=== PATIENT | female | born 1995 | race Caucasian/White ===

== ENCOUNTER 2018-03-07 18:58 | Emergency (ER) | payer MEDICAID, SELFPAY ==
[2018-03-07 19:11] VITALS: BP 149/106; PULSE 84; RESP 16; TEMP 36.9; O2SAT 98
--- NOTE | 2018-03-07 19:39 | DI.CT_ITS ---
SYMPTOM/DIAGNOSIS: LUQ PAIN ABDOMINAL AND PELVIC CT: 03/07 CT examination of the abdomen and pelvis was performed with a bolus infusion of 100 cc Omnipaque 350. Images obtained through the lung bases are unremarkable. Liver, spleen and pancreas appear normal. Gallbladder is contracted but normal. No biliary dilatation seen. There is question of mild wall thickening of gastric antrum. Stomach is distended. Question mild wall thickening of loops of small bowel in left upper quadrant and pelvis. Appendix is normal. Colon is unremarkable in appearance. WASTE SALVAGER structures appear intact. No abdominal wall hernia seen. No abdominal or pelvic adenopathy seen. Abdominal aorta is of normal diameter. No major vascular abnormalities seen. Adrenals and kidneys appear normal. CONCLUSION: Questionable findings of gastric antral and small bowel wall thickening, correlation requested regarding the possibility of gastritis and/or enteritis. No significant additional findings.
--- NOTE | 2018-03-07 19:43 | ED.GENADUL_ITS ---
Discharge Plan Disposition Patient Disposition: HOME Condition: Fair Discharge Details Chief Complaint: Abd Prob Clinical Impression: Enteritis Primary Care Provider: Court Wayne ED Provider: Wilma Soto Home Meds and New Rx's Prescriptions: New ondansetron [Zofran ODT] 4 mg tablet,disintegrating 4 mg PO QID PRN (Reason: nausea and vomiting) Qty: 10 RF: 0 Continue epinephrine [EpiPen 2-Fabián] 0.3 MG/0.3 ML auto-injector 0.3 mg IM ONCE Qty: 1 RF: 1 norethindrone (contraceptive) 0.35 MG tablet 1 tab-cap PO DAILY Qty: 3 RF: 3 Discharge Instructions Instructions: Enteritis (ED) Additional Instructions: Encourage hydration. Take Zofran as prescribed to help with nausea. Tylenol as needed for discomfort. May continue with Mylanta to help with stomach pain. Please follow up with primary care at the end of the week if symptoms persist. If you develop increased pain, inability to stay hydrated, fevers/chillls or other new/worsening symptoms please seek care urgently once again. Referrals: Court Wayne [Primary Care Provider] - Medical Decision Making Patient presents today with c/c of LUQ abdominal pain. Reports that she has had N/V/D x 2 days. V x 2 today. Had 3 soft BM today. States that two hours prior to arrival she had a sudden onset of LUQ pain. No prior surgeries. States she has been feeling hot/cold over the past few days. Patient afebrile, nontoxic appears. HR 84. Abdomen is soft on exam, no peritoneal findings. She is endorsing pain in LUQ, epigastric and periumbilical pain on exam. Patient reported that she was having blood in stool, CARLOS without abnormality. No pain on palpation. Heme negative stool. Will obtain laboratory evaluation. given the sudden onset of her discomfort and feeling of fever at home, will also obtain CT. CT reviewed by radiologist. Advised the liver is normal with no mass. Gallbladder is decompressed. Pancreas is normal no ductal dilation. Spleen is normal with no spinal megaly. Adrenals are normal, no mass. Kidneys are normal , no hydronephrosis. Mild scattered small bowel wall thickening is present especially in the pelvis. No obstruction. Appendix is normal with no signs of appendicitis. Bladder is unremarkable as visualized. Reproductive system is unremarkable as visualized. No free air, no significant fluid collection. No acute fracture dislocation. Soft tissues are unremarkable. No abdominal aortic aneurysm. No enlarged lymph nodes. Nipple jewelry was noted. Advised that the overall impression is small bowel findings to suggest mild enteritis with no other acute findings. Laboratory evaluation without significant abnormality. No leukocytosis. Lipase normal. Discussed findings with the patient. Advised radiologist interpreted CT as enteritis. Encourage hydration. Patient at this point is expressing increased discomfort is requesting pain medication as well as antiemetic. Patient given Toradol, IV Zofran and GI cocktail After above medication, she reports that her pain is greatly improved. Patient discharge diagnosis of enteritis. Encourage hydration. She was sent home with Zofran tonight to help with nausea. Advised she may use Tylenol to help with discomfort. But she may continue with Mylanta of the periodic relief. Primary primary care at the end of the week if symptoms persist. She was given strict return precautions. All of her questions and concerns were addressed and she is in agreement with this plan HPI General Mode of arrival: ambulatory . Date/Time Provider Initiated Documentation: 03/07/18 19:15 . Limitations to Documentation: no limitations . Information obtained by: patient . History of Present Illness 22 year old F presents to the emergency department with the chief complaint of LUQ abdominal pain, described as moderate, with intensity rated at 7. Quality is described as burning and stabbing, and is localized to the abdomen. Patient reports radiation to back. Patient started experiencing this hour(s) (2) and it has been constant. No relieving factors improve symptom(s), No exacerbating factors reported . Patient notes fever/chills ( no documented fever but endorses feeling hot/cold chills) and nausea/vomiting ( vomiting x 2 today); denies chest pain, cough (reports she had mild cough last week which has since resolved), headaches, loss of appetite (no change in appetite), rash, shortness of breath and weakness. Patient did receive the following treatments prior to arrival, none Related Data Home Medications Medication Instructions Recorded Confirmed epinephrine [EpiPen 2-Fabián] 0.3 mg IM ONCE #1 pack 01/07/16 03/07/18 norethindrone (contraceptive) 1 tab-cap PO DAILY #3 pack 09/07/16 03/07/18 ondansetron [Zofran ODT] 4 mg PO QID PRN #10 tab 03/07/18 Previous Rx's Medication Instructions Recorded ondansetron [Zofran ODT] 4 mg PO QID PRN #10 tab 03/07/18 Allergies Allergy/AdvReac Type Severity Reaction Status Date / Time lavender (Lavandula Allergy Severe Skin Rash Unverified 03/07/18 19:10 angustifolia) melon Allergy Severe tongue Unverified 03/07/18 19:10 swelling and throat closing pineapple Allergy Severe tongue Unverified 03/07/18 19:10 swells and throat closes No Known Drug Allergies Allergy Unverified 03/07/18 19:10 cantolope Allergy Severe throat Uncoded 03/07/18 19:10 closing and tongue swelling General Stated Complaint: Abd Prob ZINA: 3 Review of Systems Constitutional Reports as per HPI Cardiovascular Reports as per HPI, Denies chest pain, Denies rapid heart rate, Denies dyspnea and Denies dyspnea on exertion Respiratory Denies chest congestion, Denies cough, Denies dyspnea and Denies dyspnea on exertion Gastrointestinal Reports as per HPI Genitourinary Denies dyspareunia, Denies dysuria, Denies flank pain, Denies urinary urgency and Denies vaginal discharge Integumentary/Breasts Denies rash PFSH Family History Grandfather Diabetes Grandmother Diabetes Social History Smoking/Tobacco Use Status: Never Exam Const General: cooperative, healthy appearing, comfortable, no acute distress, well developed and well groomed Nutritional Appearance: average body habitus and well nourished Orientation: alert and awake Eyes General: appearance normal, both eyes and all related structures Resp Effort & Inspection: normal respiratory effort, able to speak in complete sentences and no respiratory distress Auscultation: clear to auscultation bilaterally Cardio Rate: regular rate Rhythm: regular rhythm Heart Sounds: S1 normal and S2 normal GI Inspection: normal to inspection, no abdominal wall ecchymosis, non-distended, no incisions and no visible herniation Palpation: soft, no hepatosplenomegaly, not firm, no guarding, no hepatomegaly, no hepatosplenomegaly, no masses, not rigid and tender in the epigastrum, in the LLQ and periumbilically; not at McBurney's point, Alvarez's sign negative and with no rebound tenderness Auscultation: hypoactive bowel sounds Rectal Exam - female: visual inspection normal, normal sphincter tone, No fecal impaction, No fissure, heme negative stool, No hemorrhoids, No laceration and No tenderness Back/Spine/Pelvis Back: no CVA tenderness Skin General skin exam: no rashes or lesions noted Neuro General: alert and awake Cognition: normal cognition Speech: speech normal Gait: normal gait Extrem General: no pedal edema and no calf tenderness Psych Appearance: grossly normal and well kempt Mental Status: mental status grossly normal Speech and Movement: speech and movement normal Course Vital Signs Temperature 36.9 C 03/07/18 19:11 Pulse 84 03/07/18 19:11 Respiratory Rate 16 03/07/18 19:11 Blood Pressure 149/106 H 03/07/18 19:11 Pulse Oximetry 98 03/07/18 19:11 Temperature 36.9 C 03/07/18 19:11 Temperature Source Temporal Artery Scan 03/07/18 19:11 Pulse 84 03/07/18 19:11 Respiratory Rate 16 03/07/18 19:11 Respiratory Effort 03/07/18 19:11 Blood Pressure 149/106 H 03/07/18 19:11 Blood Pressure Position Sitting 03/07/18 19:11 Pulse Oximetry 98 03/07/18 19:11 Oxygen Delivery Method Room Air 03/07/18 19:11 Oxygen Flow Rate 0 03/07/18 19:11 Pain Level 7 03/07/18 19:11
[2018-03-07 20:07] LABS: Abs Immature Grans 0.03 k/cumm (0.0-0.09); Absolute Basophil Count 0.01 k/cumm (0.0-0.2); Absolute Eosinophil Count 0.07 k/cumm (0.0-0.7); Absolute Lymphocyte Count 1.54 k/cumm (1.2-3.4); Absolute Monocyte Count 0.74 k/cumm (0.11-0.7); Absolute Neutrophil Count 6.46 k/cumm (1.2-6.7); Basophils % 0.1; Eosinophils % 0.8; HCT 40.4 % (36.0-46.0); HGB 13.8 g/dL (12.0-15.5); Immature Grans % 0.3; Lymphocytes % 17.4; Mean Corp. HGB Concentration 34.2 g/dL (32.0-36.0); Mean Corpuscular Hemoglobin 30.7 pg (27.0-33.0); Mean Platelet Volume 10.6 fL (8.0-11.0); Monocytes % 8.4; Platelet Count 286 x1000/uL (130-400); RBC 4.49 m/cumm (4.00-5.20); RBC Distribution Width 11.9 % (11.7-14.6); White Blood Cell Count 8.85 k/cumm (4.4-10.8)
[2018-03-07 20:18] LABS: Bilirubin Negative (Negative); Blood Negative (Negative); Clarity Clear; Glucose Negative (Negative); Ketones Negative (Negative); Leukocyte Esterase Negative (Negative); Nitrite Negative (Negative); Urobilinogen 0.2 EU/dL (Up TO 0.2); pH 8.5 (5-8)
[2018-03-07 20:24] LABS: ALT 30 U/L (12-78); AST 13 U/L (15-37); Albumin 3.8 g/dL (3.4-5.0); Alkaline Phosphatase 76 U/L (46-116); Anion Gap 5.2 mmol/L (3-11); BUN 7 mg/dL (7-18); Bilirubin, Total 0.2 mg/dL (0.2-1.0); CO2 29.8 mmol/L (21.0-32.0); CREATININE 0.74 mg/dL (0.55-1.02); Calcium 8.9 mg/dL (8.5-10.1); Chloride 104 mmol/L (98-107); Glucose 90 mg/dL (70-100); Lipase 184 U/L (73-393); Potassium 3.5 mmol/L (3.5-5.1); Sodium 139 mmol/L (136-145); Total Protein 7.9 g/dL (6.4-8.2)
[2018-03-07] MEDS: Normal Saline 1,000 ML 1000 ML IV (20:30)
[2018-03-07] MEDS: Omnipaque 350 MG/ML 100 ML BTL IJ (20:31)
--- NOTE | 2018-03-07 21:35 | DI.VRAD_ITS ---
EXAM: CT Abdomen and Pelvis With Intravenous Contrast EXAM DATE/TIME: 03/07/2018 7:41 PM CLINICAL HISTORY: 22 years old, female; Pain; Abdominal pain; Localized; Left upper quadrant (luq); Patient HX: Luq pain TECHNIQUE: Axial computed tomography images of the abdomen and pelvis with intravenous contrast. Coronal and sagittal reformatted images were created and reviewed. COMPARISON: No relevant prior studies available. FINDINGS: Lower thorax: No acute findings. ABDOMEN: Liver: Normal. No mass. Gallbladder and bile ducts: The gallbladder is decompressed. Pancreas: Normal. No ductal dilation. Spleen: Normal. No splenomegaly. Adrenals: Normal. No mass. Kidneys and ureters: Normal. No hydronephrosis. Stomach and bowel: Mild scattered small bowel wall thickening is present especially in the pelvis. No obstruction. Appendix: No evidence of appendicitis. PELVIS: Bladder: Unremarkable as visualized. Reproductive: Unremarkable as visualized. ABDOMEN and PELVIS: Intraperitoneal space: Normal. No free air. No significant fluid collection. Bones/joints: No acute fracture. No dislocation. Soft tissues: Unremarkable. Vasculature: Normal. No abdominal aortic aneurysm. Lymph nodes: Normal. No enlarged lymph nodes. Other findings: Nipple jewelry is present. IMPRESSION: Small bowel findings may be indicative of a mild enteritis. No other acute findings. Dictated and Authenticated by: Jose Antonio Morrison MD. Ordering:RACH SERRANO MD
[2018-03-07] MEDS: Ketorolac 30 MG/ML VIAL IVP (21:45)
[2018-03-07] MEDS: Ondansetron 4 MG/2 ML VIAL IVP (21:46)
[2018-03-07 22:09] VITALS: BP 129/78; PULSE 84; RESP 18; TEMP 36.8; O2SAT 98
== END 2018-03-07 22:10 | disposition home or self-care (01) ==
PROVIDERS: Emergency Provider Physician Assistant; PCP Nurse Practitioner Pediatrics
DX: K52.9 Noninfective gastroenteritis and colitis, unspecified (principal)
CPT/HCPCS: 36415; 80053; 81025; 83690; 96361; 96374; 96375; 99285; 74177; 81003; 85025; J1885; J2405; J3490

== ENCOUNTER 2019-05-04 10:22 | Emergency (ER) | payer MEDICAID, SELFPAY ==
[2019-05-04 10:28] VITALS: BP 127/88; PULSE 84; RESP 18; TEMP 35.9; O2SAT 100
[2019-05-04] MEDS: Tetracaine 0.5% 4 ML BTL OP (10:31)
--- NOTE | 2019-05-04 10:33 | W.ED.GENAD ---
Discharge Plan Disposition Patient Disposition: HOME Condition: Good Discharge Details Chief Complaint: EyeProblem Clinical Impression: Sensation of foreign body in eye Primary Care Provider: None,None ED Provider: Wilma Soto Home Meds and New Rx's Prescriptions: Continued epinephrine [EpiPen 2-Fabián] 0.3 MG/0.3 ML auto-injector 0.3 mg IM ONCE Qty: 1 RF: 1 norethindrone (contraceptive) 0.35 MG tablet 1 tab-cap PO DAILY Qty: 3 RF: 3 ondansetron [Zofran ODT] 4 mg tablet,disintegrating 4 mg PO QID PRN (Reason: nausea and vomiting) Qty: 10 RF: 0 Discharge Instructions Instructions: Eye Foreign Body (ED) Additional Instructions: Encourage hydration. Please do not place any more contacts until you are evaluated by [facility]. Please call them tomorrow to schedule appointment as soon as possible. If you develop redness, drainage, pain, visual changes or other new/worsening symptoms please seek care urgently once again. Your exam is reassuring today I do not see any evidence of retained foreign body. Referrals: [facility] [Outside] Court Wayne [NURSE PRACTITIONER] - Discharge Data Discharge Date/Time-TO BE ENTERED AT DEPARTURE: 05/04/19 11:15 Medical Decision Making Patient is female presents today with chief complaint of retained contact in her left eye. She reports that she put in a fresh contact this morning and felt that it migrated upwards and since that time is had persistent symptoms. She states that she has attempted flushing the eye ? her sensation persist. Patient reports she is up-to-date on tetanus. Denies any acute visual change. On exam, patient is wanting to hold left eye shut. No obvious abnormality of the eye. No injection, discharge, FB noted. Patient able to open eye well with administration of tetracaine. Feels improved after tetracaine. Fluorescein was used with no corneal abrasion, foreign body noted. Eyelid was everted and explored to maximal extent with no retained foreign body. Unable to identify contact. She did not see any evidence of any corneal abrasion. I was flushed with IV fluid by nursing staff. Believes all sensation and patient was likely to flush this out prior to arrival. I did advise follow-up with [facility], patient's ophthalmologic home within the next few days. I also advised that she abstain from contacts and use her glasses until cleared by them. She is given strict return precautions. All of her questions and concerns were addressed she is in agreement this plan. Patient is feeling much improved at the time of discharge. HPI General Mode of arrival: ambulatory. Date/Time Provider Initiated Documentation: 05/04/19 10:25. Limitations to Documentation: no limitations. Information obtained by: patient and RN notes reviewed. History of Present Illness 23 year old F presents to the emergency department with the chief complaint of retained contact lens, left eye, described as mild, with intensity rated at 3. Quality is described as aching (FB sensation), and is localized to the eyes. Patient reports no radiation. Patient started experiencing this minute(s) and it has been constant. No relieving factors improve symptom(s), No exacerbating factors reported . Patient notes no other symptoms.. Patient did receive the following treatments prior to arrival, none Related Data Home Medications Medication Instructions Recorded Confirmed epinephrine [EpiPen 2-Fabián] 0.3 mg IM ONCE #1 pack 01/07/16 05/04/19 norethindrone (contraceptive) 1 tab-cap PO DAILY #3 pack 09/07/16 05/04/19 ondansetron [Zofran ODT] 4 mg PO QID PRN #10 tab 03/07/18 05/04/19 Previous Rx's Medication Instructions Recorded ondansetron [Zofran ODT] 4 mg PO QID PRN #10 tab 03/07/18 Allergies Allergy/AdvReac Type Severity Reaction Status Date / Time lavender (Lavandula Allergy Severe Skin Rash Unverified 05/04/19 10:30 angustifolia) melon Allergy Severe tongue Unverified 05/04/19 10:30 swelling and throat closing pineapple Allergy Severe tongue Unverified 05/04/19 10:30 swells and throat closes No Known Drug Allergies Allergy Unverified 05/04/19 10:30 cantolope Allergy Severe throat Uncoded 05/04/19 10:30 closing and tongue swelling General Stated Complaint: EyeProblem ZINA: 4 Review of Systems Constitutional Constitutional: Reports as per HPI, Denies chills, Denies fatigue, Denies fever(s) and Denies headache(s) Eyes Eyes: Reports as per HPI ENT Ears, Nose, Mouth, and Throat: Denies headache(s) Cardiovascular Cardiovascular: Reports as per HPI, Denies chest pain and Denies lightheadedness Respiratory Respiratory: Denies cough Integumentary/Breasts Skin/Breast: Reports as per HPI, Denies rash, Denies skin pain and Denies skin swelling Neurologic Neurologic: Denies headache(s) and Denies radicular pain Endocrine Endocrine: Denies fatigue PFSH Family History Grandfather Diabetes Grandmother Diabetes Social History Smoking/Tobacco Use Status: Never Alcohol Intake: never Drug use: Never Substance use type: does not use Do you feel safe at home: Yes Do you feel safe in your relationship?: Yes Exam Const General: cooperative, healthy appearing, comfortable, no acute distress, well developed and well groomed Nutritional Appearance: average body habitus and well nourished Orientation: alert, awake and oriented x3 HENMT Head: normal to inspection, normocephalic and atraumatic Ears: hearing grossly normal bilaterally and external ears normal General nose exam: external nose normal and nares normal Face and sinus: normal facial exam and face symmetric Mouth: oral mucosae normal, lip normal and moist mucous membranes Eyes General: appearance normal, both eyes and all related structures Visual Yoder: normal visual yoder by confrontation Alignment and Position: alignment normal and position normal Periorbital: periorbital findings normal Eyelids: eyelids normal (eyelids everted, no FB noted) Conjunctivae: conjunctivae normal Sclera: sclerae normal Cornea: corneas normal and fluorescein used Pupils: PERRL, normal by confrontation and accommodation normal EOM: EOM intact bilaterally Resp Effort & Inspection: normal respiratory effort, able to speak in complete sentences and no respiratory distress Skin General skin exam: no rashes or lesions noted Neuro General: alert, awake and oriented x3 Cranial Nerves: CN's II-XI intact bilaterally Cognition: normal cognition Speech: speech normal Gait: normal gait Psych Appearance: grossly normal and well kempt Mental Status: mental status grossly normal Speech and Movement: speech and movement normal Course Vital Signs Vital signs: Vital Signs Temperature 35.9 C L 05/04/19 10:28 Pulse 84 05/04/19 10:28 Respiratory Rate 18 05/04/19 10:28 Blood Pressure 127/88 05/04/19 10:28 Pulse Oximetry 100 05/04/19 10:28 Temperature 35.9 C L 05/04/19 10:28 Temperature Source Tympanic 05/04/19 10:28 Pulse 84 05/04/19 10:28 Respiratory Rate 18 05/04/19 10:28 Respiratory Effort Non-Labored 05/04/19 10:28 Blood Pressure 127/88 05/04/19 10:28 Blood Pressure Position Sitting 05/04/19 10:28 Pulse Oximetry 100 05/04/19 10:28 Oxygen Delivery Method Room Air 05/04/19 10:28 Oxygen Flow Rate 0 05/04/19 10:28 Pain Level 3 05/04/19 10:28
[2019-05-04] MEDS: Fluorescein STRIPS 100/BOX 1 MG OP (10:35)
== END 2019-05-04 11:15 | disposition home or self-care (01) ==
LOC: ER 11:15
PROVIDERS: Emergency Provider Physician Assistant
DX: H18.822 Corneal disorder due to contact lens, left eye (principal); Z71.1 Person with feared health complaint in whom no diagnosis is made
CPT/HCPCS: 99283

== ENCOUNTER 2019-09-14 08:38 | Outpatient (CLI) | payer MEDICAID, SELFPAY ==
[2019-09-17 11:19] LABS: SARS-CoV-2 RNA Undetected (Undetected); SARS-CoV-2 Specimen Source Nasopharynx
== END 2019-09-14 08:58 ==
PROVIDERS: Visit Provider Pediatrics
DX: R50.9 Fever, unspecified (principal); R05 Cough
CPT/HCPCS: U0003

== ENCOUNTER 2019-12-18 11:16 | Outpatient (REF) | payer MEDICAID, SELFPAY ==
--- NOTE | 2019-12-18 10:30 | PAPFT_PTH ---
PATIENT: Macie Adan LOC: [facility] U#:[id number] AGE/SX: 24/F ROOM: RE12/18/[address]: Makenna Fletcher NP : 1995 BED: DIS: 12/18/2019 SPEC #: [id number] RECD: 12/18/19 12:59 STATUS: KATHLEEN REVanita #: [id number] TERI: 12/18/19 10:[address]: Makenna Fletcher NP DEPT: [facility] Cytology RECD BY: Morelia Hay ENTERED: 12/18/19 12:59 SP TYPE: PAPFT KASIE DR: None Tissues: 1 - CX/ENDOCX FOR PAP SMEARS Procedures: PAP THIN PREP/UVM Screening Comments: [id number] (CHLAMYDIA/GC)
[2019-12-19 15:00] LABS: GC Result Negative (Negative)
[2019-12-19 15:27] LABS: Chlamydia Result Positive (Negative)
== END 2019-12-18 11:36 ==
LOC: LBN 11:16
PROVIDERS: Visit Provider Nurse Practitioner Women's Health
DX: Z12.4 Encounter for screening for malignant neoplasm of cervix (principal)
CPT/HCPCS: 87491; 87591; 88142

== ENCOUNTER 2019-12-19 14:54 | Emergency (ER) | payer MEDICAID, SELFPAY ==
[2019-12-19 14:59] VITALS: BP 143/81; PULSE 106; TEMP 36.7; O2SAT 100
--- NOTE | 2019-12-19 15:10 | W.ED.GENAD ---
Discharge Plan Discharge Details Chief Complaint: RashLesion Primary Care Provider: None,None ED Provider: Constantine Orourke Home Meds and New Rx's Prescriptions: No Action Nexplanon 68 mg implant 1 implant SBD ONCE RF: 0 epinephrine [EpiPen 2-Fabián] 0.3 MG/0.3 ML auto-injector 0.3 mg IM ONCE Qty: 1 RF: 1 diphenhydramine HCl [Benadryl Allergy] 25 mg Tablet 25 mg PO Q6H PRNRF: 0 Medical Decision Making 23-year-old female with approximately 30 raised, erythematous, pruritic lesions that blanches to the touch and appear to be either insect bites or urticaria with small areas of excoriation that now have a slight honey colored crust. She has no systemic signs or symptoms of allergic reaction.. Will treat with oral burst of prednisone, oral antihistamine, topical mupirocin. She understands homecare as well as indications to seek reevaluation. HPI General Mode of arrival: ambulatory. Date/Time Provider Initiated Documentation: 12/19/19 14:54. Limitations to Documentation: no limitations. Information obtained by: patient. History of Present Illness 24 year old F presents to the emergency department with the chief complaint of Rash primarily on legs, described as moderate, Quality is described as dull and constant, and is localized to the left, right and lower extremity. Patient reports no radiation. Patient started experiencing this day(s) and it has been constant. No relieving factors improve symptom(s), No exacerbating factors reported . Patient notes denies fever/chills, shortness of breath and syncope. Patient did receive the following treatments prior to arrival, none Related Data Home Medications Medication Instructions Recorded Confirmed epinephrine [EpiPen 2-Fabián] 0.3 mg IM ONCE #1 pack 01/07/16 12/19/19 etonogestrel 68 mg subdermal 1 implant SBD ONCE 12/18/19 12/19/19 implant diphenhydramine HCl [Benadryl 25 mg PO Q6H PRN 12/19/19 12/19/19 Allergy] Allergies Allergy/AdvReac Type Severity Reaction Status Date / Time lavender (Lavandula Allergy Severe Skin Rash Unverified 12/19/19 15:04 angustifolia) melon Allergy Severe tongue Unverified 12/19/19 15:04 swelling and throat closing pineapple Allergy Severe tongue Unverified 12/19/19 15:04 swells and throat closes No Known Drug Allergies Allergy Unverified 12/19/19 15:04 cantolope Allergy Severe throat Uncoded 12/19/19 15:04 closing and tongue swelling General Stated Complaint: RashLesion ZINA: 4 Review of Systems Narrative: No wheezing, difficulty breathing, change to voice or change in swallowing. She is otherwise been well. Does not note any environmental exposures. [facility] Medical History Presence of subdermal contraceptive implant (Acute) Social History Smoking/Tobacco Use Status: Never Alcohol Intake: never Drug use: Never Substance use type: does not use Do you feel safe at home: Yes Do you feel safe in your relationship?: Yes Female Reproductive History Menstrual control method: implanted History History 0 Para Hx # Term Pregnancies Multiple births Hx # Pregnancies Ectopic pregnancies AB induced Hx Number of Living Children AB spontaneous Exam Narrative Exam Narrative: GEN: awake, alert, oriented 3. Pleasant, well groomed, interactive. HEAD: Normocephalic, atraumatic ENT: Mucous membranes moist, oropharynx unremarkable, External ear exam unremarkable EYES: PERRL, EOMI NECK: Full ROM, no IGOR, no menigismus CHEST/RESP: Nontender, clear to auscultation bilateral, no wheeze/rhonchi/rales CARDIOVASCULAR: RRR, no murmur, rub jay. 2+ Rad pulse bilateral. Not tachycardic at the time of my exam ABDOMEN: Soft, nontender, no mass. +Bowel sounds EXT: Full ROM, no edema, raised, erythematous, blanching lesions present primarily on the lower extremity bilaterally as well as the right upper extremity, anterior abdomen wall. There is slight honey scale to them. Neuro: Grossly normal neurologic exam, conversant, interactive. Psych: Speech fluent, thoughts congruent, affect normal Course Vital Signs Vital signs: Vital Signs Temperature 36.7 C 12/19/19 14:59 Pulse 106 H 12/19/19 14:59 Blood Pressure 143/81 H 12/19/19 14:59 Pulse Oximetry 100 12/19/19 14:59 Temperature 36.7 C 12/19/19 14:59 Temperature Source Temporal Artery Scan 12/19/19 14:59 Pulse 106 H 12/19/19 14:59 Respiratory Effort Non-Labored 12/19/19 15:02 Blood Pressure 143/81 H 12/19/19 14:59 Blood Pressure Position Sitting 12/19/19 14:59 Pulse Oximetry 100 12/19/19 14:59 Oxygen Delivery Method Room Air 12/19/19 14:59 Oxygen Flow Rate 0 12/19/19 14:59 Pain Level 5 12/19/19 14:59
[2019-12-19] MEDS: predniSONE 20 MG TAB 60 MG PO (15:18)
[2019-12-19] MEDS: Famotidine 20 MG TAB 40 MG PO (15:19)
== END 2019-12-19 15:49 | disposition home or self-care (01) ==
PROVIDERS: Emergency Provider Emergency Medicine
DX: L50.0 Allergic urticaria (principal)
CPT/HCPCS: 99283; J7512

== ENCOUNTER 2019-12-20 19:35 | Emergency (ER) | payer MEDICAID, SELFPAY ==
[2019-12-20 19:40] VITALS: BP 127/78; PULSE 110; RESP 18; TEMP 36.6; O2SAT 98
--- NOTE | 2019-12-20 20:11 | W.ED.GENAD ---
Discharge Plan Disposition Patient Disposition: HOME Condition: Good Discharge Details Chief Complaint: RashLesion Clinical Impression: Rash Primary Care Provider: None,None ED Provider: Chico Cruz Home Meds and New Rx's Prescriptions: Continued Nexplanon 68 mg implant 1 implant SBD ONCE RF: 0 epinephrine [EpiPen 2-Fabián] 0.3 MG/0.3 ML auto-injector 0.3 mg IM ONCE Qty: 1 RF: 1 diphenhydramine HCl [Benadryl Allergy] 25 mg Tablet 25 mg PO Q6H PRNRF: 0 prednisone 20 mg tablet 40 mg PO DAILY 5 Days Qty: 10 RF: 0 famotidine 20 mg tablet 20 mg PO BID Qty: 20 RF: 0 Discharge Instructions Instructions: Acute Rash (ED) Additional Instructions: At this time it is not clear exactly what the etiology is of your symptoms, however there is concerned that it can be a mild rash secondary to mild vasculitis. It is important to continue the steroid. Please continue to take the prednisone as directed. Also continue to take the Benadryl 25 mg every 6 hours as directed and apply the mupirocin ointment. Please return in 48 hours for recheck. Please take a picture of your rash every day and the same lighting, from the same perspective. Please [place] all the current lesions that you have so that it is clear when new lesions develop. You can [place] the new lesions in a different color ink. If you notice any worsening of your symptoms, or any new symptoms such as lesions on your genitals, lesions in your mouth, significantly worsening rash, fever, chills, swelling, vomiting, diarrhea, fever, chills, shortness of breath, chest pain, numbness, weakness, or fainting , please return immediately to the emergency department for reevaluation. Please follow up with your primary care provider as soon as possible for reassessment and reevaluation. As always, it was a pleasure participating in your medical care today. Stand Alone Forms: Work Release Medical Decision Making Pleasant 24-year-old female with no significant past medical history presents today for evaluation of rash. She was just here yesterday for evaluation of the rash but has noticed a change. History reveals that for the last 3 days she has had this mild rash just developed on her right ankle right arm and then a few small scattered lesions on her left arm and stomach. They are notably itchy. She has a dog that does have its flea and tick medicine. None of her other roommates have any rash. She has not been outdoors, has had no foreign travel, has had no new detergents or any other atypical factors. She has not been working outside. No new clothes. Of note a day after the rash started she was contacted by [facility] that she had a positive diagnosis for chlamydia. She was given a single dose of oral antibiotics, no prolonged dose. The rash continued, yesterday she was seen, evaluated by Dr. Sharma, and at that time the rash looked urticarial. She was started on steroids, Benadryl, and mupirocin ointment. She has been taking this as directed. Today she has noticed that there is been a slight and mild spread of the rash and the color of the lesions have not changed. They still remain itchy. She has no other complaints at this time. No other modifying factors. Patient denies any family history of atypical rashes, Behcet's disease, Henoch-Estuardo?nlein purpura, smoking, or personal history of syphilis. Ethnicity is [place]. Physical exam demonstrates Warm, Dry. Negative Nikolsky sign. No large vesicles or bulla. No palpable purpura. No oral lesions. No mucosal lesions. No evidence of severe cellulitis. No evidence of vaccine preventable rash. Patient has 10-15 lesions on her right ankle, roughly 10 lesions on her right proximal arm, and a few scattered lesions. They appear slightly violaceous in nature, easily blanching, minimally raised, minimally tender, each lesion is roughly 1.5 to 2 cm in diameter. At this time lesions are inconsistent with palpable purpura or Henoch-Estuardo?nlein purpura, and more consistent with a mild vasculitic type lesion. No oral lesions. Symptoms at this time appear more consistent with a urticarial rash that has now transitioned to what appears to be a little bit more vasculitic in appearance. No flank or CVA tenderness. The patient has had recent work-up for HIV and hepatitis but these results have not yet returned from [facility]. At this time there is no clear indication of severe systemic illness or etiology. I do not feel that labs are currently indicated. I do feel the current treatment modality is appropriate and that she is only unfortunately gotten a short treatment. So far of 24 hours. Recommend continued treatment with steroids and Benadryl. I have requested that she return to the ER in 48 hours for reassessment, and if there is any new symptoms or any worsening of the rash we will get a laboratory work-up for further differentiation. At this time I see no current clinical indication for that though. I suspect she will have improvement with continued treatment. She does not have a PCP, and we will put in for referral to a new primary care provider, as well as a dermatology referral on an outpatient basis with Dr. Irwin Dalal. At this time symptoms appear inconsistent with Behcet's disease, Henoch-Estuardo?nlein purpura, severe systemic vasculitis, dress syndrome. No current clinical evidence of staph scalded skin syndrome, erythema multiforme, erythema migrans, toxic epidermal necrolysis, Price-Esteban syndrome, Kawasaki-like rash, meningococcemia, pemphigus vulgaris, or necrotizing fasciitis. Discussed red flags for which to return. I have extensively reviewed the treatment plan and discharge instructions with the patient. I have addressed all patient concerns at this time. The patient was made aware of what symptoms to monitor for that would warrant a return to the emergency department. Discussed the plan with the patient, they demonstrate verbal understanding and agreement with our assessment and plan at this time. HPI General Date/Time Provider Initiated Documentation: 12/20/19 19:50. HPI Narrative: Pleasant 24-year-old female with no significant past medical history presents today for evaluation of rash. She was just here yesterday for evaluation of the rash but has noticed a change. History reveals that for the last 3 days she has had this mild rash just developed on her right ankle right arm and then a few small scattered lesions on her left arm and stomach. They are notably itchy. She has a dog that does have its flea and tick medicine. None of her other roommates have any rash. She has not been outdoors, has had no foreign travel, has had no new detergents or any other atypical factors. She has not been working outside. No new clothes. Of note a day after the rash started she was contacted by [facility] that she had a positive diagnosis for chlamydia. She was given a single dose of oral antibiotics, no prolonged dose. The rash continued, yesterday she was seen, evaluated by Dr. Sharma, and at that time the rash looked urticarial. She was started on steroids, Benadryl, and mupirocin ointment. She has been taking this as directed. Today she has noticed that there is been a slight and mild spread of the rash and the color of the lesions have not changed. They still remain itchy. She has no other complaints at this time. No other modifying factors. Patient denies any family history of atypical rashes, Behcet's disease, Henoch-Estuardo?nlein purpura, smoking, or personal history of syphilis. Ethnicity is [place]sk[place]. Related Data Home Medications Medication Instructions Recorded Confirmed epinephrine [EpiPen 2-Fabián] 0.3 mg IM ONCE #1 pack 01/07/16 12/20/19 etonogestrel 68 mg subdermal 1 implant SBD ONCE 12/18/19 12/20/19 implant diphenhydramine HCl [Benadryl 25 mg PO Q6H PRN 12/19/19 12/20/19 Allergy] famotidine 20 mg PO BID #20 tab 12/19/19 12/20/19 prednisone 40 mg PO DAILY 5 Days #10 tab 12/19/19 12/20/19 Previous Rx's Medication Instructions Recorded famotidine 20 mg PO BID #20 tab 12/19/19 prednisone 40 mg PO DAILY 5 Days #10 tab 12/19/19 Allergies Allergy/AdvReac Type Severity Reaction Status Date / Time lavender (Lavandula Allergy Severe Skin Rash Unverified 12/19/19 15:04 angustifolia) melon Allergy Severe tongue Unverified 12/19/19 15:04 swelling and throat closing pineapple Allergy Severe tongue Unverified 12/19/19 15:04 swells and throat closes No Known Drug Allergies Allergy Unverified 12/19/19 15:04 cantolope Allergy Severe throat Uncoded 12/19/19 15:04 closing and tongue swelling General Stated Complaint: RashLesion ZINA: 4 Review of Systems All systems reviewed & are unremarkable except as noted in HPI and below PFSH Medical History Presence of subdermal contraceptive implant (Acute) Family History Grandfather Diabetes Grandmother Diabetes Social History Smoking/Tobacco Use Status: Never Alcohol Intake: never Drug use: Never Substance use type: does not use Do you feel safe at home: Yes Do you feel safe in your relationship?: Yes Female Reproductive History Menstrual control method: implanted History History 0 Para Hx # Term Pregnancies Multiple births Hx # Pregnancies Ectopic pregnancies AB induced Hx Number of Living Children AB spontaneous Exam Narrative Exam Narrative: 1.Const: Well-nourished, Well-developed, appearing stated age 2.Eyes: PERRL, no conjunctival injection, and symmetrical lids. 3.ENT: Atraumatic external nose and ears. Moist MM. Neck: Symmetric, trachea midline, No thyromegaly. No oral lesions, cutaneous ulcers, or other abnormalities in the oropharynx. 4.CVS: +S1/S2, No murmurs or gallops. Peripheral pulses 2+ and equal in all extremities. Brisk capillary refill in all extremities. 5.RESP: Unlabored respiratory effort. Clear to auscultation bilaterally. No wheezes rales or rhonchi 6.GI: Soft, Nontender/Nondistended, No hepatosplenomegaly. No guarding or rebound. 7.MSK: Normocephalic/Atraumatic, Extremities w/o deformity or ttp No cyanosis or clubbing, Normal movement of all extremities 8.Skin: Warm, Dry. Negative Nikolsky sign. No large vesicles or bulla. No palpable purpura. No oral lesions. No mucosal lesions. No evidence of severe cellulitis. No evidence of vaccine preventable rash. Patient has 10-15 lesions on her right ankle, roughly 10 lesions on her right proximal arm, and a few scattered lesions. They appear slightly violaceous in nature, easily blanching, minimally raised, minimally tender, each lesion is roughly 1.5 to 2 cm in diameter. At this time lesions are inconsistent with palpable purpura or Henoch-Estuardo?nlein purpura, and more consistent with a mild vasculitic type lesion. 9.Neuro: nurse midwife II-XII grossly intact. Sensation grossly intact, no focal neurologic deficits. 10.Psych: (AAO) x3. Appropriate mood and affect Course Vital Signs Vital signs: Vital Signs Temperature 36.6 C 12/20/19 19:40 Pulse 110 H 12/20/19 19:40 Respiratory Rate 18 12/20/19 19:40 Blood Pressure 127/78 12/20/19 19:40 Pulse Oximetry 98 12/20/19 19:40 Temperature 36.6 C 12/20/19 19:40 Temperature Source Skin 12/20/19 19:40 Pulse 110 H 12/20/19 19:40 Respiratory Rate 18 12/20/19 19:40 Respiratory Effort Non-Labored 12/20/19 19:42 Blood Pressure 127/78 12/20/19 19:40 Blood Pressure Position Sitting 12/20/19 19:40 Pulse Oximetry 98 12/20/19 19:40 Oxygen Delivery Method Room Air 12/20/19 19:40 Oxygen Flow Rate 0 12/20/19 19:40 Pain Level 6 12/20/19 19:40
--- NOTE | 2019-12-20 20:15 | NUR.NOTE ---
referred to CM of PCP 12/20/2019. Referred to Dr. Stanley, Demotologist for rash/vasculitious Nursing Note:
--- NOTE | 2019-12-21 09:33 | PDOC.ERCMPRO ---
- If Service Date Differs Date of service: 12/21/19 Time of Service: 09:33 Care Management Progress Note CM coordinates a referral to Alexander Camacho DO, [facility], of [facility] to assist Macie in establishing care with a PCP. Macie was seen twice in the ED for a rash.
== END 2019-12-20 20:29 | disposition home or self-care (01) ==
PROVIDERS: Emergency Provider Student in an Organized Health Care Education/Training Program
DX: R21 Rash and other nonspecific skin eruption (principal)
CPT/HCPCS: 99282

== ENCOUNTER 2019-12-22 16:53 | Emergency (ER) | payer MEDICAID, SELFPAY ==
[2019-12-22 16:56] VITALS: BP 121/83; PULSE 78; RESP 14; TEMP 36.7; O2SAT 100
--- NOTE | 2019-12-22 17:42 | W.ED.GENAD ---
Discharge Plan Disposition Patient Disposition: HOME Condition: Stable Discharge Details Chief Complaint: Recheck Clinical Impression: Rash Primary Care Provider: None,None ED Provider: Yojana Olivera Home Meds and New Rx's Prescriptions: New ondansetron 4 mg tablet,disintegrating 4 mg PO TID PRN (Reason: nausea and vomiting) Qty: 6 RF: 0 Continued Nexplanon 68 mg implant 1 implant SBD ONCE RF: 0 epinephrine [EpiPen 2-Fabián] 0.3 MG/0.3 ML auto-injector 0.3 mg IM ONCE Qty: 1 RF: 1 diphenhydramine HCl [Benadryl Allergy] 25 mg Tablet 25 mg PO Q6H PRNRF: 0 famotidine 20 mg tablet 20 mg PO BID Qty: 20 RF: 0 Discharge Instructions Instructions: Acute Rash (ED) Additional Instructions: Take the steroids and Pepcid until finished. Take the Zofran as needed and directed for nausea and vomiting. Take the Benadryl as needed and directed for itching. You will receive a call from care management regarding a follow-up appointment with dermatology at [facility]. Return immediately to the emergency department if you develop any worsening or concerning symptoms such as fever, vomiting worsening headache or any other concerns. Discharge Data Discharge Date/Time-TO BE ENTERED AT DEPARTURE: 12/22/19 20:10 Discharge Physician: Yojana Olivera Medical Decision Making 1714 -- 24-year-old female presents for recheck of a diffuse itchy and painful rash for the past week. She was seen here several days ago and treated for urticaria with steroids. She was seen a few days later and thought presentation consistent with vasculitis and referred to follow-up with dermatology, continue steroids and return here for recheck. She states overall the rash appears improved. However since starting steroids, she has developed lightheadedness, nausea, body aches and headache. Differential diagnosis includes steroid reaction, acute viral process, coagulopathy, other infectious process. History and presentation not consistent with systemic vasculitis, meningococcemia, HSP, toxic epidermal necrolysis. Her vitals are within normal limits and she appears nontoxic. She had a couple episodes of dry heaving during examination. Will place an IV, check screening labs, give fluids, Toradol, Zofran and reassess. 1929 --labs reviewed and unremarkable. White blood cell count 11.9. Potassium 3.3. Normal coagulation studies, ESR, CRP. test negative. Patient reassessed and she feels better and feels good to go home. Discussed with patient that work-up is reassuring for an acute infectious, hematologic, or rheumatologic process. She is advised to continue her steroids and Pepcid. She has already been placed on care management list to help for a follow-up appointment with dermatology at [facility]. She had inquired about obtaining STD labs for blood work she has ordered for Wednesday here through [facility]. We were able to obtain the blood necessary for these labs so patient did not have to return to the hospital on Wednesday. Medical Records Medical records reviewed: Yes I reviewed the patient's medical records. Lab Data Lab results reviewed: Yes I reviewed the patient's lab results. Labs: Laboratory Tests Range/Units 12/22/19 12/22/19 12/22/19 18:30 18:30 18:30 WBC (4.4-10.8) k/cumm 11.91 H RBC (4.00-5.20) m/cumm 4.55 Hgb (12.0-15.5) g/dL 14.3 Hct (36.0-46.0) % 42.7 MCV (80-95) fL 93.8 MCH (27.0-33.0) pg 31.4 MCHC (32.0-36.0) g/dL 33.5 RDW (11.7-14.6) % 11.4 L Plt Count (130-400) x1000/uL 274 MPV (8.0-11.0) fL 10.9 Immature Gran % % 0.3 Neutrophils % 59.9 Lymphocytes % 26.6 Monocytes % 12.8 Eosinophils % 0.3 Basophils % 0.1 Absolute Neutrophils (1.2-6.7) k/cumm 7.13 H Absolute Lymphocytes (1.2-3.4) k/cumm 3.17 Absolute Monocytes (0.11-0.7) k/cumm 1.52 H Absolute Eosinophils (0.0-0.7) k/cumm 0.04 Absolute Basophils (0.0-0.2) k/cumm 0.01 Differential Comment Agrees w/ instrument RBC Morphology Normal ESR (0-20) mm/hr PT (9.3-11.0) sec INR (0.9-1.1) APTT (21.0-31.4) sec Sodium (136-145) mmol/L 141 Potassium (3.5-5.1) mmol/L 3.3 L Chloride (98-107) mmol/L 105 Carbon Dioxide (21.0-32.0) mmol/L 27.7 Anion Gap (3-11) mmol/L 8.3 BUN (7-18) mg/dL 12 Creatinine (0.55-1.02) mg/dL 0.77 Estimated GFR/1.73 m2 (mL/min/1.73m2) >= 60.00 Glucose (74-106) mg/dL 84 Calcium (8.5-10.1) mg/dL 8.5 Total Bilirubin (0.2-1.0) mg/dL 0.3 AST (15-37) U/L 14 L ALT (14-59) U/L 35 Alkaline Phosphatase (46-116) U/L 60 C-Reactive Protein (0.0-0.3) mg/dL 0.05 Total Protein (6.4-8.2) g/dL 7.2 Albumin (3.4-5.0) g/dL 3.6 Lipase (73-393) U/L 139 Range/Units 12/22/19 12/22/19 18:30 18:30 WBC (4.4-10.8) k/cumm RBC (4.00-5.20) m/cumm Hgb (12.0-15.5) g/dL Hct (36.0-46.0) % MCV (80-95) fL MCH (27.0-33.0) pg MCHC (32.0-36.0) g/dL RDW (11.7-14.6) % Plt Count (130-400) x1000/uL MPV (8.0-11.0) fL Immature Gran % % Neutrophils % Lymphocytes % Monocytes % Eosinophils % Basophils % Absolute Neutrophils (1.2-6.7) k/cumm Absolute Lymphocytes (1.2-3.4) k/cumm Absolute Monocytes (0.11-0.7) k/cumm Absolute Eosinophils (0.0-0.7) k/cumm Absolute Basophils (0.0-0.2) k/cumm Differential Comment RBC Morphology ESR (0-20) mm/hr 9 PT (9.3-11.0) sec 9.8 INR (0.9-1.1) 1.0 APTT (21.0-31.4) sec 23.9 Sodium (136-145) mmol/L Potassium (3.5-5.1) mmol/L Chloride (98-107) mmol/L Carbon Dioxide (21.0-32.0) mmol/L Anion Gap (3-11) mmol/L BUN (7-18) mg/dL Creatinine (0.55-1.02) mg/dL Estimated GFR/1.73 m2 (mL/min/1.73m2) Glucose (74-106) mg/dL Calcium (8.5-10.1) mg/dL Total Bilirubin (0.2-1.0) mg/dL AST (15-37) U/L ALT (14-59) U/L Alkaline Phosphatase (46-116) U/L C-Reactive Protein (0.0-0.3) mg/dL Total Protein (6.4-8.2) g/dL Albumin (3.4-5.0) g/dL Lipase (73-393) U/L HPI General Mode of arrival: ambulatory. Date/Time Provider Initiated Documentation: 12/22/19 16:55. Limitations to Documentation: no limitations. Information obtained by: patient. HPI Narrative: Patient is a 24-year-old female who presents for recheck of her itchy and tender diffuse rash for the past week. She was seen here several days ago and diagnosed with urticaria and started on steroids. She presented the following day for worsening of her rash with purplish discoloration and tenderness of rash. It was thought at that time that her rash was possibly due to vasculitis and she was advised to follow-up with dermatology and to return here in 2 days for recheck. She states overall the rash seems improved but since starting steroid she has developed lightheadedness, headache, nausea and body aches. She denies any fever, sore throat, cough, chest pain, shortness of breath, abdominal pain, vomiting or diarrhea. Of note, she was treated for chlamydia recently but negative for gonorrhea. Related Data Home Medications Medication Instructions Recorded Confirmed epinephrine [EpiPen 2-Fabián] 0.3 mg IM ONCE #1 pack 01/07/16 12/22/19 etonogestrel 68 mg subdermal 1 implant SBD ONCE 12/18/19 12/22/19 implant diphenhydramine HCl [Benadryl 25 mg PO Q6H PRN 12/19/19 12/22/19 Allergy] famotidine 20 mg PO BID #20 tab 12/19/19 12/22/19 ondansetron 4 mg PO TID PRN #6 tab 12/22/19 Previous Rx's Medication Instructions Recorded famotidine 20 mg PO BID #20 tab 12/19/19 ondansetron 4 mg PO TID PRN #6 tab 12/22/19 Allergies Allergy/AdvReac Type Severity Reaction Status Date / Time lavender (Lavandula Allergy Severe Skin Rash Unverified 12/22/19 17:00 angustifolia) melon Allergy Severe tongue Unverified 12/22/19 17:00 swelling and throat closing pineapple Allergy Severe tongue Unverified 12/22/19 17:00 swells and throat closes No Known Drug Allergies Allergy Unverified 12/22/19 17:00 cantolope Allergy Severe throat Uncoded 12/22/19 17:00 closing and tongue swelling General Stated Complaint: Recheck ZINA: 4 Review of Systems All systems reviewed & are unremarkable except as noted in HPI and below Constitutional Constitutional: Reports as per HPI, Denies chills and Denies fever(s) Eyes Eyes: Denies blurry vision ENT Ears, Nose, Mouth, and Throat: Denies dizziness, Denies sore throat and Denies throat swelling Cardiovascular Cardiovascular: Denies chest pain and Denies dyspnea Respiratory Respiratory: Denies cough and Denies dyspnea Gastrointestinal Gastrointestinal: Denies abdominal pain, Denies diarrhea and Denies vomiting Genitourinary Genitourinary: Denies hematuria and Denies dysuria Musculoskeletal Musculoskeletal: Denies back pain and Denies numbness Integumentary/Breasts Skin/Breast: Denies lesions and Reports rash Neurologic Neurologic: Denies dizziness, Denies localized weakness and Denies numbness Allergic/Immunologic Allergic/Immunologic: Denies throat swelling PFSH Social History Smoking/Tobacco Use Status: Current-Occasional Tobacco Type: cigarettes Alcohol Intake: never Drug use: Never Substance use type: does not use Do you feel safe at home: Yes Do you feel safe in your relationship?: Yes Female Reproductive History Menstrual control method: implanted History History 0 Para Hx # Term Pregnancies Multiple births Hx # Pregnancies Ectopic pregnancies AB induced Hx Number of Living Children AB spontaneous Exam Const General: cooperative, healthy appearing and no acute distress HENMT Head: normal to inspection Face and sinus: normal facial exam Eyes General: appearance normal, both eyes and all related structures EOM: EOM intact bilaterally Neck Neck: normal visual inspection and No submandibular swelling Lymphatic: no lymphadenopathy noted Chest Chest: normal inspection of the chest and no tenderness Resp Effort & Inspection: normal respiratory effort and able to speak in complete sentences Auscultation: clear to auscultation bilaterally Cardio Rate: regular rate Rhythm: regular rhythm GI Inspection: normal to inspection Palpation: soft, not firm, not rigid and nontender Auscultation: normal bowel sounds Skin Other: Scattered erythematous papules noted to bilateral upper extremities, torso and bilateral feet which overall appear improved. Multiple purpuric lesions noted to right foot which appear to be improved from 2 days ago. Neuro General: patient alert, patient awake and patient oriented x3 Cognition: normal cognition Speech: speech normal Motor: muscle tone normal throughout Sensory Exam: no sensory deficits noted Extrem General: normal to inspection, full ROM, capillary refill normal, no calf tenderness bilaterally and no edema Psych Appearance: grossly normal Mental Status: mental status grossly normal Speech and Movement: speech and movement normal Affect: normal affect Course Vital Signs Vital signs: Vital Signs Temperature 98.1 F 12/22/19 16:56 Pulse 78 12/22/19 16:56 Respiratory Rate 14 12/22/19 16:56 Blood Pressure 121/83 12/22/19 16:56 Pulse Oximetry 100 12/22/19 16:56 Temperature 98.1 F 12/22/19 16:56 Temperature Source Skin 12/22/19 16:56 Pulse 78 12/22/19 16:56 Respiratory Rate 14 12/22/19 16:56 Respiratory Effort 12/22/19 17:01 Blood Pressure 121/83 12/22/19 16:56 Blood Pressure Position Sitting 12/22/19 16:56 Pulse Oximetry 100 12/22/19 16:56 Oxygen Delivery Method Room Air 07/17/20 16:56 Oxygen Flow Rate 0 12/22/19 16:56 Pain Level 6 12/22/19 16:56 Comment headache = 11/1412/22/19 16:56
[2019-12-22] MEDS: Normal Saline 1,000 ML 1000 ML IV (18:31)
[2019-12-22] MEDS: Ondansetron 4 MG/2 ML VIAL IVP (18:37)
[2019-12-22 18:44] LABS: Abs Immature Grans 0.04 k/cumm (0.0-0.09); Absolute Basophil Count 0.01 k/cumm (0.0-0.2); Absolute Lymphocyte Count 3.17 k/cumm (1.2-3.4); Absolute Neutrophil Count 7.13 k/cumm (1.2-6.7); Basophils % 0.1; Eosinophils % 0.3; HCT 42.7 % (36.0-46.0); HGB 14.3 g/dL (12.0-15.5); Immature Grans % 0.3 %; Lymphocytes % 26.6; Mean Corp. HGB Concentration 33.5 g/dL (32.0-36.0); Mean Corpuscular Hemoglobin 31.4 pg (27.0-33.0); Mean Corpuscular Volume 93.8 fL (80-95); Mean Platelet Volume 10.9 fL (8.0-11.0); Monocytes % 12.8; Neutrophils % 59.9; Platelet Count 274 x1000/uL (130-400); RBC 4.55 m/cumm (4.00-5.20); RBC Distribution Width 11.4 % (11.7-14.6); White Blood Cell Count 11.91 k/cumm (4.4-10.8)
[2019-12-22 18:47] LABS: Absolute Eosinophil Count 0.04 k/cumm (0.0-0.7); Absolute Monocyte Count 1.52 k/cumm (0.11-0.7)
[2019-12-22 18:53] LABS: PTT Activated 23.9 sec (21.0-31.4); Prothrombin Time 9.8 sec (9.3-11.0)
[2019-12-22 18:54] LABS: C-Reactive Protein 0.05 mg/dL (0.0-0.3)
[2019-12-22 18:55] LABS: ALT 35 U/L (14-59); AST 14 U/L (15-37); Albumin 3.6 g/dL (3.4-5.0); Alkaline Phosphatase 60 U/L (46-116); Anion Gap 8.3 mmol/L (3-11); BUN 12 mg/dL (7-18); Bilirubin, Total 0.3 mg/dL (0.2-1.0); CO2 27.7 mmol/L (21.0-32.0); CREATININE 0.77 mg/dL (0.55-1.02); Calcium 8.5 mg/dL (8.5-10.1); Chloride 105 mmol/L (98-107); Glucose 84 mg/dL (74-106); Lipase 139 U/L (73-393); Potassium 3.3 mmol/L (3.5-5.1); Sodium 141 mmol/L (136-145); Total Protein 7.2 g/dL (6.4-8.2)
[2019-12-22 19:02] LABS: Diff Comment Agrees w/ Instrument
[2019-12-22 19:03] LABS: RBC Morphology Normal
[2019-12-22 19:30] LABS: ESR 9 mm/hr (0-20)
[2019-12-22 20:12] VITALS: BP 120/70; PULSE 76; RESP 16; TEMP 36.7; O2SAT 100
[2019-12-25 09:24] LABS: Hepatitis B Surface Ag Negative (Negative)
[2019-12-25 09:48] LABS: Hepatitis C Ab w Rflx HCV PCR Negative (Negative)
[2019-12-25 11:07] LABS: HIV-1/2 Ag & Ab Screen Negative (Negative)
[2019-12-26 20:41] LABS: Syphilis Total Ab w/Reflex Nonreactive (Nonreactive)
== END 2019-12-22 20:10 | disposition home or self-care (01) ==
PROVIDERS: Nurse Practitioner Women's Health; Emergency Provider Physician Assistant
DX: R21 Rash and other nonspecific skin eruption (principal); Z11.3 Encounter for screening for infections with a predominantly sexual mode of transmission
CPT/HCPCS: 36415; 80053; 81025; 83690; 85652; 86803; 87340; 87389; 96361; 96374; 99284; 85025; 85610; 85730; 86140; 86780; 99283; J2405

== ENCOUNTER 2020-01-05 18:55 | Emergency (ER) | payer MEDICAID, SELFPAY ==
[2020-01-05 19:04] VITALS: BP 146/94; PULSE 99; RESP 16; TEMP 36.2
--- NOTE | 2020-01-05 20:05 | ED.GENADUL_ITS ---
Discharge Plan Disposition Patient Disposition: HOME Condition: Good Discharge Details Chief Complaint: Recheck Clinical Impression: Rash Primary Care Provider: None,None ED Provider: Chico Cruz Home Meds and New Rx's Prescriptions: New prednisone 20 mg tablet 20 mg PO DAILY Qty: 42 RF: 0 betamethasone dipropionate 0.05 % cream 1 applic TP BID PRNQty: 15 RF: 0 ondansetron HCl [Zofran] 4 mg tablet 4 mg PO Q8H Qty: 12 RF: 0 Continued Nexplanon 68 mg implant 1 implant SBD ONCE RF: 0 epinephrine [EpiPen 2-Fabián] 0.3 MG/0.3 ML auto-injector 0.3 mg IM ONCE Qty: 1 RF: 1 diphenhydramine HCl [Benadryl Allergy] 25 mg Tablet 25 mg PO Q6H PRNRF: 0 Discharge Instructions Instructions: Acute Rash (ED) Additional Instructions: At this time your labs were reassuring, I suspect there to be a mild inflammatory component and dermatitis to your rash. Please start by taking the betamethasone steroid cream, and apply it to each lesion twice daily. Do not spread it in large swaths over your body as it is a high potency cream. After 2 to 3 days of this if you notice no improvement you can transition to the oral steroid medication. As this caused significant discomfort in your stomach last time I would recommend caution, always taking the steroid pill with food on a full stomach, and taking Pepto-Bismol or Maalox 2-3 times per day as needed. Avoid any Tylenol or Motrin. Take the Zofran as needed for nausea. I have contacted our shoe caser and they will place a referral for you again with dermatology and a primary care provider. They should be in contact with you. If you notice any worsening of your symptoms, or any new symptoms such as vomiting, diarrhea, fever, chills, shortness of breath, chest pain, numbness, weakness, or fainting , please return immediately to the emergency department for reevaluation. Please follow up with your primary care provider as soon as possible for reassessment and reevaluation. As always, it was a pleasure participating in your medical care today. Stand Alone Forms: Work Release Discharge Data Discharge Date/Time-TO BE ENTERED AT DEPARTURE: 01/05/20 20:20 Medical Decision Making 24-year-old female with no significant past medical history presents for recheck/evaluation of rash. Patient was initially seen and assessed on 12/[address] Boni Sharma for urticarial-like rash. Patient was started on a 5-day course of prednisone, mupirocin ointment, and Benadryl. She was reassessed by myself the next day stating that she had not seen much change. At that time the rash continued to look urticarial, and did not truly resemble vasculitis or other life-threatening rash. It was recommended that she continue on her treatments. We scheduled to recheck here in the ED 48 hours later, at which point she was having a notable improvement of her rash. Out of an abundance of precaution basic labs were performed, including ESR and CRP, all of which were negative. Including HIV, syphilis, hepatitis, all of which were also negative. The patient continued her 5-day course of prednisone, and had been doing well until just yesterday when she noticed a return of the rash. It is itchy, present on her left shoulder, right hip, left lower extremity. It is much more mild compared to the last time. She denies any oral lesions, or any other systemic symptoms. No changes otherwise in comparison. Unfortunately she has not been able to schedule a follow-up appointment with dermatology or new PCP. She has no other complaints at this time. Of note she did have a notably upset stomach while she was on the prednisone previously, and was prescribed Zofran. Physical exam demonstrates. Small erythematous slightly raised welt-like lesions that are circular but not well-circumscribed. There is a small central aspect that appears to be slightly raised in comparison, no vesicles, crusts, or pustules. Easily blanchable. Negative Nikolsky sign. No large vesicles or bulla. No palpable purpura. No oral lesions. No mucosal lesions. No evidence of severe cellulitis. No evidence of vaccine preventable rash. No current clinical evidence of staph scalded skin syndrome, erythema multiforme, erythema migrans, toxic epidermal necrolysis, Price-Esteban syndrome, Kawasaki-like rash, meningococcemia, pemphigus vulgaris, or necrotizing fasciitis. Symptoms continue to be consistent with a urticarial versus dermatitis-like reaction. Inconsistent with significant vasculitis. At this time we will prescribe a topical steroid betamethasone, as she had notable discomfort with the oral steroid. If this fails will recommend systemic steroid again. I have contacted our supervisor case loading Madeleine Ferguson personally and requested that the patient have close follow-up with dermatology on an outpatient basis even if it requires going to [facility] or [facility]. She also continues new PCP set up. We have placed referral request for these. Patient will be discharged. Discussed red flags which to return. I have extensively reviewed the treatment plan and discharge instructions with the patient. I have addressed all patient concerns at this time. The patient was made aware of what symptoms to monitor for that would warrant a return to the emergency department. Discussed the plan with the patient, they demonstrate verbal understanding and agreement with our assessment and plan at this time. HPI General Date/Time Provider Initiated Documentation: 01/05/20 19:30 . HPI Narrative: 24-year-old female with no significant past medical history presents for recheck/evaluation of rash. Patient was initially seen and assessed on 12/[address] Boni Sharma for urticarial-like rash. Patient was started on a 5-day course of prednisone, mupirocin ointment, and Benadryl. She was reassessed by myself the next day stating that she had not seen much change. At that time the rash continued to look urticarial, and did not truly resemble vasculitis or other life-threatening rash. It was recommended that she continue on her treatments. We scheduled to recheck here in the ED 48 hours later, at which point she was having a notable improvement of her rash. Out of an abundance of precaution basic labs were performed, including ESR and CRP, all of which were negative. Including HIV, syphilis, hepatitis, all of which were also negative. The patient continued her 5-day course of prednisone, and had been doing well until just yesterday when she noticed a return of the rash. It is itchy, present on her left shoulder, right hip, left lower extremity. It is much more mild compared to the last time. She denies any oral lesions, or any other systemic symptoms. No changes otherwise in comparison. Unfortunately she has not been able to schedule a follow-up appointment with dermatology or new PCP. She has no other complaints at this time. Of note she did have a notably upset stomach while she was on the prednisone previously, and was prescribed Zofran. Related Data Home Medications Medication Instructions Recorded Confirmed epinephrine [EpiPen 2-Fabián] 0.3 mg IM ONCE #1 pack 01/07/16 01/05/20 etonogestrel 68 mg subdermal 1 implant SBD ONCE 12/18/19 01/05/20 implant diphenhydramine HCl [Benadryl 25 mg PO Q6H PRN 12/19/19 01/05/20 Allergy] betamethasone dipropionate 1 applic TP BID PRN #15 gm 01/05/20 ondansetron HCl [Zofran] 4 mg PO Q8H #12 tab 01/05/20 prednisone 20 mg PO DAILY #42 tab 01/05/20 Previous Rx's Medication Instructions Recorded betamethasone dipropionate 1 applic TP BID PRN #15 gm 01/05/20 ondansetron HCl [Zofran] 4 mg PO Q8H #12 tab 01/05/20 prednisone 20 mg PO DAILY #42 tab 01/05/20 Allergies Allergy/AdvReac Type Severity Reaction Status Date / Time lavender (Lavandula Allergy Severe Skin Rash Unverified 01/05/20 19:08 angustifolia) melon Allergy Severe tongue Unverified 01/05/20 19:08 swelling and throat closing pineapple Allergy Severe tongue Unverified 01/05/20 19:08 swells and throat closes No Known Drug Allergies Allergy Unverified 01/05/20 19:08 cantolope Allergy Severe throat Uncoded 01/05/20 19:08 closing and tongue swelling General Stated Complaint: Recheck ZINA: 4 Review of Systems All systems reviewed & are unremarkable except as noted in HPI and below PFSH Medical History Presence of subdermal contraceptive implant (Acute) Family History Grandfather Diabetes Grandmother Diabetes Social History Smoking/Tobacco Use Status: Current-Occasional Tobacco Type: cigarettes Alcohol Intake: never Drug use: Never Substance use type: does not use Do you feel safe at home: Yes Do you feel safe in your relationship?: Yes Female Reproductive History Menstrual control method: implanted History History 0 Para Hx # Term Pregnancies Multiple births Hx # Pregnancies Ectopic pregnancies AB induced Hx Number of Living Children AB spontaneous Exam Narrative Exam Narrative: 1.Const: Well-nourished, Well-developed, appearing stated age 2.Eyes: PERRL, no conjunctival injection, and symmetrical lids. 3.ENT: Atraumatic external nose and ears. Moist MM. Neck: Symmetric, trachea midline, No thyromegaly. 4.CVS: +S1/S2, No murmurs or gallops. Peripheral pulses 2+ and equal in all extremities. Brisk capillary refill in all extremities. 5.RESP: Unlabored respiratory effort. Clear to auscultation bilaterally. No wheezes rales or rhonchi 6.GI: Soft, Nontender/Nondistended, No hepatosplenomegaly. No guarding or rebound. 7.MSK: Normocephalic/Atraumatic, Extremities w/o deformity or ttp No cyanosis or clubbing, Normal movement of all extremities 8.Skin: Warm, Dry. Small erythematous slightly raised welt-like lesions that are circular but not well-circumscribed. There is a small central aspect that appears to be slightly raised in comparison, no vesicles, crusts, or pustules. Easily blanchable. Negative Nikolsky sign. No large vesicles or bulla. No palpable purpura. No oral lesions. No mucosal lesions. No evidence of severe cellulitis. No evidence of vaccine preventable rash. 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 Sensation grossly intact, no focal neurologic deficits. 10.Psych: (AAO) x3. Appropriate mood and affect Course Vital Signs Vital signs: Vital Signs Temperature 36.2 C L 01/05/20 19:04 Pulse 99 H 01/05/20 19:04 Respiratory Rate 16 01/05/20 19:04 Blood Pressure 146/94 H 01/05/20 19:04 Temperature 36.2 C L 01/05/20 19:04 Temperature Source Temporal Artery Scan 01/05/20 19:04 Pulse 99 H 01/05/20 19:04 Respiratory Rate 16 01/05/20 19:04 Respiratory Effort Non-Labored 01/05/20 19:09 Blood Pressure 146/94 H 01/05/20 19:04 Blood Pressure Position Sitting 01/05/20 19:04 Oxygen Delivery Method Room Air 01/05/20 19:04 Oxygen Flow Rate 0 01/05/20 19:04 Pain Level 7 01/05/20 19:04
--- NOTE | 2020-01-05 20:17 | NUR.NOTE ---
Nursing Note: REFERAL COPIED TO CM FOR PCP AND DERMATOLOGY 01/05/20
== END 2020-01-05 20:20 | disposition home or self-care (01) ==
PROVIDERS: Emergency Provider Student in an Organized Health Care Education/Training Program
DX: R21 Rash and other nonspecific skin eruption (principal)
CPT/HCPCS: 99283

== ENCOUNTER 2020-02-26 16:49 | Outpatient (REF) | payer MEDICAID, SELFPAY ==
[2020-02-28 15:05] LABS: Chlamydia Result Negative (Negative); GC Result Negative (Negative)
== END 2020-02-26 17:09 ==
LOC: LBN 16:49
PROVIDERS: PCP Nurse Practitioner Adult Health; Visit Provider Nurse Practitioner Adult Health
DX: N89.8 Other specified noninflammatory disorders of vagina (principal); Z11.3 Encounter for screening for infections with a predominantly sexual mode of transmission
CPT/HCPCS: 87491; 87591; 87480; 87510; 87660

== ENCOUNTER 2020-04-05 01:59 | Outpatient (CLI) | payer MEDICAID, SELFPAY ==
[2020-04-08 10:17] LABS: SARS-CoV-2 RNA Not Detected (NotDetected); SARS-CoV-2 RNA Source Nasal/Nares
== END 2020-04-05 02:19 ==
PROVIDERS: PCP Nurse Practitioner Adult Health; Visit Provider Surgery
DX: Z11.59 Encounter for screening for other viral diseases (principal); Z01.818 Encounter for other preprocedural examination
CPT/HCPCS: U0003

== ENCOUNTER 2020-04-10 08:08 | Day surgery (SDC) | payer MEDICAID, SELFPAY ==
[2020-04-10] VITALS (10 sets, daily range): BP systolic 88–122; BP diastolic 43–74; PULSE 53–84; RESP 14–21; TEMP 36.5–36.6; O2SAT 97–100
--- NOTE | 2020-04-10 06:41 | W.PREOPHP ---
Date of service: 04/10/20 Time of Service: 09:21 Assessment and Plan Assessment and plan (1) Pilonidal cyst: Status: Acute Assessment and plan: A\\ 24 year old with a painful pilonidal cyst. No signs of infection at this time. Discussed the procedure with her as well as complications including wound dehisence and recurrence. We also reviewed testing for COVID if we were going to do a heavy sedation or general. Patient has been tested 3 times for COVID due to work. She would prefer not to get tested again. Discussed spinal, with just mild sedation and local. P\\ Pilonidal cyst excision with spinal, local and just a little sedation Risks, benefits, complications were reviewed with the patient. Complications include but are not limited to bleeding, infection, wound dehiscence, recurrence and adverse reaction to the medications. Questions were entertained and answered to her satisfaction and she wished to proceed. No guarantees were given or implied. History of Present Illness Narrative: Ms Adan is a pleasant 24 year old female who is refered for a pilonidal cyst. She tells me that in 2017 she had pain and swelling in the same area and had to be taken to the ER at [place]. There she was noted to be septic. It sounds like they did an Incision and drainage procedure of the pilonidal cyst. She never had it excised after that. Over the last 1 year she has noted some discomfort with sitting. She has had no drainage from the area. She has had no fevers or chills. No one lese in the family has had pilonidal cysts that she is aware of. Patient seen this morning and there have been no changes to he health Review of Systems Constitutional Constitutional: Denies fever(s) and Denies headache(s) ENT Ears, Nose, Mouth, and Throat: Denies headache(s) Cardiovascular Cardiovascular: Denies chest pain, Denies chest pain at rest, Denies irregular heart rhythm, Denies dyspnea and Denies dyspnea on exertion Respiratory Respiratory: Reports cough, Denies dyspnea and Denies dyspnea on exertion Gastrointestinal Gastrointestinal: Reports as per HPI Genitourinary Genitourinary: Denies dysuria, Reports urinary incontinence and Denies urinary urgency Neurologic Neurologic: Denies headache(s) Endocrine Endocrine: Reports system reviewed and no additional complaints, except as documented Hematologic/Lymphatic Hematologic/Lymphatic: Denies easy bruising and Denies lymphadenopathy [facility] Medical History (Updated 04/10/20 @ 08:41 by Criselda Haider) Allergic rhinitis (03/30/13) ACTUALLY - POSTNASAL DRIP NOT RHINITIS. Pt. states she doesnt remember this Asthma (02/01/12) Attention deficit hyperactivity disorder (02/01/12) Great student; self-managed without pharmacotherapy Eating disorder 2014 started; typically vomits after eating (either self-induced or automatic) History of pilonidal cyst x2, one excited in 03/2017; other one recommended removal Nicotine dependence Started 2018 Presence of subdermal contraceptive implant Varicella Surgical History History of incision and drainage pilonidal cyst-2016 [place] Family History Grandfather Diabetes Grandmother Diabetes Hypertension Father Diabetes Paternal Grandfather Diabetes Paternal Grandmother Diabetes Other Anxiety Depression Substance abuse Social History Smoking/Tobacco Use Status: Current-Occasional Tobacco Type: cigarettes Tobacco: How many years used: 1 Quit status: not considering quitting Second Hand Exposure: Yes Smoking risk assessment performed?: Yes Alcohol Intake: current Alcohol Intake frequency: holidays/special occasions only Drug use: Never Substance use type: does not use Details: 04/05/20- alcohol Adopted: No Caregiver/Support person: No Foster care: No Household members: family Housing: apartment Communication Needs: None Do you need help understanding health information?: Never Pets and animals: Yes Pets and animals: cat(s) and dog(s) Sexually active: Yes Do you think of yourself as: bisexual Current gender identity: female What is your relationship status?: never How often do you talk on the phone with friends or family?: three or more times per week How often do you get together with friends or relatives?: decline to answer How often do you attend adventist or latter day services?: decline to answer Panel score (0-1 are the most socially isolated patients): 1 What type of physical activity do you participate in: aerobic and yoga Duration: 30-45 minutes/day Frequency: 5-6 times per week Coty/Bahai: Presybeterian Special coty needs: No Seatbelt use: sometimes Helmet use: No Drive intox or ride w/intox lease purchase truck 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: No Do you feel safe at home: Yes Do you feel safe in your relationship?: Yes Female Reproductive History Menstrual control method: implanted History History 0 Para Hx # Term Pregnancies Multiple births Hx # Pregnancies Ectopic pregnancies AB induced Hx Number of Living Children AB spontaneous Meds Home Medications and Allergies Home Medications Medication Instructions Recorded Confirmed Type etonogestrel 68 mg subdermal 1 implant SBD ONCE 12/18/19 04/10/20 History implant epinephrine 0.3 mg/0.3 mL 0.3 mg IM ONCE #1 pack 01/15/20 04/10/20 Rx injection, auto-injector fluconazole 150 mg tablet 150 mg PO Q3D #2 tab 03/20/20 04/10/20 Rx acetaminophen [Tylenol] 650 mg PO Q6H PRN #30 tab 04/10/20 Rx ibuprofen 600 mg PO Q6H PRN #30 tab 04/10/20 Rx oxycodone 5 mg PO Q6H PRN #14 tab 04/10/20 Rx Allergies Allergy/AdvReac Type Severity Reaction Status Date / Time lavender (Lavandula Allergy Severe Skin Rash Verified 04/10/20 08:38 angustifolia) melon Allergy Severe tongue Verified 04/10/20 08:38 swelling and throat closing pineapple Allergy Severe tongue Verified 04/10/20 08:38 swells and throat closes latex Allergy Verified 04/10/20 09:04 No Known Drug Allergies Allergy Verified 04/10/20 08:38 cantolope Allergy Severe throat Uncoded 04/10/20 08:38 closing and tongue swelling Exam Const General: healthy appearing and comfortable Resp Effort & Inspection: normal respiratory effort Auscultation: clear to auscultation bilaterally Cardio Rate: regular rate Rhythm: regular rhythm Heart Sounds: no click, no gallops and no murmurs
--- NOTE | 2020-04-10 06:43 | PDOC.DSDIS_ITS ---
Discharge Plan Disposition Patient Disposition: HOME Condition: Good Discharge Details Reason For Visit: pilonidal cyst excision Attending Provider: Sweetie Myles Primary Care Provider: Lucero Braun Home Meds and New Rx's Prescriptions: New acetaminophen [Tylenol] 325 mg tablet 650 mg PO Q6H PRNQty: 30 RF: 0 ibuprofen 600 mg tablet 600 mg PO Q6H PRNQty: 30 RF: 0 oxycodone 5 mg tablet 5 mg PO Q6H PRNQty: 14 RF: 0 Continued epinephrine [EpiPen 2-Fabián] 0.3 mg/0.3 mL auto-injector 0.3 mg IM ONCE Qty: 1 RF: 1 Nexplanon 68 mg implant 1 implant SBD ONCE RF: 0 fluconazole [Diflucan] 150 mg tablet 150 mg PO Q3D Qty: 2 RF: 0 Discharge Instructions Additional Instructions: Activity at Home after surgery: 1. Sit as little as possible. Stand or lay on your side or stomach. 2. No driving while in pain or taking pain medications 3. No strenuous activity or heavy lifting for 4 weeks Diet, Nutrition, & wound healin. Avoid alcohol until after you are recovered from your surgery 2. Make sure to eat plenty of lean protein (meat, fish, eggs, cottage cheese, beans) 3. Eat a variety of fruits and vegetables. Eat plenty of high fiber foods to avoid constipation. 4. Drink plenty of liquids to stay hydrated and avoid constipation Pain Medications: 1. Tylenol 650 mg every 6 hours as needed and Ibuprofen 600 mg every 6 hours as needed. May alternate between the 2 medications every 3 hours 2. If a narcotic has been prescribed take as directed only for breakthrough pain For Constipation: 1. Take Milk of Magnesia or MiraLax as needed for constipation Other: 1. You may shower daily. Do not scrub the incisions 2. Do not soak the incisions for 1 week 3. You may alternate ice and heat as needed for pain and swelling Wound Care: 1. Keep the incisions clean and dry Please call our office if you develop: 1. Fevers >101.5 2. Nausea or Vomiting 3. Worsening pain 4. Redness and thick discharge from the wounds If after hours please call the Hospital at and ask to speak to the on-call surgeon Referrals: Sweetie Myles MD [ [facility] STAFF PHYSICIAN] - Activity:: minimal activity Diet:: As Tolerated Discharge Orders Discharge Orders: Discharge Order (Routine); Ordered 04/10/20 Ordered By: Sweetie Myles DS: Diagnosis Discharge Diagnosis (1) Pilonidal cyst: Status: Acute
[2020-04-10] MEDS: Lactated Ringers 1,000 ML 80 ML IV ×2 (09:00→11:25)
--- NOTE | 2020-04-10 09:21 | W.PM.OP ---
Date of service: 04/10/20 Time of Service: 10:37 Operative Note Operative Note DATE OF PROCEDURE: 04/10/20 PRE-OP DIAGNOSIS: Pilonidal cyst POST-OP DIAGNOSIS: same PROCEDURE: Excision of Pilonidal cyst SURGEON: Sweetie Myles NURSE AIDE EVALUATOR: Minal Green ANESTHESIA: GETA (ASA 2/ Josué Dockery CRNA) and spinal ESTIMATED BLOOD LOSS: 25 PATHOLOGY: other (pilonidal cyst) COMPLICATIONS: None Patient was transported to: PACU Patient's condition: stable Indications: 24 year old with a painful pilonidal cyst. No signs of infection at this time. Discussed the procedure with her as well as complications including wound dehisence and recurrence. We also reviewed testing for COVID if we were going to do a heavy sedation or general. Patient has been tested 3 times for COVID due to work. She would prefer not to get tested again. Discussed spinal, with just mild sedation and local. Findings: deep pilonidal cyst with hair in it Procedure Description: After informed consent was obtained, the patient was taken to the operating room. A spinal anesthetic was done by anesthesia. The patient was then asked to lay down in a prone position. Monitors were applied and she was placed under General Anesthesia. A time out was done and her name, , allergies to medications, DVT prohilaxis, antibiotic prophilaxis were all reviewed. Fire risk was assessed. The hair was clipped around the pilonidal opening. The skin was retracted with tape. The skin was then prepped and draped in a standard fashion. Next an elliptical incision was made around the 2 visible openings in the skin just above the buttocks in the midline. The incision measured 5 x 2 cm. Dissection was done with cautery down to the sacrum. A mass of hair was identified within the tissues. Once the area was completely resected it was send to pathology in formalin. The wound was irrigated with sterile saline. Bleeding was stopped with cautery. Flaps were then created with cautery circumferentially to decrease tension on the dermis. VALERIANO was applied into the wound to cut down on seroma and hematoma formation. The wound was then closed in 3 layers. The deep subcutaenous tissue was re-approximated with interrupted 2-0 vicryl. The superficial subcutaneous tissue was re-approximated with interrupted 3-0 vicryl. The dermis was re-approximated with 2-0 vertical mattress sutures. The skin was cleaned and dried and a BERNADINE dressing was applied. Instrument, needle and sponge counts were correct at the end of the case. The patient was allowed to slowely wake yup and was then transfered to the [facility]. She was taken to PACU in stable condition. There were no immediate complications.
--- NOTE | 2020-04-10 09:55 | PILONIDAL_PTH ---
PATIENT: Macie Adan LOC: [facility] U#:[id number] AGE/SX: 24/F ROOM: RE04/10/[address]: Sweetie Myles MD : [id number] BED: DIS: 04/10/2020 SPEC #: [id number] RECD: 04/10/20 12:40 STATUS: KATHLEEN REVanita #: [id number] TERI: 04/10/20 09:[address]: Sweetie Myles DEPT: Surgical Specimen RECD BY: Morelia Hay ENTERED: 04/10/20 12:40 SP TYPE: PILONIDAL OTHR DR: Lucero Braun APRN Tissues: 1 - PILONIDAL CYST/SINUS Procedures: GROSS AND MICRO LEVEL 4 Comments: [id number] ([id number] [facility] [place]
[2020-04-10] MEDS: Lidocaine 2% Multi-Dose 50 ML VIAL (10:02)
[2020-04-10] MEDS: ePHEDrine 50 MG/ML VIAL IVP (11:49)
[2020-04-10] MEDS: oxyCODONE 5 MG TAB PO (13:15)
== END 2020-04-10 14:10 | disposition home or self-care (01) ==
LOC: SUR 08:09
PROVIDERS: PCP Nurse Practitioner Adult Health; Visit Provider Surgery
PROC: (CPT 11770; principal; 2020-04-10 09:15)
DX: L05.91 Pilonidal cyst without abscess (principal); J45.909 Unspecified asthma, uncomplicated; F17.210 Nicotine dependence, cigarettes, uncomplicated
CPT/HCPCS: 11770; 81025; 88305; NC; 88304; J0690; J2405

== ENCOUNTER 2020-05-06 16:12 | Outpatient (REF) | payer MEDICAID, SELFPAY | END 2020-05-06 16:32 | LOC: LBN 16:12 | PROVIDERS: PCP Nurse Practitioner Adult Health; Visit Provider Nurse Practitioner Adult Health | DX: N89.8 Other specified noninflammatory disorders of vagina (principal) | CPT/HCPCS: 87480; 87510; 87660 ==

== ENCOUNTER 2020-10-03 01:58 | Outpatient (CLI) | payer MEDICAID, SELFPAY ==
[2020-10-04 14:03] LABS: COVID-19 RT-PCR UVMMC Result Negative (Negative)
== END 2020-10-03 01:59 | disposition home or self-care (01) ==
LOC: LBO 01:58
PROVIDERS: PCP Nurse Practitioner Adult Health; Visit Provider Nurse Practitioner Adult Health
DX: Z20.822 Contact with and (suspected) exposure to COVID-19 (principal)
CPT/HCPCS: U0003

== ENCOUNTER 2020-12-04 06:28 | Emergency (ER) | payer MEDICAID, SELFPAY ==
--- NOTE | 2020-12-04 06:30 | DI.RAD_ITS ---
Exam(s) XR FOOT LT COMPLETE EXAM: XR FOOT LT COMPLETE CLINICAL HISTORY: pain after trauma. TECHNIQUE: 2D digital imaging was performed. COMPARISON: No exams were available for comparison FINDINGS: There is no evidence of acute fracture or diastasis of the Lisfranc joint. Bone density is normal. No radiopaque foreign body. Moderate size inferior calcaneal spur noted. No osseous lesions nor ero sions evident. IMPRESSION: No fracture evident DATA REPOSITORY: RADIATION DOSE DELIVERED:
[2020-12-04 06:35] VITALS: BP 122/72; PULSE 77; RESP 16; TEMP 36; O2SAT 100
--- NOTE | 2020-12-04 06:44 | W.ED.GENAD ---
Discharge Plan Disposition Patient Disposition: HOME Condition: Improving Discharge Details Clinical Impression: Contusion of foot, left Primary Care Provider: Lucero Braun ED Provider: Boni Sharma Home Meds and New Rx's Prescriptions: Continued epinephrine [EpiPen 2-Fabián] 0.3 mg/0.3 mL auto-injector 0.3 mg IM ONCE Qty: 1 RF: 1 Nexplanon 68 mg implant 1 implant SBD ONCE RF: 0 norgestimate-ethinyl estradiol [Sprintec (28)] 0.25-35 mg-mcg tablet 1 tab PO DAILY Qty: 56 RF: 0 acetaminophen [Tylenol] 325 mg tablet 650 mg PO Q6H PRNQty: 30 RF: 0 ibuprofen 600 mg tablet 600 mg PO Q6H PRNQty: 30 RF: 0 Discharge Instructions Instructions: Foot Contusion (ED) Additional Instructions: Ankle walker as needed up to 10 days time. May use crutches also if needed, as we discussed. May remove boot while at home, at rest. May apply ice to area to reduce pain and swelling. Tylenol and/or ibuprofen as needed for pain. Return to the ER for any acute concerns. Discharge Data Discharge Date/Time-TO BE ENTERED AT DEPARTURE: 12/04/20 07:25 Medical Decision Making This is a 25-year-old female who presents from home stating she accidentally struck her bed frame with her left foot last night. Since that time she had left medial foot pain that is worse with attempts at ambulation. No other injury. She does demonstrate tenderness along the medial portion of her foot. Patient referred for x-ray, no evidence of acute fracture, formal read is pending. Will place patient in ankle walker with crutches if needed. She understands to wean from crutches and ankle/foot immobilization over proxy 1 week's time. She is stable and appropriate for discharge home. HPI General Mode of arrival: ambulatory. Date/Time Provider Initiated Documentation: 12/04/20 06:41. Limitations to Documentation: no limitations. Information obtained by: patient. History of Present Illness 25 year old F presents to the emergency department with the chief complaint of Left medial foot pain, described as moderate, Quality is described as dull and constant, and is localized to the left and lower extremity. Patient reports no radiation. Patient started experiencing this hour(s) and it has been constant. Rest improves symptom(s), Other factors that worsen symptoms (Standing) . Patient notes denies fever/chills and rash. Patient did receive the following treatments prior to arrival, none Related Data Home Medications Medication Instructions Recorded Confirmed etonogestrel 68 mg subdermal 1 implant SBD ONCE 12/18/19 12/04/20 implant epinephrine 0.3 mg/0.3 mL 0.3 mg IM ONCE #1 pack 01/15/20 12/04/20 injection, auto-injector acetaminophen [Tylenol] 650 mg PO Q6H PRN #30 tab 04/10/20 12/04/20 ibuprofen 600 mg PO Q6H PRN #30 tab 04/10/20 12/04/20 norgestimate 0.25 mg-ethinyl 1 tab PO DAILY #56 tab 07/08/20 07/08/20 estradiol 35 mcg tablet Previous Rx's Medication Instructions Recorded epinephrine 0.3 mg/0.3 mL 0.3 mg IM ONCE #1 pack 01/15/20 injection, auto-injector acetaminophen [Tylenol] 650 mg PO Q6H PRN #30 tab 04/10/20 ibuprofen 600 mg PO Q6H PRN #30 tab 04/10/20 norgestimate 0.25 mg-ethinyl 1 tab PO DAILY #56 tab 07/08/20 estradiol 35 mcg tablet Allergies Allergy/AdvReac Type Severity Reaction Status Date / Time lavender (Lavandula Allergy Severe Skin Rash Verified 12/04/20 06:37 angustifolia) melon Allergy Severe tongue Verified 12/04/20 06:37 swelling and throat closing pineapple Allergy Severe tongue Verified 12/04/20 06:37 swells and throat closes latex Allergy Verified 12/04/20 06:37 oxycodone AdvReac Intermediate nausea and Verified 12/04/20 06:37 vomitting tramadol AdvReac Intermediate nausea and Verified 12/04/20 06:37 vomitting cantolope Allergy Severe throat Uncoded 12/04/20 06:37 closing and tongue swelling General Stated Complaint: Orthopedic ZINA: 4 Review of Systems Narrative: 4 systems reviewed and otherwise negative [facility] Medical History Allergic rhinitis (03/30/13) ACTUALLY - POSTNASAL DRIP NOT RHINITIS. Pt. states she doesnt remember this Asthma (02/01/12) Attention deficit hyperactivity disorder (02/01/12) Great student; self-managed without pharmacotherapy Eating disorder 2014 started; typically vomits after eating (either self-induced or automatic) History of pilonidal cyst x2, one excited in 03/2017; other one recommended removal Nicotine dependence Started 2019 Presence of subdermal contraceptive implant (08/12/20) Varicella Surgical History History of excision of pilonidal cyst (~04/10/20) History of incision and drainage pilonidal cyst0-2016 [place] Family History Grandfather Diabetes Grandmother Diabetes Hypertension Father Diabetes Paternal Grandfather Diabetes Paternal Grandmother Diabetes Other Anxiety Depression Substance abuse Social History Smoking/Tobacco Use Status: Current-Occasional Tobacco Type: cigarettes Tobacco: How many years used: 1 Quit status: not considering quitting Second Hand Exposure: Yes Smoking risk assessment performed?: Yes Alcohol Intake: current Alcohol Intake frequency: holidays/special occasions only Drug use: Never Substance use type: does not use Details: 04/05/20- alcohol Adopted: No Caregiver/Support person: No Foster care: No Household members: family Housing: apartment Communication Needs: None Do you need help understanding health information?: Never Pets and animals: Yes Pets and animals: cat(s) and dog(s) Sexually active: Yes Do you think of yourself as: bisexual Current gender identity: female What is your relationship status?: never How often do you talk on the phone with friends or family?: three or more times per week How often do you get together with friends or relatives?: decline to answer How often do you attend orthodox or anabaptist services?: decline to answer Panel score (0-1 are the most socially isolated patients): 1 What type of physical activity do you participate in: aerobic and yoga Duration: 30-45 minutes/day Frequency: 5-6 times per week Iliana/Orthodoxy: Latter-Day Special iliana needs: No Seatbelt use: sometimes Helmet use: No Drive intox or ride w/intox 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 Pleasant, well groomed, interactive. HEAD: Normocephalic, atraumatic EXT: Full ROM, no rash, left medial foot tenderness along the arch. Palpable DP bilaterally. Sensation intact throughout. Neuro: Grossly normal neurologic exam, conversant, interactive. Psych: Speech fluent, thoughts congruent, affect normal Course Vital Signs Vital signs: Vital Signs Temperature 36.0 C L 12/04/20 06:35 Pulse 77 12/04/20 06:35 Respiratory Rate 16 12/04/20 06:35 Blood Pressure 122/72 12/04/20 06:35 Pulse Oximetry 100 12/04/20 06:35 Temperature 36.0 C L 12/04/20 06:35 Temperature Source Skin 12/04/20 06:35 Pulse 77 12/04/20 06:35 Respiratory Rate 16 12/04/20 06:35 Respiratory Effort 12/04/20 06:40 Blood Pressure 122/72 12/04/20 06:35 Blood Pressure Position Sitting 12/04/20 06:35 Pulse Oximetry 100 12/04/20 06:35 Oxygen Delivery Method Room Air 12/04/20 06:35 Oxygen Flow Rate 0 12/04/20 06:35 Pain Level 6 12/04/20 06:40
--- NOTE | 2020-12-04 08:10 | DI.VRAD_ITS ---
PROCEDURE INFORMATION: Exam: XR Left Foot Exam date and time: 12/04/2020 6:42 AM Age: 25 years old Clinical indication: Foot; Left; Patient HX: Pain after trauma TECHNIQUE: Imaging protocol: XR Left foot. Views: 3 or more views. COMPARISON: No relevant prior studies available. FINDINGS: Bones/joints: Normal. Soft tissues: Normal. IMPRESSION: No acute findings. Dictated and Authenticated by: Erick North MD. Ordering:JAILYN Plata MD
== END 2020-12-04 07:25 | disposition home or self-care (01) ==
PROVIDERS: Emergency Provider Emergency Medicine; PCP Nurse Practitioner Adult Health
DX: S90.32XA Contusion of left foot, initial encounter (principal); W22.03XA Walked into furniture, initial encounter
CPT/HCPCS: 29515; 99283; 73630

== ENCOUNTER 2021-05-08 14:16 | Emergency (ER) | payer MEDICAID, SELFPAY ==
[2021-05-08 14:22] VITALS: BP 102/55; PULSE 68; RESP 16; TEMP 36.6; O2SAT 97
--- NOTE | 2021-05-08 14:24 | W.ED.GENAD ---
Discharge Plan Disposition Patient Disposition: HOME Condition: Stable Discharge Details Clinical Impression: Pyelonephritis, Ovarian cyst Primary Care Provider: Lucero Braun ED Provider: Yojana Olivera Home Meds and New Rx's Prescriptions: New sulfamethoxazole-trimethoprim [Bactrim DS] 800-160 mg tablet 1 tab PO BID 4 Days Qty: 8 RF: 0 phenazopyridine [Pyridium] 200 mg tablet 200 mg PO TID PRN (Reason: pain) Qty: 6 RF: 0 ondansetron 4 mg tablet,disintegrating 4 mg PO TID PRN (Reason: nausea and vomiting) Qty: 6 RF: 0 No Action epinephrine [EpiPen 2-Fabián] 0.3 mg/0.3 mL auto-injector 0.3 mg IM ONCE Qty: 1 RF: 1 Nexplanon 68 mg implant 1 implant SBD ONCE RF: 0 sulfamethoxazole-trimethoprim [Bactrim DS] 800-160 mg tablet 1 tab PO BID Qty: 20 RF: 0 fluconazole 150 mg tablet 150 mg PO Q3D Qty: 2 RF: 1 acetaminophen [Tylenol] 325 mg tablet 650 mg PO Q6H PRNQty: 30 RF: 0 ibuprofen 600 mg tablet 600 mg PO Q6H PRNQty: 30 RF: 0 Discharge Instructions Instructions: Ovarian Cyst (ED), Kidney Infection (ED) Additional Instructions: Your symptoms today appear most likely due to a kidney infection which is a bacterial infection which travels from your bladder to your kidneys which is best treated with an antibiotic. Start and finish the bactrim prescription given to you by Dr. Almanza which is for 10 days and then start the Bactrim prescription you were given here for 4 days for a total antibiotic regimen of 14 days. Prescriptions for Bactrim, Zofran and Pyridium have been sent electronically to your pharmacy. Drink plenty of fluids and get plenty of rest. Alternate tylenol and motrin as needed and directed for pain. Follow-up with your primary care doctor in 1 week. Return to the emergency department with any worsening or new concerning symptoms. An order for an outpatient pelvic ultrasound has also been ordered as there was a likely incidental ovarian cyst noted on your CT scan today. Call the number listed on your form to schedule this pelvic ultrasound. Discharge Data Discharge Physician: Yojana Olivera Medical Decision Making 25yo F with a previous history of UTI presents after referred from PCP office for IV fluids for suspected diagnosis of complicated UTI. Patient appears uncomfortable but nontoxic. Vitals are within normal limits. Minimal suprapubic tenderness. No CVA tenderness. External vaginal exam no obvious abnormalities. Speculum exam with white discharge but no other abnormalities including no cervical motion tenderness or adnexal mass or tenderness. Suspect pyelonephritis. Also consider bacterial vaginosis. Vaginal Pap screen and GC chlamydia sent. Presentation does not appear consistent with gonorrhea chlamydia so we will not prophylactically treat. Will obtain screening labs, CT abdomen and pelvis to rule out potential for other acute abdominal abnormality. Will give a dose of Toradol, Pyridium, fluids and reassess. Labs reviewed. Normal white blood cell count. Normal electrolytes. Urinalysis notes findings consistent with UTI with greater than 50 WBCs, few bacteria, small leukocyte esterase. CT abdomen and pelvis notes: IMPRESSION: 1. Right ovarian cyst this could be re-evaluated with an ultrasound examination if clinically warranted. 2. Question cystitis as above. 3. Subcutaneous finding as above -- Within the subcutaneous soft tissues, in the right gluteal region, there are droplets of gas and inflammation. This could be due to a recent injection. A developing small abscess at this level is not totally excluded. Clinical correlation is recommended. This area measured approximately 2.5 x 1.6 cm. Patient reassessed and she feels much better. She feels comfortable and nontoxic. Will treat for pyelonephritis. She was given a dose of Rocephin IM at the PCP office today and a prescription for Bactrim for 10 days. We will add a prescription for 4 days for a total 14-day regimen. The IM injection also would explain the subcutaneous findings on CT. An outpatient pelvic ultrasound was also ordered for the right ovarian cyst which is likely incidentally noted. Patient feels comfortable going home. Prescriptions for an additional 4 days of Bactrim, Zofran and Pyridium sent electronically to her pharmacy. She was advised to call the radiology department to schedule her outpatient pelvic ultrasound. Advised to follow up with the primary care doctor for re-evaluation. Usual and customary return precautions given prior to discharge. Medical Records Medical records reviewed: Yes I reviewed the patient's medical records. Imaging Data Radiologic Study: Radiologist's impression: CT Abdomen And Pelvis With Contrast Exam date and time: 05/08/2021 3:09 PM Age: 25 years old Clinical indication: UTI TECHNIQUE: Imaging protocol: Computed tomography of the abdomen and pelvis with contrast. Contrast material: OMNIPAQUE 350; Contrast volume: 100 ml; Contrast route: INTRAVENOUS (IV); COMPARISON: CT Private^ROUTINE ABDOMEN PELVIS WITH CONTRAST (Adult) 03/07/2018 8:12 PM FINDINGS: Lungs: The visualized lung bases are within normal limits. Heart: The visualized portions of the heart and pericardium are within normal limits. Liver: The liver is within normal limits. Gallbladder and bile ducts: The gallbladder is unremarkable. Pancreas: The pancreas is unremarkable. Spleen: The spleen is within normal limits. Adrenal glands: The adrenal glands are unremarkable. Kidneys and ureters: The kidneys are within normal limits. Stomach and bowel: Unremarkable. No obstruction. No mucosal thickening. Appendix: The appendix is visualized and is within normal limits. Intraperitoneal space: Unremarkable. No free air. No significant fluid collection. Vasculature: Unremarkable. No abdominal aortic aneurysm. Lymph nodes: No enlarged lymph nodes. Urinary bladder: The urinary bladder is not very distended with urine. The wall of the urinary bladder is appears thickened however this could be due to under distention. There is slight inflammation surrounding the urinary bladder. This could be secondary to cystitis. Reproductive: There is a right ovarian cyst measuring up to 4.1 cm. The left ovary is within normal limits. The uterus is within normal limits. There is jewelry at the level of the clitoris. Bones/joints: The visualized bony structures appear within normal limits. Soft tissues: Within the subcutaneous soft tissues, in the right gluteal region, there are droplets of gas and inflammation. This could be due to a recent injection. A developing small abscess at this level is not totally excluded. Clinical correlation is recommended. This area measured approximately 2.5 x 1.6 cm. IMPRESSION: 1. Right ovarian cyst this could be re-evaluated with an ultrasound examination if clinically warranted. 2. Question cystitis as above. 3. Subcutaneous finding as above. Please see discussion above. Lab Data Lab results reviewed: Yes I reviewed the patient's lab results. Labs: 05/08/21 15:30 Vaginal Vaginitis Screen - Pending 05/08/21 14:55 Urine - Reflex from Ua Urine Culture - Pending Laboratory Tests Range/Units 05/08/21 05/08/21 05/08/21 14:54 14:54 14:55 WBC (4.4-10.8) 10^3/uL 9.89 RBC (3.93-5.22) 10^6/uL 4.22 Hgb (11.2-15.7) g/dL 13.3 Hct (36.0-46.0) % 40.2 MCV (80-95) fL 95.3 H MCH (27.0-33.0) pg 31.5 MCHC (32.0-36.0) % 33.1 RDW (11.7-14.6) % 11.3 L Plt Count (130-400) 10^3/uL 251 MPV (8.0-11.0) fL 10.5 Immature Gran % 0.3 Neutrophils % 63.8 Lymphocytes % 21.2 Monocytes % 11.6 Eosinophils % 2.7 Basophils % 0.4 Nucleated RBC % % 0 Absolute Neutrophils (1.2-6.7) 10^3/uL 6.30 Absolute Lymphocytes (1.2-3.4) 10^3/uL 2.10 Absolute Monocytes (0.1-0.8) 10^3/uL 1.15 H Absolute Eosinophils (0.0-0.7) 10^3/uL 0.27 Absolute Basophils (0.0-0.2) 10^3/uL 0.04 Sodium (136-145) mmol/L 139 Potassium (3.5-5.1) mmol/L 4.1 Chloride (98-107) mmol/L 106 Carbon Dioxide (21.0-32.0) mmol/L 26.0 Anion Gap (3-11) mmol/L 7.0 BUN (7-18) mg/dL 7 Creatinine (0.55-1.02) mg/dL 0.7 Estimated GFR/1.73 m2 (mL/min/1.73m2) >= 60.00 Glucose (74-106) mg/dL 87 Calcium (8.5-10.1) mg/dL 8.3 L Total Bilirubin (0.2-1.0) mg/dL 0.4 AST (15-37) U/L 9 L ALT (14-59) U/L 18 Alkaline Phosphatase (46-116) U/L 57 Total Protein (6.4-8.2) g/dL 7.0 Albumin (3.4-5.0) g/dL 3.6 Urine Color (Yellow) Yellow Urine Clarity (Clear) Cloudy Urine pH (5-8) 6.0 Ur Specific [place] (1.005-1.025) >= 1.030 H Urine Protein (Negative) mg/dL 100 H Urine Ketones (Negative) mg/dL Negative Urine Blood (Negative) Moderate H Urine Nitrite (Negative) Negative Urine Bilirubin (Negative) Negative Urine Urobilinogen (Up TO 0.2) EU/dL 0.2 Ur Leukocyte Esterase (Negative) Small H Urine RBC (0-2) HPF 20-50 H Urine WBC (0-5) HPF >50 H Ur Epithelial Cells (Negative) HPF Moderate Urine Crystals (Negative) HPF Negative Urine Bacteria (Negative) HPF Few Urine Mucus (Negative) Negative Ur Culture Indicated? Yes Urine Glucose (Negative) mg/dL Negative HPI General Mode of arrival: ambulatory. Date/Time Provider Initiated Documentation: 05/08/21 14:19. Limitations to Documentation: no limitations. Information obtained by: patient. HPI Narrative: Patient is a 25-year-old female sent by the primary care doctor's office for IV fluids for suspected diagnosis of complicated UTI. Patient states that for the past 5 days she has had urinary frequency, urgency, hesitancy with suprapubic pressure. She also admits to. Pain in my vagina that is worse after urination. She states she has had white and yellow discharge but is sexually active only with 1 partner, her fianc?, and denies any known exposure to STDs. She does admit to vomiting 3 times last night which is mainly been clear bile. She does admit to intermittent low back pain. She denies any fever, genital lesions. She states she has had previous history of UTIs and states this does feel similar. She was given 1 dose of Rocephin at the PCP office today and referred here for further evaluation, consideration for IV fluids and/or potentially imaging. Related Data Home Medications Medication Instructions Recorded Confirmed etonogestrel 68 mg subdermal 1 implant SBD ONCE 12/18/19 05/08/21 implant epinephrine 0.3 mg/0.3 mL 0.3 mg IM ONCE #1 pack 01/15/20 05/08/21 injection, auto-injector acetaminophen [Tylenol] 650 mg PO Q6H PRN #30 tab 04/10/20 05/08/21 ibuprofen 600 mg PO Q6H PRN #30 tab 04/10/20 05/08/21 fluconazole 150 mg tablet 150 mg PO Q3D #2 tab 05/08/21 05/08/21 ondansetron 4 mg PO TID PRN #6 tab 05/08/21 phenazopyridine [Pyridium] 200 mg PO TID PRN #6 tab 05/08/21 sulfamethoxazole 800 1 tab PO BID #20 tab 05/08/21 05/08/21 mg-trimethoprim 160 mg tablet sulfamethoxazole-trimethoprim 1 tab PO BID 4 Days #8 tab 05/08/21 [Bactrim DS] Previous Rx's Medication Instructions Recorded epinephrine 0.3 mg/0.3 mL 0.3 mg IM ONCE #1 pack 01/15/20 injection, auto-injector acetaminophen [Tylenol] 650 mg PO Q6H PRN #30 tab 04/10/20 ibuprofen 600 mg PO Q6H PRN #30 tab 04/10/20 fluconazole 150 mg tablet 150 mg PO Q3D #2 tab 05/08/21 ondansetron 4 mg PO TID PRN #6 tab 05/08/21 phenazopyridine [Pyridium] 200 mg PO TID PRN #6 tab 05/08/21 sulfamethoxazole 800 1 tab PO BID #20 tab 05/08/21 mg-trimethoprim 160 mg tablet sulfamethoxazole-trimethoprim 1 tab PO BID 4 Days #8 tab 05/08/21 [Bactrim DS] Allergies Allergy/AdvReac Type Severity Reaction Status Date / Time lavender (Lavandula Allergy Severe Skin Rash Verified 05/08/21 14:27 angustifolia) melon Allergy Severe tongue Verified 05/08/21 14:27 swelling and throat closing pineapple Allergy Severe tongue Verified 05/08/21 14:27 swells and throat closes latex Allergy Verified 05/08/21 14:27 oxycodone AdvReac Intermediate nausea and Verified 05/08/21 14:27 vomitting tramadol AdvReac Intermediate nausea and Verified 05/08/21 14:27 vomitting cantolope Allergy Severe throat Uncoded 05/08/21 14:27 closing and tongue swelling General ZINA: 4 Review of Systems All systems reviewed & are unremarkable except as noted in HPI and below Constitutional Constitutional: Reports as per HPI, Denies chills and Denies fever(s) Eyes Eyes: Denies blurry vision ENT Ears, Nose, Mouth, and Throat: Denies dizziness, Denies sore throat and Denies throat swelling Cardiovascular Cardiovascular: Denies chest pain and Denies dyspnea Respiratory Respiratory: Denies cough and Denies dyspnea Gastrointestinal Gastrointestinal: Reports abdominal pain, Denies diarrhea and Denies vomiting Genitourinary Genitourinary: Denies hematuria, Reports difficulty voiding, Denies genital lesions, Reports dysuria, Reports urinary hesitancy, Reports urinary urgency and Reports vaginal discharge (yellow brown) Musculoskeletal Musculoskeletal: Reports back pain and Denies numbness Integumentary/Breasts Skin/Breast: Denies lesions and Denies rash Neurologic Neurologic: Denies dizziness, Denies localized weakness and Denies numbness Allergic/Immunologic Allergic/Immunologic: Denies throat swelling PFSH Active Problem List Complicated UTI (urinary tract infection) (Acute) Contusion of foot, left (Acute) Pilonidal cyst (Acute) Eating disorder (Acute) Presence of subdermal contraceptive implant (Acute 08/12/20) Medical History Allergic rhinitis (03/30/13) ACTUALLY - POSTNASAL DRIP NOT RHINITIS. Pt. states she doesnt remember this Asthma (02/01/12) Attention deficit hyperactivity disorder (02/01/12) Great student; self-managed without pharmacotherapy History of pilonidal cyst x2, one excited in 03/2017; other one recommended removal Nicotine dependence Started 2019 Varicella Surgical History History of excision of pilonidal cyst (~04/10/20) History of incision and drainage pilonidal cyst0-2016 [place] Family History Grandfather Diabetes Grandmother Diabetes Hypertension Father Diabetes Paternal Grandfather Diabetes Paternal Grandmother Diabetes Other Anxiety Depression Substance abuse Social History Smoking/Tobacco Use Status: Former Tobacco Use Tobacco: How many years used: 1 Quit status: not considering quitting Second Hand Exposure: Yes Smoking risk assessment performed?: Yes Alcohol Intake: former Drug use: Daily Substance use type: marijuana Details: 04/05/20- alcohol Adopted: No Caregiver/Support person: No Foster care: No Household members: family Housing: apartment Communication Needs: None Do you need help understanding health information?: Never Pets and animals: Yes Pets and animals: cat(s) and dog(s) Sexually active: Yes Do you think of yourself as: bisexual Current gender identity: female What is your relationship status?: never How often do you talk on the phone with friends or family?: three or more times per week How often do you get together with friends or relatives?: decline to answer How often do you attend buddhism or presybeterian services?: decline to answer Panel score (0-1 are the most socially isolated patients): 1 What type of physical activity do you participate in: aerobic and yoga Duration: 30-45 minutes/day Frequency: 5-6 times per week Iliana/Scientology: Druze Special iliana needs: No Seatbelt use: sometimes Helmet use: No Drive intox or ride w/intox deliver driver: No Do you feel safe at home: Yes Do you feel safe in your relationship?: Yes Female Reproductive History Menstrual control method: implanted History History 0 Para Hx # Term Pregnancies Multiple births Hx # Pregnancies Ectopic pregnancies AB induced Hx Number of Living Children AB spontaneous Exam Const General: cooperative, healthy appearing and no acute distress HENMT Head: normal to inspection Face and sinus: normal facial exam Eyes General: appearance normal, both eyes and all related structures EOM: EOM intact bilaterally Neck Neck: normal visual inspection and No submandibular swelling Lymphatic: no lymphadenopathy noted Chest Chest: normal inspection of the chest and no tenderness Resp Effort & Inspection: normal respiratory effort and able to speak in complete sentences Auscultation: clear to auscultation bilaterally Cardio Rate: regular rate Rhythm: regular rhythm GI Inspection: normal to inspection Palpation: soft, not firm, not rigid and tender suprapubicly Auscultation: normal bowel sounds External Female Exam: normal external appearance Speculum Exam - Vagina: abnormal vaginal discharge white and not erythematous Bimanual Exam- Vagina & Uterus: normal bimanual exam and no cervical motion tenderness Bimanual Exam- Adnexa, other: normal adnexae and no masses Back/Spine/Pelvis Back: no CVA tenderness Thoracic/Lumbar Spine: thoracic and lumbar spine normal to inspection Skin General skin exam: no rashes or lesions noted Neuro General: patient alert, patient awake and patient oriented x3 Cognition: normal cognition Speech: speech normal Motor: muscle tone normal throughout Sensory Exam: no sensory deficits noted Extrem General: normal to inspection, full ROM, capillary refill normal, no calf tenderness bilaterally and no edema Psych Appearance: grossly normal Mental Status: mental status grossly normal Speech and Movement: speech and movement normal Affect: normal affect
--- NOTE | 2021-05-08 15:00 | DI.CT_ITS ---
Exam(s) CT ABDOMEN PELVIS W EXAM: CT ABDOMEN PELVIS W CLINICAL HISTORY: lower abd pain, back pain TECHNIQUE: Imaging Protocol: Axial computed tomography images with coronal and sagittal reformatted images were created and reviewed CONTRAST MATERIAL: Intravenous: Omnipaque 350 Contrast volume:100 mL Oral: No FINDINGS: ABDOMEN: Lung Bases: There is a stable subpleural nodule in the right lower lobe. Liver: Normal density. No measurable mass. Portal, Superior Mesenteric, and Splenic Veins: Unremarkable. Gallbladder and Biliary Tract: No radiodense calculus or dilation. Pancreas: Normal density, no abnormal calcifications or inflammatory process. Spleen: Normal. Adrenals: No masses seen. Kidneys: Normal size, contour and axis. There is a 3 mm nonobstructing stone in the midpole of the ri ght kidney. No masses seen. Abdominal Aorta: Abdominal portion non-dilated. Bowel: No obstruction or bowel wall thickening. Appendix is unremarkable. Peritoneal Cavity: No ascites, collection or mesenteric inflammatory response. No free air. Lymph Nodes: Within normal limits. Bones: Within normal limits for the patient's age. Soft Tissues: In the subcutaneous tissues in the right gluteal region there is a 2.5 x 1.6 cm area wi th gas and soft tissue stranding. This may represent a recent injection. A small abscess cannot be entirely excluded. Please correlate clinically. PELVIS: Bladder: There is thickening and hyperenhancement of the urinary bladder. Inflammatory stranding is seen around the bladder. Reproductive Organs: There is a 3.3 x 3.7 cm right adnexal cyst likely ovarian in origin. The reprod uctive organs are otherwise unremarkable. Lymph Nodes: Within normal limits. Bones: Within normal limits for the patient's age. IMPRESSION: 1. Findings suspicious for cystitis. 2. 3.7 cm right ovarian cyst. If clinically warranted, pelvic ultrasound may be obtained. 3. Focal area of gas and inflammation in the right gluteal subcutaneous tissues. This may represent a recent injection. Small abscess cannot be excluded. Please correlate clinically. RADIATION DOSE DELIVERED: 928.77mGy.cm Total DLP DATA REPOSITORY: All CT scans at this facility are submitted to the National Radiology Data Registry (NRDR) Dose Index Registry (DIR) with the [employer] (ACR). RADIATION OPTIMIZATION: All CT scans at this facility use at least one of these dose optimization te chniques: automated exposure control; mA and/or kV adjustment per patient size (includes targeted exa ms where dose is matched to clinical indication); or iterative reconstruction.
[2021-05-08 15:04] LABS: Abs Immature Grans 0.03 10^3/uL (0.0-0.06); Absolute Basophil Count 0.04 10^3/uL (0.0-0.2); Absolute Eosinophil Count 0.27 10^3/uL (0.0-0.7); Absolute Monocyte Count 1.15 10^3/uL (0.1-0.8); Basophils % 0.4; Eosinophils % 2.7; HCT 40.2 % (36.0-46.0); HGB 13.3 g/dL (11.2-15.7); Immature Grans % 0.3; Lymphocytes % 21.2; MCH 31.5 pg (27.0-33.0); MCHC 33.1 % (32.0-36.0); MCV 95.3 fL (80-95); MPV 10.5 fL (8.0-11.0); Monocytes % 11.6; Neutrophils % 63.8; Nucleated RBC 0 %; Platelet Count 251 10^3/uL (130-400); RBC 4.22 10^6/uL (3.93-5.22); RDW 11.3 % (11.7-14.6); RDW-SD 39.6 fL; WBC 9.89 10^3/uL (4.4-10.8)
[2021-05-08 15:12] LABS: Bilirubin Negative (Negative); Blood Moderate (Negative); Clarity Cloudy (Clear); Glucose Negative (Negative); Ketones Negative (Negative); Leukocyte Esterase Small (Negative); Nitrite Negative (Negative); Specific Gravity >= 1.030 (1.005-1.025); Urobilinogen 0.2 EU/dL (Up TO 0.2)
[2021-05-08 15:23] LABS: Bacteria Few HPF (Negative); Epithelial Cells Moderate HPF (Negative); RBC 20-50 HPF (0-2); WBC >50 HPF (0-5)
[2021-05-08 15:24] LABS: C & S Indicated? Yes; Crystals Negative HPF (Negative); Mucus Negative (Negative)
[2021-05-08 15:26] LABS: ALT 18 U/L (14-59); AST 9 U/L (15-37); Albumin 3.6 g/dL (3.4-5.0); Alkaline Phosphatase 57 U/L (46-116); BUN 7 mg/dL (7-18); Bilirubin, Total 0.4 mg/dL (0.2-1.0); CREATININE 0.7 mg/dL (0.55-1.02); Calcium 8.3 mg/dL (8.5-10.1); Chloride 106 mmol/L (98-107); Glucose 87 mg/dL (74-106); Potassium 4.1 mmol/L (3.5-5.1); Sodium 139 mmol/L (136-145)
[2021-05-08] MEDS: Normal Saline 1,000 ML 1000 ML IV (15:42)
[2021-05-08] MEDS: Ketorolac 30 MG/ML VIAL IVP (15:51)
[2021-05-08] MEDS: Phenazopyridine 100 MG TAB PO (15:53)
[2021-05-08] MEDS: Omnipaque 350 MG/ML 100 ML BTL IJ (16:23)
[2021-05-08] MEDS: Normal Saline Flush 10 ML SYR IVP (16:24)
[2021-05-08 16:46] VITALS: BP 123/60; PULSE 59; RESP 14; O2SAT 99
--- NOTE | 2021-05-08 17:10 | DI.VRAD_ITS ---
PROCEDURE INFORMATION: Exam: CT Abdomen And Pelvis With Contrast Exam date and time: 05/08/2021 3:09 PM Age: 25 years old Clinical indication: UTI TECHNIQUE: Imaging protocol: Computed tomography of the abdomen and pelvis with contrast. Contrast material: OMNIPAQUE 350; Contrast volume: 100 ml; Contrast route: INTRAVENOUS (IV); COMPARISON: CT Private^ROUTINE ABDOMEN PELVIS WITH CONTRAST (Adult) 03/07/2018 8:12 PM FINDINGS: Lungs: The visualized lung bases are within normal limits. Heart: The visualized portions of the heart and pericardium are within normal limits. Liver: The liver is within normal limits. Gallbladder and bile ducts: The gallbladder is unremarkable. Pancreas: The pancreas is unremarkable. Spleen: The spleen is within normal limits. Adrenal glands: The adrenal glands are unremarkable. Kidneys and ureters: The kidneys are within normal limits. Stomach and bowel: Unremarkable. No obstruction. No mucosal thickening. Appendix: The appendix is visualized and is within normal limits. Intraperitoneal space: Unremarkable. No free air. No significant fluid collection. Vasculature: Unremarkable. No abdominal aortic aneurysm. Lymph nodes: No enlarged lymph nodes. Urinary bladder: The urinary bladder is not very distended with urine. The wall of the urinary bladder is appears thickened however this could be due to under distention. There is slight inflammation surrounding the urinary bladder. This could be secondary to cystitis. Reproductive: There is a right ovarian cyst measuring up to 4.1 cm. The left ovary is within normal limits. The uterus is within normal limits. There is jewelry at the level of the clitoris. Bones/joints: The visualized bony structures appear within normal limits. Soft tissues: Within the subcutaneous soft tissues, in the right gluteal region, there are droplets of gas and inflammation. This could be due to a recent injection. A developing small abscess at this level is not totally excluded. Clinical correlation is recommended. This area measured approximately 2.5 x 1.6 cm. IMPRESSION: 1. Right ovarian cyst this could be re-evaluated with an ultrasound examination if clinically warranted. 2. Question cystitis as above. 3. Subcutaneous finding as above. Please see discussion above. Dictated and Authenticated by: Zack Donovan MD. Ordering:SARAH Dial MD
--- NOTE | 2021-05-08 17:33 | NUR.NOTE ---
Nursing Note: Request for outpatient Pelvic US for abdominal/back pain/right ovarian cyst to be done in 1 to 2 weeks with follow up in ED faxed to DI. Fabienne Pineda
[2021-05-08 17:44] VITALS: BP 109/73; PULSE 71; RESP 16; TEMP 36.6
[2021-05-12 14:33] LABS: Chlamydia Result Negative (Negative); GC Result Negative (Negative)
--- NOTE | 2021-05-16 10:29 | NUR.NOTE ---
Nursing [id number] FROM DI NOTE STATING PT WAS A NO SHOW FOR US:
== END 2021-05-08 17:47 | disposition home or self-care (01) ==
PROVIDERS: Emergency Provider Physician Assistant; PCP Nurse Practitioner Adult Health
DX: N10 Acute pyelonephritis (principal); N83.201 Unspecified ovarian cyst, right side
CPT/HCPCS: 36415; 80053; 87077; 87491; 87591; 96361; 96374; 99285; 74177; 81003; 81015; 85025; 87086; 87186; 87480; 87510; 87660; 99284; J1885; J3490

== ENCOUNTER 2021-05-27 00:57 | Outpatient (CLI) | payer MEDICAID, SELFPAY ==
--- NOTE | 2021-05-27 | DI.US_ITS ---
Exam(s) US PELVIS TRANSVAGINAL EXAM: US PELVIS TRANSVAGINAL CLINICAL HISTORY: ABD/BACK PAIN, RT OVARIAN CYST. TECHNIQUE: Transabdominal and transvaginal pelvic ultrasound was performed using standard protocol. COMPARISON: CT CT ABDOMEN PELVIS W from 05/08/[address] ABDOMEN PELVIS W from 05/08/2021 FINDINGS: KIDNEYS: Kidneys are symmetric in size. No evidence of renal calculi. No evidence of hydronephrosis. No renal mass or cyst identified. UTERUS: Position: Anteverted. Size: 6.5 long by 2.4 AP by 3.0 transverse cm Endometrium: 0.2 cm. Normal for patient's menstrual status. Myometrium: Unremarkable. Cervix: Unremarkable. OVARIES: Right: 3.5 x 2.6 x 3.4 cm Cyst or mass: Small functional cysts are present. Left: 2 x 2.4 x 2.0 cm Cyst or mass: Small functional cysts are present. DOPPLER: Color: Symmetric and uniform flow to both ovaries. No hyperemia. Duplex: Normal ovarian arterial waveforms visualized. CUL-DE-SAC: Free fluid: None. Other: None. IMPRESSION: 1. Normal sonographic appearance of the kidneys. 2. Normal-appearing uterus with endometrial stripe within normal limits. 3. Unremarkable bilateral ovaries. DATA REPOSITORY:
== END 2021-05-27 01:17 ==
PROVIDERS: PCP Nurse Practitioner Adult Health; Visit Provider Physician Assistant
DX: R10.2 Pelvic and perineal pain (principal); R10.9 Unspecified abdominal pain; N83.291 Other ovarian cyst, right side; N83.292 Other ovarian cyst, left side
CPT/HCPCS: 76830; 76856

== ENCOUNTER 2021-12-16 17:44 | Emergency (ER) | payer MEDICAID, SELFPAY ==
[2021-12-16 17:49] VITALS: BP 125/78; PULSE 71; RESP 18; TEMP 36.8; O2SAT 99
[2021-12-16] MEDS: Normal Saline 1,000 ML 1000 ML IV (18:53)
[2021-12-16 18:58] LABS: Abs Immature Grans 0.03 10^3/uL (0.0-0.06); Absolute Basophil Count 0.01 10^3/uL (0.0-0.2); Absolute Monocyte Count 0.89 10^3/uL (0.1-0.8); Absolute Neutrophil Count 4.98 10^3/uL (1.2-6.7); Basophils % 0.1; HGB 12.9 g/dL (11.2-15.7); Immature Grans % 0.4; Lymphocytes % 13.2; MCHC 34.9 % (32.0-36.0); MCV 89 fL (80-95); MPV 10.5 fL (8.0-11.0); Monocytes % 13.1; Neutrophils % 73.2; Platelet Count 230 10^3/uL (130-400); RBC 4.16 10^6/uL (3.93-5.22); RDW 11.2 % (11.7-14.6); RDW-SD 36.2 fL; WBC 6.81 10^3/uL (4.4-10.8)
[2021-12-16 19:15] LABS: ALT 24 U/L (14-59); AST 14 U/L (15-37); Albumin 3.4 g/dL (3.4-5.0); Alkaline Phosphatase 41 U/L (46-116); Anion Gap 10.6 mmol/L (3-11); BUN 7 mg/dL (7-18); Bilirubin, Total 0.3 mg/dL (0.2-1.0); CO2 24.4 mmol/L (21.0-32.0); CREATININE 0.6 mg/dL (0.55-1.02); Calcium 8.8 mg/dL (8.5-10.1); Chloride 104 mmol/L (98-107); Glucose 88 mg/dL (74-106); Lipase 33 U/L (73-393); Magnesium 1.8 mg/dL (1.8-2.4); Potassium 3.3 mmol/L (3.5-5.1); Sodium 139 mmol/L (136-145); Total Protein 6.8 g/dL (6.4-8.2)
[2021-12-16 19:57] LABS: COVID-19 PCR Negative (Negative); Influenza A PCR Negative (Negative); Influenza B PCR Negative (Negative); RSV PCR Negative (Negative)
[2021-12-16 19:58] LABS: Source Nasopharynx
[2021-12-16] MEDS: ACETAMINOPHEN 1,000 MG/100 ML BTL 400 MG IVPB (20:51)
[2021-12-16] MEDS: Metoclopramide 10 MG/2 ML VIAL IVP (20:51)
[2021-12-16] MEDS: Normal Saline 500 ML IV (21:00)
--- NOTE | 2021-12-16 21:11 | ED.GENADUL_ITS ---
Discharge Plan Disposition Patient Disposition: AGAINST MEDICAL ADVICE Condition: Stable Discharge Details Clinical Impression: Fever and chills, Nausea/vomiting in Primary Care Provider: Lucero Braun ED Provider: Steven hCaney Home Meds and New Rx's Prescriptions: No Action epinephrine [EpiPen 2-Fabián] 0.3 mg/0.3 mL auto-injector 0.3 mg IM ONCE Qty: 1 1RF Rx Instructions: inject into mid upper thigh for swelling of lips/tongue/throat or work of breathing associated with food allergy reaction prenat.vits,amy,[id number] Tablet 1 tab PO DAILY ondansetron 8 mg tablet,disintegrating 8 mg PO Q8H PRN (Reason: nausea and vomiting) Qty: 30 6RF metoclopramide HCl [Reglan] 10 mg tablet 10 mg PO TID PRN (Reason: nausea and vomiting) Qty: 60 5RF pantoprazole [Protonix] 40 mg tablet,delayed release (DR/EC) 40 mg PO DAILY Qty: 90 4RF Discharge Instructions Instructions: Fever in Adults (ED), Acute Nausea and Vomiting (ED) Additional Instructions: At this time you have chosen to leave AGAINST MEDICAL ADVICE. We are still pending a urine sample and urinalysis given that you have fever chills, nausea vomiting. Given that you are this could complicate if you have a urinary tract infection. Your labs are otherwise reassuring except for a slightly low potassium which since you have chosen to leave you should increase your potassium intake. Please follow-up with women's wellness for reassessment or return to the emergency department for a recheck if you have significant worsening of your symptoms Referrals: [facility] [Provider Group] (Please call the office for arrangement of follow-up appointment) Discharge Data Discharge Date/Time-TO BE ENTERED AT DEPARTURE: 12/16/21 21:35 Medical Decision Making Patient presenting emergency department for chief complaint of fever chills and nausea vomiting. Physical exam is unremarkable except for some mild left lower quadrant discomfort. Suspect some viral etiology. Patient is approximately 8 weeks . She states she has been on multiple antinausea meds and not helping with the nausea and vomiting. We will plan on checking labs and urinalysis. Pending results we will give IV fluids but patient denies any benefit to antiemetics so we will continue to reassess. Review of CBC is overall unremarkable with slightly rare lymphocytes and high monocytes, CMP shows slightly low potassium at 3.3, AST at 14 and alk phos of 41 again otherwise unremarkable, patient is negative for COVID and influenza Patient admitted complete IV fluids but never gave urine specimen. Patient concerned due to her report of fever chills and nausea with some vomiting. Asked patient to give urine sample and she stated no improvement of symptoms and seemed frustrated that no one had checked on her and I informed her that we are still pending urinalysis so decision medical had not been made. Ordered patient IV Tylenol and Reglan to see if this helps. Patient completed these IV medications but did not give us urinalysis. She stated that she did not want to complete the medical work-up and would prefer to leave. Given that patient is otherwise stable with no worrisome findings on labs I do feel this is reasonable but informed patient that untreated urinary tract infection absolutely could affect and that she should follow-up with women's wellness or primary care soon as possible for further reassessment. Informed patient to return to the emergency department for new or worsening symptoms. This documentation was generated using [employer] dictation system, please disregard any oddities of phrase or misspellings. HPI General Mode of arrival: ambulatory . Date/Time Provider Initiated Documentation: 12/16/21 18:05 . Limitations to Documentation: no limitations . Information obtained by: patient and RN notes reviewed . History of Present Illness 26 year old F presents to the emergency department with the chief complaint of Nausea vomiting fever chills, described as mild and moderate, with intensity rated at 3. Quality is described as aching, and is localized to the abdomen. Patient reports no radiation. Patient started experiencing this day(s) (2) and it has been constant. No relieving factors improve symptom(s), Patient notes no other symptoms.. Patient did receive the following treatments prior to arrival, other (Multiple prescribed antiemetics) Related Data Home Medications Medication Instructions Recorded Confirmed epinephrine 0.3 mg/0.3 mL 0.3 mg (0.3 mL) IM ONCE ##1 01/15/20 12/16/21 injection, auto-injector (EpiPen 2-Fabián) prenat.vits,amy,[id number] 1 tab PO DAILY 09/29/21 12/16/21 metoclopramide HCl 10 mg tablet 10 mg PO TID PRN nausea and 12/03/21 12/16/21 (Reglan) vomiting #60 tabs ondansetron 8 mg disintegrating 8 mg PO Q8H PRN nausea and 12/03/21 12/16/21 tablet vomiting #30 tabs pantoprazole 40 mg tablet,delayed 40 mg PO DAILY #90 tabs 12/03/21 12/16/21 release (Protonix) Previous Rx's Medication Instructions Recorded epinephrine 0.3 mg/0.3 mL 0.3 mg (0.3 mL) IM ONCE ##1 01/15/20 injection, auto-injector (EpiPen 2-Fabián) metoclopramide HCl 10 mg tablet 10 mg PO TID PRN nausea and 12/03/21 (Reglan) vomiting #60 tabs ondansetron 8 mg disintegrating 8 mg PO Q8H PRN nausea and 12/03/21 tablet vomiting #30 tabs pantoprazole 40 mg tablet,delayed 40 mg PO DAILY #90 tabs 12/03/21 release (Protonix) Allergies Allergy/AdvReac Type Severity Reaction Status Date / Time lavender (Lavandula Allergy Severe Skin Rash Verified 12/16/21 17:54 angustifolia) melon Allergy Severe tongue Verified 12/16/21 17:54 swelling and throat closing pineapple Allergy Severe tongue Verified 12/16/21 17:54 swells and throat closes latex Allergy Verified 12/16/21 17:54 oxycodone AdvReac Intermediate nausea and Verified 12/16/21 17:54 vomitting tramadol AdvReac Intermediate nausea and Verified 12/16/21 17:54 vomitting cantolope Allergy Severe throat Uncoded 12/16/21 17:54 closing and tongue swelling General Stated Complaint: GenMedical ZINA: 3 Review of Systems Constitutional Constitutional: Reports chills, Reports fever(s) (Subjective) and Reports poor appetite Cardiovascular Cardiovascular: Denies chest pain, Denies syncope and Denies dyspnea Respiratory Respiratory: Denies cough and Denies dyspnea Gastrointestinal Gastrointestinal: Reports as per HPI, Reports abdominal pain (While vomiting), Denies melena, Denies change in bowel habits, Denies constipation, Denies diarrhea, Reports nausea and Reports vomiting Genitourinary Genitourinary: Denies abnormal vaginal bleeding, Denies hematuria, Denies difficulty voiding, Denies dysuria, Denies pelvic pain, Denies urinary incontinence, Denies urinary hesitancy, Denies urinary urgency and Denies vaginal discharge Musculoskeletal Musculoskeletal: Denies back pain Integumentary/Breasts Skin/Breast: Denies rash Neurologic Neurologic: Denies syncope Psychiatric Psychiatric: Reports anxiety PFSH All Active Problems (Updated 12/16/21 @ 21:14 by Steven Chaney NP) Fever and chills (Acute) Nausea/vomiting in (Acute) (Acute) Smoker (Acute) Contusion of foot, left (Acute) Pilonidal cyst (Acute) Eating disorder (Acute) 2014 started; typically vomits after eating (either self-induced or automatic) Medical History Allergic rhinitis (03/30/13) ACTUALLY - POSTNASAL DRIP NOT RHINITIS. Pt. states she doesnt remember this Asthma (02/01/12) Attention deficit hyperactivity disorder (02/01/12) Great student; self-managed without pharmacotherapy Complicated UTI (urinary tract infection) History of pilonidal cyst x2, one excited in 03/2017; other one recommended removal Nicotine dependence Started 2019 Ovarian cyst Pyelonephritis Varicella Surgical History History of excision of pilonidal cyst (~04/10/20) History of incision and drainage pilonidal cyst0-2016 [facility] Family History Grandfather Diabetes Grandmother Diabetes Hypertension Father Diabetes Paternal Grandfather Diabetes Paternal Grandmother Diabetes Other Anxiety Depression Substance abuse Social History Smoking/Tobacco Use Status: Former Tobacco Use Tobacco: How many years used: 1 Quit status: not considering quitting Second Hand Exposure: Yes Smoking risk assessment performed?: Yes Alcohol Intake: former Drug use: Daily Substance use type: marijuana Details: 04/05/20- alcohol Adopted: No Caregiver/Support person: No Foster care: No Household members: family Housing: apartment Communication Needs: None Do you need help understanding health information?: Never Pets and animals: Yes Pets and animals: cat(s) and dog(s) Sexually active: Yes Do you think of yourself as: bisexual Current gender identity: female What is your relationship status?: never How often do you talk on the phone with friends or family?: three or more times per week How often do you get together with friends or relatives?: decline to answer How often do you attend yazdanism or mosque services?: decline to answer Panel score (0-1 are the most socially isolated patients): 1 What type of physical activity do you participate in: aerobic and yoga Duration: 30-45 minutes/day Frequency: 5-6 times per week Iliana/Mormon: Lutheran Special iliana needs: No Seatbelt use: sometimes Helmet use: No Drive intox or ride w/intox 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 Do you feel safe at home: Yes Do you feel safe in your relationship?: Yes Female Reproductive History Menstrual control method: none History History 0 Para Hx # Term Pregnancies Multiple births Hx # Pregnancies Ectopic pregnancies AB induced Hx Number of Living Children AB spontaneous Exam Const General: cooperative Orientation: alert, awake and oriented x3 Resp Effort & Inspection: normal respiratory effort and able to speak in complete sentences Auscultation: clear to auscultation bilaterally Cardio Rate: regular rate Rhythm: regular rhythm Heart Sounds: S1 normal and S2 normal GI Inspection: normal to inspection Palpation: soft, no hepatosplenomegaly, not firm, no guarding, no masses, no pulsatile masses, not rigid, no splenomegaly and tender in the LLQ Auscultation: normal bowel sounds Back/Spine/Pelvis Back: no CVA tenderness Neuro General: patient alert, patient awake, patient oriented x3, gait normal and moves all extremities Course Vital Signs Vital signs: Vital Signs Temperature 36.8 C 12/16/21 17:49 Pulse 71 12/16/21 17:49 Respiratory Rate 18 12/16/21 17:49 Blood Pressure 125/78 12/16/21 17:49 Pulse Oximetry 99 12/16/21 17:49 Temperature 36.8 C 12/16/21 17:49 Temperature Source Tympanic 12/16/21 17:49 Pulse 71 12/16/21 17:49 Respiratory Rate 18 12/16/21 17:49 Respiratory Effort Non-Labored 12/16/21 18:53 Respiratory Depth Normal 12/16/21 18:53 Respiratory Pattern Normal 12/16/21 18:53 Blood Pressure 125/78 12/16/21 17:49 Blood Pressure Position Sitting 12/16/21 17:49 Pulse Oximetry 99 12/16/21 17:49 Oxygen Delivery Method Room Air 12/16/21 17:49 Oxygen Flow Rate 0 12/16/21 17:49 Pain Level 0 12/16/21 17:49 Lab/Test Results Lab/Test Results: Laboratory Tests Range/Units 12/16/21 12/16/21 12/16/21 18:49 18:49 19:11 WBC (4.4-10.8) 10^3/uL 6.81 RBC (3.93-5.22) 10^6/uL 4.16 Hgb (11.2-15.7) g/dL 12.9 Hct (36.0-46.0) % 37.0 MCV (80-95) fL 89 MCH (27.0-33.0) pg 31.0 MCHC (32.0-36.0) % 34.9 RDW (11.7-14.6) % 11.2 L Plt Count (130-400) 10^3/uL 230 MPV (8.0-11.0) fL 10.5 Immature Gran % 0.4 Neutrophils % 73.2 Lymphocytes % 13.2 Monocytes % 13.1 Eosinophils % 0.0 Basophils % 0.1 Nucleated RBC % (0.0-0.3) % 0.0 Absolute Neutrophils (1.2-6.7) 10^3/uL 4.98 Absolute Lymphocytes (1.2-3.4) 10^3/uL 0.90 L Absolute Monocytes (0.1-0.8) 10^3/uL 0.89 H Absolute Eosinophils (0.0-0.7) 10^3/uL 0.00 Absolute Basophils (0.0-0.2) 10^3/uL 0.01 Sodium (136-145) mmol/L 139 Potassium (3.5-5.1) mmol/L 3.3 L Chloride (98-107) mmol/L 104 Carbon Dioxide (21.0-32.0) mmol/L 24.4 Anion Gap (3-11) mmol/L 10.6 BUN (7-18) mg/dL 7 Creatinine (0.55-1.02) mg/dL 0.6 Estimated GFR/1.73 m2 (mL/min/1.73m2) >= 60.00 Glucose (74-106) mg/dL 88 Calcium (8.5-10.1) mg/dL 8.8 Magnesium (1.8-2.4) mg/dL 1.8 Total Bilirubin (0.2-1.0) mg/dL 0.3 AST (15-37) U/L 14 L ALT (14-59) U/L 24 Alkaline Phosphatase (46-116) U/L 41 L Total Protein (6.4-8.2) g/dL 6.8 Albumin (3.4-5.0) g/dL 3.4 Lipase (73-393) U/L 33 COVID-19 Source Nasopharynx SARS-CoV-2 (PCR) (Negative) Negative Influenza Type A (PCR) (Negative) Negative Influenza Type B (PCR) (Negative) Negative RSV (PCR) (Negative) Negative
[2021-12-16] MEDS: Potassium Chloride 20 MEQ TABCR PO (21:17)
--- NOTE | 2021-12-16 21:18 | NUR.NOTE ---
Nursing Note: Patient requested to leave. WOOD INSPECTOR Clif spoke with patient about benefits v. risks since all her testing is not complete. Patient insists on leaving and is of sound mind to make decisions. Patient signed AMA form, IV removed, pt walked self out of ED.
[2021-12-16 21:32] VITALS: BP 120/76; PULSE 74; RESP 17; TEMP 36.6; O2SAT 99
== END 2021-12-16 21:35 | disposition left against medical advice (07) ==
PROVIDERS: Emergency Provider Nurse Practitioner Family; PCP Nurse Practitioner Adult Health
DX: O21.9 Vomiting of pregnancy, unspecified (principal); O26.891 Other specified pregnancy related conditions, first trimester; R50.9 Fever, unspecified; R10.32 Left lower quadrant pain; O99.511 Diseases of the respiratory system complicating pregnancy, first trimester; J45.909 Unspecified asthma, uncomplicated; Z20.822 Contact with and (suspected) exposure to COVID-19; Z53.29 Procedure and treatment not carried out because of patient's decision for other reasons; Z87.891 Personal history of nicotine dependence; Z3A.08 8 weeks gestation of pregnancy
CPT/HCPCS: 36415; 80053; 83690; 87637; 96361; 96374; 96375; 99284; 83735; 85025; J0131; J2765

== ENCOUNTER 2021-12-31 04:00 | Outpatient (CLI) | payer MEDICAID, SELFPAY ==
[2021-12-31 15:27] LABS: Kit/Specimen SENT
[2021-12-31 15:56] LABS: Abs Immature Grans 0.05 10^3/uL (0.0-0.06); Absolute Basophil Count 0.03 10^3/uL (0.0-0.2); Absolute Eosinophil Count 0.02 10^3/uL (0.0-0.7); Absolute Lymphocyte Count 1.58 10^3/uL (1.2-3.4); Absolute Monocyte Count 0.79 10^3/uL (0.1-0.8); Absolute Neutrophil Count 7.58 10^3/uL (1.2-6.7); Basophils % 0.3; Eosinophils % 0.2; HCT 37.9 % (36.0-46.0); HGB 12.8 g/dL (11.2-15.7); Immature Grans % 0.5; Lymphocytes % 15.7; MCH 30.7 pg (27.0-33.0); MCHC 33.8 % (32.0-36.0); MCV 91 fL (80-95); MPV 10.4 fL (8.0-11.0); Monocytes % 7.9; Neutrophils % 75.4; Platelet Count 253 10^3/uL (130-400); RBC 4.17 10^6/uL (3.93-5.22); RDW 11.2 % (11.7-14.6); RDW-SD 37.4 fL; WBC 10.05 10^3/uL (4.4-10.8)
[2021-12-31 16:48] LABS: TSH (W/Ref FT4) 0.87 uIU/mL (0.36-3.74)
[2022-01-01 10:33] LABS: HIV-1/2 Ag & Ab Screen Negative (Negative); Hepatitis B Surface Ag Negative (Negative)
[2022-01-01 10:58] LABS: Varicella IgG Antibody Positive (See Note)
[2022-01-01 11:04] LABS: Rubella IgG Ab (UVM) Negative (See Note)
[2022-01-01 11:33] LABS: Hepatitis C Ab w Rflx HCV PCR Negative (Negative)
[2022-01-02 10:36] LABS: Syphilis IgG w/Reflex Nonreactive (Nonreactive)
[2022-01-08 12:03] LABS: Result Summary NEGATIVE; Specimen WB Whole Blood
== END 2021-12-31 04:01 | disposition home or self-care (01) ==
LOC: LBO 04:00
PROVIDERS: PCP Nurse Practitioner Adult Health; Visit Provider Advanced Practice Midwife
DX: Z34.91 Encounter for supervision of normal pregnancy, unspecified, first trimester (principal); Z36.89 Encounter for other specified antenatal screening; Z3A.11 11 weeks gestation of pregnancy
CPT/HCPCS: 86787; 86803; 86850; 86900; 86901; 87340; 87389; 81220; 84443; 85025; 86762; 86780

== ENCOUNTER 2021-12-31 17:23 | Outpatient (REF) | payer MEDICAID, SELFPAY ==
[2021-12-31 19:31] LABS: *AMPHETAMINES SCREEN URINE Negative (Negative); *BARBITURATES SCREEN URINE Negative (Negative); *BENZODIAZEPINES SCREEN URINE Negative (Negative); Cannabinoids THC Positive (Negative); Cocaine Screen,Urine Negative (Negative); METHADONE URINE SCREEN Negative (Negative); OPIATES URINE SCREEN Negative (Negative)
[2021-12-31 19:38] LABS: Tricyclic Antidepressants Negative (Negative)
[2022-01-02 14:57] LABS: Chlamydia Result Negative (Negative); GC Result Negative (Negative)
[2022-01-07 10:29] LABS: Buprenorphine Negative ng/mL (Cutoff: 5.0); Norbuprenorphine Negative ng/mL (Cutoff: 2.5)
== END 2021-12-31 17:24 | disposition home or self-care (01) ==
LOC: LBN 17:23
PROVIDERS: PCP Nurse Practitioner Adult Health; Visit Provider Advanced Practice Midwife
DX: Z34.91 Encounter for supervision of normal pregnancy, unspecified, first trimester (principal); Z3A.10 10 weeks gestation of pregnancy
CPT/HCPCS: 80307; 87491; 87591; 87086; 87480; 87510; 87660

== ENCOUNTER → 2022-02-25 01:27 | Outpatient (CLI) | payer MEDICAID, SELFPAY ==
--- NOTE | 2022-02-25 07:30 | DI.US_ITS ---
Exam(s) US OB 2-3 TRIMESTER EXAM: US OB 2-3 TRIMESTER CLINICAL HISTORY: anatomy,Z34.92. TECHNIQUE: Transabdominal obstetrical ultrasound was performed. COMPARISON: US US PELVIS TRANSVAGINAL from 05/27/2021 FINDINGS: There is a single viable intrauterine gestation with cardiac activity identified-195 bpm. Amniotic fluid: There is a normal amount of amniotic fluid. Placental location: The placenta is posterior grade 1,with no evidence of placenta previa.Distance be tween the tip of placenta and internal cervical os is 4.7 cm on today's study. ANATOMY: A 3 vessel umbilical cord is seen. A four-chamber cardiac view was obtained. Right and left ventricular outflow tracts were imaged. There are no obvious abnormalities of the spinal column evident. There is no obvious abnormal ity of the anterior abdominal wall. stomach and urinary bladder are identified and there is no evidence of hydronephrosis. No abnormalities of the upper lip region are identified. No evidence of choroid plexus cysts i n the brain. Dating parameters place this at approximately 18 weeks and 6 days gestational age. BPD measures 18 weeks and 6 days HC measures 19 weeks and 0 days AC measures 18 weeks and 5 days FL measures 19 weeks and 0 days Estimated weight is 262 gm-0 pounds 9 ounces Fetus is at the 46th percentile on the Hadlock scale. IMPRESSION:: Single viable intrauterine gestation which is approximately 18 weeks and 6 days gestati onal age, implying an ABDOULAYE of July 23, 2022. There are no obvious anomalies evident on today's study. The placenta is posterior with no evidence of placenta previa. There is a normal amount of amniotic fluid. DATA REPOSITORY:
== END ==
PROVIDERS: PCP Nurse Practitioner Adult Health; Visit Provider Advanced Practice Midwife
DX: Z34.92 Encounter for supervision of normal pregnancy, unspecified, second trimester (principal)
CPT/HCPCS: 76805

== ENCOUNTER 2022-04-24 01:25 | Outpatient (CLI) | payer MEDICAID, SELFPAY ==
[2022-04-24 10:17] LABS: HCT 36.5 % (36.0-46.0); HGB 12.6 g/dL (11.2-15.7); MCH 31.6 pg (27.0-33.0); MCHC 34.5 % (32.0-36.0); MCV 92 fL (80-95); MPV 11.1 fL (8.0-11.0); Platelet Count 225 10^3/uL (130-400); RBC 3.99 10^6/uL (3.93-5.22); RDW 11.2 % (11.7-14.6); RDW-SD 37.7 fL; WBC 10.01 10^3/uL (4.4-10.8)
[2022-04-24 10:36] LABS: Glucose,1 Hr (Glucola) 102 mg/dL (80-140)
== END 2022-04-24 01:26 | disposition home or self-care (01) ==
LOC: LBO 01:25
PROVIDERS: PCP Nurse Practitioner Adult Health; Visit Provider Advanced Practice Midwife
DX: Z34.92 Encounter for supervision of normal pregnancy, unspecified, second trimester (principal)
CPT/HCPCS: 36415; 82950; 85027

== ENCOUNTER 2022-06-05 12:05 | Outpatient (REF) | payer MEDICAID, SELFPAY ==
[2022-06-05 13:16] LABS: *AMPHETAMINES SCREEN URINE Negative (Negative); *BARBITURATES SCREEN URINE Negative (Negative); *BENZODIAZEPINES SCREEN URINE Negative (Negative); Cannabinoids THC Positive (Negative); Cocaine Screen,Urine Negative (Negative); METHADONE URINE SCREEN Negative (Negative); OPIATES URINE SCREEN Negative (Negative)
[2022-06-05 13:17] LABS: Tricyclic Antidepressants Negative (Negative)
[2022-06-12 15:51] LABS: Buprenorphine Negative ng/mL (Cutoff: 5.0); Norbuprenorphine Negative ng/mL (Cutoff: 2.5)
== END 2022-06-05 12:06 | disposition home or self-care (01) ==
LOC: LBN 12:05
PROVIDERS: PCP Nurse Practitioner Adult Health; Visit Provider Advanced Practice Midwife
DX: Z34.93 Encounter for supervision of normal pregnancy, unspecified, third trimester (principal)
CPT/HCPCS: 80307; 80348

== ENCOUNTER 2022-06-25 16:26 | Outpatient (REF) | payer MEDICAID, SELFPAY | END 2022-06-25 16:27 | disposition home or self-care (01) | LOC: LBN 16:26 | PROVIDERS: PCP Nurse Practitioner Adult Health; Visit Provider Advanced Practice Midwife | DX: Z34.93 Encounter for supervision of normal pregnancy, unspecified, third trimester (principal) | CPT/HCPCS: 87081 ==

== ENCOUNTER 2022-07-21 04:16 | Inpatient (IN) | payer MEDICAID, SELFPAY ==
[2022-07-21] VITALS (22 sets, daily range): BP systolic 98–170; BP diastolic 50–85; PULSE 63–117; RESP 16–18; TEMP 36.3–37.1; O2SAT 94
--- NOTE | 2022-07-21 | DI.US_ITS ---
Exam(s) US RENAL EXAM: US RENAL CLINICAL HISTORY: left side CVAT TECHNIQUE: Ultrasound of both kidneys performed using standard protocol. COMPARISON: CT CT ABDOMEN PELVIS W from 05/08/2021 FINDINGS: RIGHT KIDNEY: Measures 10 cm in length. No cysts evident. Normal cortical thickness and corticomedullary differenti ation .No solid masses No intrarenal calculi nor hydronephrosis. LEFT KIDNEY: Measures 10.5 cm in length. No cysts evident. Normal cortical thickness and corticomedullary differe ntiaion. No solids masses. No intrarenal calculi nor hydonephrosis. URINARY BLADDER: Prevoid volume is 86 cc Postvoid volume is not performed cc No evidence of bladder mass nor diverticuli. Ureterovesical jets: Both not visualized IMPRESSION: 1. No significant ultrasound findings in the kidneys. 2. No hydronephrosis evident. DATA REPOSITORY:
--- NOTE | 2022-07-21 04:18 | W.PM.OBHPL1 ---
Date of service: 07/21/22 Time of Service: 04:19 Assessment and Plan Assessment and plan (1) Normal labor: Status: Acute Assessment and plan: 1. will admit and begin GBS prophylaxis, CBC, type and screen, COVID screen 2. Pain management plan is Nitrous at this time, is hoping to avoid epidural 3. Expect NVD. OB-HPI Labor/Delivery History of Present Illness Reason for Visit: uterine contractions at term Chief Complaint: Uterine Contractions. ABDOULAYE Calculator Estimated Delivery Date Method Current WG Current Estimate 07/23/22 Ultrasound #1 39w 5d Other Estimates 07/29/22 LMP (Certain) 38w 6d Comments: Macie Patrick and Michael present for labor check. Reports contractions began at 7pm on 07/20/22 and have progressed to every 3-4 minutes lasting a minute. She denies LOF or vaginal bleeding. Baby has been active. complicated by GBS + status and social concerns. She is rubella non immune and has history of chronic upper back pain.She admits to Marijuana use and has completed a Plan of Safe Care in . Her pain management plan is to go as natural as she can but is surprised by her discomfort and is interested in Nitrous for pain relief. DAX History of Present Expected Delivery Route/Plan - CNM FOB/fiance - Michael Dopp (1st child) BB no circ-[place] Rubella Non-Immune, offer MMR GBS POSITIVE, planning PCN prophylaxis Michael for labor support, might have a family friend tool. Specific Issues/Plan 1. Severe nausea & vomiting @ 6 wks, Zofran ODT, reglan and protonix Rx'ed. 1a. Hx eating disorder & chronic nausea tx'ed w/anti-emetics 2. Smoker. declines cessation assistance- quit by 2nd trimester. 3. Reports blood in umbilicus when cleaning it with q-tip, no evidence of infection or blood at initial visit 4. UDS is THC+ at initial OB; peer counselor pt, repeat @ 28 wks is THC+, POSC reviewed with Heidi 5. COVID vaccinated but not boosted. 6. Desires cfDNA and CF screening, declines SMA. CF neg, cfDNA low prob x5 male 7. PT referral done for chronic low back and hip pain- attending PT visits 8. Rubella Non-Immune, offer MMR 9. Constipation - Takes fiber occasionally. Assessment: History Reviewed & Current Informed Consent Informed Consent: Risk,Benefits,Alternatives Discussed (admission and treatment of GBS with antibiotics, nitrous use reviewed) Review of Systems All systems reviewed & are unremarkable except as noted in HPI and below (uterine contractions) PFSH All Active Problems (Updated 07/21/22 @ 04:40 by Cathy Granda CNM) Normal labor (Acute) Group B Streptococcus carrier, +RV culture, currently (Acute) Unspecified problems related to employment (Acute) Housing instability, currently housed, at risk for homelessness (Acute) Need for financial support (Acute) Other specified counseling (Acute) Rubella non-immune status, antepartum (Acute) Hip pain, bilateral (Acute) Chronic upper back pain (Acute) Low back pain (Acute) (Acute) Medical History Allergic rhinitis (03/30/13) ACTUALLY - POSTNASAL DRIP NOT RHINITIS. Pt. states she doesnt remember this Asthma (02/01/12) Attention deficit hyperactivity disorder (02/01/12) Great student; self-managed without pharmacotherapy Complicated UTI (urinary tract infection) Contusion of foot, left Eating disorder 2013 started; typically vomits after eating (either self-induced or automatic) Fever and chills History of pilonidal cyst x2, one excited in 03/2017; other one recommended removal Nicotine dependence Started 2019 Ovarian cyst Pilonidal cyst Pyelonephritis Smoker Varicella Surgical History History of excision of pilonidal cyst (~04/10/20) History of incision and drainage pilonidal cyst0-2016 [place] Family History Grandfather No problems noted. Grandmother Hypertension Father Diabetes H[place]hoe kidney Paternal Grandfather Diabetes Alcohol use disorder Asthma Stroke Parkinsons disease Paternal Grandmother Diabetes Asthma Depression Self Anxiety Paternal Aunt Depression Sister Depression Other Breast cancer Substance abuse Social History Smoking/Tobacco Use Status: Former Tobacco Use Tobacco: How many years used: 1 Quit status: not considering quitting Second Hand Exposure: Yes Smoking risk assessment performed?: Yes Alcohol Intake: former Drug use: Daily Substance use type: marijuana Details: 04/05/20- alcohol Adopted: No Caregiver/Support person: No Foster care: No Household members: family Housing: apartment Communication Needs: None Do you need help understanding health information?: Never Pets and animals: Yes Pets and animals: cat(s) and dog(s) Sexually active: Yes Do you think of yourself as: bisexual Current gender identity: female What is your relationship status?: never How often do you talk on the phone with friends or family?: three or more times per week How often do you get together with friends or relatives?: decline to answer How often do you attend jehovah's witness or methodist services?: decline to answer Panel score (0-1 are the most socially isolated patients): 1 What type of physical activity do you participate in: aerobic and yoga Duration: 30-45 minutes/day Frequency: 5-6 times per week Iliana/Church: [employer] Special iliana needs: No Seatbelt use: sometimes Helmet use: No Drive intox or ride w/intox bull driver: No Do you feel safe at home: Yes Do you feel safe in your relationship?: Yes Female Reproductive History Menstrual control method: none History History 1 Para 0 Hx # Term Pregnancies 0 Multiple births 0 Hx # Pregnancies 0 Ectopic pregnancies 0 AB induced 0 Hx Number of Living Children 0 AB spontaneous 0 Meds Allergies and Home Medications Allergies Allergy/AdvReac Type Severity Reaction Status Date / Time lavender (Lavandula Allergy Severe Skin Rash Verified 07/21/22 04:31 angustifolia) melon Allergy Severe tongue Verified 07/21/22 04:31 swelling and throat closing pineapple Allergy Severe tongue Verified 07/21/22 04:31 swells and throat closes latex Allergy Verified 07/21/22 04:31 oxycodone AdvReac Intermediate nausea and Verified 07/21/22 04:31 vomitting tramadol AdvReac Intermediate nausea and Verified 07/21/22 04:31 vomitting cantolope Allergy Severe throat Uncoded 07/21/22 04:31 closing and tongue swelling Home Medications Medication Instructions Recorded Confirmed Type epinephrine 0.3 mg/0.3 mL 0.3 mg (0.3 mL) IM ONCE ##1 01/15/20 07/21/22 Rx injection, auto-injector (EpiPen 2-Fabián) prenat.vits,amy,[id number] 1 tab PO DAILY 09/29/21 07/21/22 History pantoprazole 40 mg tablet,delayed 40 mg PO DAILY #90 tabs 12/03/21 07/21/22 Rx release (Protonix) nystatin 100,000 unit/gram topical 1 applic topical BID #30 grams 06/09/22 07/21/22 Rx cream Exam Physical Exam Vital signs: Pulse BP Pulse Ox 68 118/77 94 07/21/22 04:02 07/21/22 04:02 07/21/22 04:02 Vital Signs Reviewed: Yes Constitutional Constitutional: moderate distress and obese (BMI 31, 15 lb weight gain in ) Detailed Labor and Delivery Exam Dilation: 3 Effacement (%): 100 station: -1 Position: KERRI Cervix position: mid Consistency: soft Ramsey Score: Cervical Points Exam 0 1 2 3 Dilation Closed 1-2cm 3-4 cm 5-6cm Effacement 0-30% 40-50% 60-70% 80% Consistency Firm Medium Soft Station -3 -2 -1,0 +1,+2 Position Posterior Mid Anterior RAMSEY Score(Cervical Ripeness Score): 10 Amniotic Membrane Status: Intact Fetus A Heart Rate Baseline: 135 Monitor Accelerations: 15 X 15 Monitor Decelerations: None Variability: Moderate (6-25 BPM) Categories: Category I Est. Weight: 7 lb HEENT Exam HEENT Exam: Normal Neck Exam Neck Exam: Normal (visual exam) Chest/Brest/Axilla Exam Chest Exam: Not Done Breast Exam Breast Exam: Not Done Respiratory Exam Respiratory Exam: Normal (has septal ring in nose) Cardiovascular Exam Cardiovascular Exam: Normal Abdominal Exam Abdominal Exam: Normal (gravid uterus, size equals dates, fundus non tender) Rectal Exam Rectal Exam: Not Done Exam Exam: Normal Extremities Exam Extremities Exam: Normal Back/Spine/Pelvis Exam Back Exam: Not Done Pelvis Adequate: Yes Skin Exam Skin Exam: Normal Neurological Exam Neurological Exam: Normal Psychiatric Exam Psychiatric Exam: Normal (anxiety about labor but coping well) Results Results Group Beta Strep: Positive Blood Type: O+ Rubella Status: Nonimmune Varicella Immunity: Immune Lab Results: Hep B&C neg, HIV neg, Syphilis neg, GC CT neg, CF neg, cfDNA low risk male gender, 1 hour glucose 102, GBS + Risk Assessment Risk for Shoulder Dystocia Historical/Initial OB: NEGATIVE FOR: Pelvic Abnormality, Pre- BMI>30, Previous Shoulder Dystocia or Previous Macrosomia Date/Initial: 12/31/21 Delivery Plan @ 40 wks: NVD DAX Risk for Pre-Eclampsia Date Initiated/Initials: 12/31/21 Yes, if one or more: NEGATIVE FOR: Hx Pre-E/Gest HTN, Chronic HTN, Multiple Gestation, Pre-gestational DM, Renal Disease, Systemic Lupus or APA Syndrome Yes, if 2 or more: POSITIVE FOR: Nulliparity; NEGATIVE FOR: Age>= 35 yrs, >10yr btwn pregnancies, BMI>30, ethinicty, Mother/Sister w/ Pre-E or Previous IUGR Risk for Post- Hemorrhage Initial: NEGATIVE FOR: Multiple Gestation, Previous PPH, Known Clotting Deficiency, Grand Multiparity or Anticoagulation At Risk?: No Date/Initials: 12/31/21: Risks Reviewed Risks Reviewed Upon Admission: Yes
[2022-07-21 04:50] LABS: HCT 37.3 % (36.0-46.0); HGB 12.8 g/dL (11.2-15.7); MCHC 34.3 % (32.0-36.0); MCV 90 fL (80-95); MPV 11.7 fL (8.0-11.0); Platelet Count 248 10^3/uL (130-400); RBC 4.13 10^6/uL (3.93-5.22); RDW 12.3 % (11.7-14.6); RDW-SD 40.2 fL; WBC 15.35 10^3/uL (4.4-10.8)
[2022-07-21] MEDS: Penicillin G POT. 5,000,000 UNITS in Normal Saline 100 ML 200 UNITS IVPB (04:51)
[2022-07-21] MEDS: Lactated Ringers 1,000 ML 125 ML IV ×2 (04:53→08:35)
[2022-07-21 06:14] LABS: Source Nasal/Nares
[2022-07-21 06:46] LABS: COVID-19 PCR Negative (Negative)
--- NOTE | 2022-07-21 08:27 | W.PM.OBNL1 ---
Date of service: 07/21/22 Time of Service: 08:28 Informed Consent Informed Consent: Risk,Benefits,Alternatives Discussed (admission and treatment of GBS with antibiotics, nitrous use reviewed) Pelvic Exam Dilation: 7 Effacement (%): 100 station: -1 Cervix Position: mid Contractions Monitor Mode: Palpation Contraction Frequency(min): 2-3 Contraction Duration(sec): 60-70 Intensity: Moderate/Strong Fetus A Monitor: Doppler Assessment and Plan Assessment and plan (1) Normal labor: Status: Acute Assessment and plan: 1. Nitrous not working as well, she will try Nubain 5 mg IV and if no relief will give 5 more mg, I reviewed importance of not givng too close to due to increased risk for resp dep. and if urge to push increases we wll need to discontinue IVPB Nubain. 2. Expect NVD (2) Group B Streptococcus carrier, +RV culture, currently : Status: Acute Assessment and plan: 1. Due for second dose PCN soon Objective Abnormal lab results 07/21/22 Range/Units 04:41 WBC 15.35 H (4.4-10.8) 10^3/uL MPV 11.7 H (8.0-11.0) fL Temp Pulse Resp BP Pulse Ox 97.3 F L 71 18 138/82 94 07/21/22 08:13 07/21/22 08:13 07/21/22 08:13 07/21/22 08:13 07/21/22 04:02 Laboratory Results WBC 15.35 10^3/uL (4.4-10.8) H 07/21/22 04:41 RBC 4.13 10^6/uL (3.93-5.22) 07/21/22 04:41 Hgb 12.8 g/dL (11.2-15.7) 07/21/22 04:41 Hct 37.3 % (36.0-46.0) 07/21/22 04:41 MCV 90 fL (80-95) 07/21/22 04:41 MCH 31.0 pg (27.0-33.0) 07/21/22 04:41 MCHC 34.3 % (32.0-36.0) 07/21/22 04:41 RDW 12.3 % (11.7-14.6) 07/21/22 04:41 Plt Count 248 10^3/uL (130-400) 07/21/22 04:41 MPV 11.7 fL (8.0-11.0) H 07/21/22 04:41 COVID-19 Source Nasal/Nares 07/21/22 04:21 SARS-CoV-2 (PCR) Negative (Negative) 07/21/22 04:21 Patient ABO/Rh O Positive 07/21/22 04:41 Antibody Screen NEGATIVE 07/21/22 04:41 Subjective Interval history since last seen: Celina is doing well with Nitrous and her breathing. Has had increased pressure to push, 7cm, reviewed blowing out to allow contraction to pass. Will try to get second dose of PCN hung soon. KH Results Hemoglobin/Hematocrit: Hgb 12.8 g/dL (11.2-15.7) 07/21/22 04:41 Hct 37.3 % (36.0-46.0) 07/21/22 04:41 Abnormal Lab Findings: Abnormal Labs 07/21/22 04:41 WBC 15.35 H MPV 11.7 H
[2022-07-21] MEDS: Penicillin G POT. 3,000,000 UNITS in Normal Saline 50 ML 100 UNITS IVPB (08:54)
--- NOTE | 2022-07-21 09:31 | W.PM.OBNL1 ---
Date of service: 07/21/22 Time of Service: 09:31 Informed Consent Informed Consent: Risk,Benefits,Alternatives Discussed (admission and treatment of GBS with antibiotics, nitrous use reviewed) Pelvic Exam Dilation: 7 Effacement (%): 100 station: -1 Comments: AROM at 0924 clear fluid Contractions Monitor Mode: External Contraction Frequency(min): 2-3 Contraction Duration(sec): 60 Intensity: Moderate/Strong Fetus A Monitor: External (US) Heart Rate Baseline: 120 Presentation: Cephalic Variability: Moderate (6-25 BPM) Categories: Category I Amniotic Membrane Status: Ruptured Amniotic Fluid: Clear Date of Membrane Rupture: 07/21/22 Time of Membrane Rupture: 09:24 Assessment and Plan Assessment and plan (1) Normal labor: Status: Acute Assessment and plan: 1. Nubain was not given due to rapid change in cervix, patient continues to use Nitrous oxide with some relief 2. Will be prepared for potential PPH due to rapid progression. Plan to use IV pitocin and have misoprostol and methergine available if needed. 3. Expect NVD. KH (2) Group B Streptococcus carrier, +RV culture, currently : Status: Acute Assessment and plan: 1. Has received 2 doses of IV PCN prior to AROM. Objective Abnormal lab results 07/21/22 Range/Units 04:41 WBC 15.35 H (4.4-10.8) 10^3/uL MPV 11.7 H (8.0-11.0) fL Temp Pulse Resp BP Pulse Ox 97.3 F L 81 18 129/85 94 07/21/22 08:13 07/21/22 08:41 07/21/22 08:13 07/21/22 08:41 07/21/22 04:02 Laboratory Results WBC 15.35 10^3/uL (4.4-10.8) H 07/21/22 04:41 RBC 4.13 10^6/uL (3.93-5.22) 07/21/22 04:41 Hgb 12.8 g/dL (11.2-15.7) 07/21/22 04:41 Hct 37.3 % (36.0-46.0) 07/21/22 04:41 MCV 90 fL (80-95) 07/21/22 04:41 MCH 31.0 pg (27.0-33.0) 07/21/22 04:41 MCHC 34.3 % (32.0-36.0) 07/21/22 04:41 RDW 12.3 % (11.7-14.6) 07/21/22 04:41 Plt Count 248 10^3/uL (130-400) 07/21/22 04:41 MPV 11.7 fL (8.0-11.0) H 07/21/22 04:41 COVID-19 Source Nasal/Nares 07/21/22 04:21 SARS-CoV-2 (PCR) Negative (Negative) 07/21/22 04:21 Patient ABO/Rh O Positive 07/21/22 04:41 Antibody Screen NEGATIVE 07/21/22 04:41 Vital Signs Reviewed: Yes Subjective Interval history since last seen: patient had agreed to AROM as she wants to progress and be done with her labor. KH Results Hemoglobin/Hematocrit: Hgb 12.8 g/dL (11.2-15.7) 07/21/22 04:41 Hct 37.3 % (36.0-46.0) 07/21/22 04:41 Abnormal Lab Findings: Abnormal Labs 07/21/22 04:41 WBC 15.35 H MPV 11.7 H
[2022-07-21 09:57] LABS: *AMPHETAMINES SCREEN URINE Negative (Negative); *BARBITURATES SCREEN URINE Negative (Negative); *BENZODIAZEPINES SCREEN URINE Negative (Negative); Cannabinoids THC Positive (Negative); Cocaine Screen,Urine Negative (Negative); METHADONE URINE SCREEN Negative (Negative); OPIATES URINE SCREEN Negative (Negative)
[2022-07-21 10:03] LABS: Tricyclic Antidepressants Negative (Negative)
[2022-07-21] MEDS: Lidocaine 1% Multi-Dose 20 ML VIAL IJ (10:40)
[2022-07-21] MEDS: Oxytocin 10 UNITS/ML VIAL IM (10:55)
[2022-07-21] MEDS: Ibuprofen 600 MG TAB PO ×2 (11:40→17:59)
[2022-07-21] MEDS: Acetaminophen 325 MG TAB 650 MG PO ×2 (11:40→17:58)
[2022-07-21] MEDS: Hamamelis Leaf/Glycerin 100 EACH BOX PR (11:41)
[2022-07-21] MEDS: Dibucaine 1% 28 GM TUBE TP (11:41)
--- NOTE | 2022-07-21 11:54 | OBVDS_ITS ---
Date of service: 07/21/22 Time of Service: 11:54 OB Labor/ Delivery Information Baby A Delivery Delivery Method: Spontaneaous Presentation: Cephalic Cephalic Position: Vertex Vertex Position: Left Occipital Anterior Cord Description-Baby A: 3 Vessels and Clamped/Cut Amniotic Fluid: Clear Estimated Blood Loss: 200 Delivery Outcome: Liveborn Infant Transferred: Remains with Mother Note: Macie Adan presented with complaint of labor at 0415 this morning She was 3cm/100%/-1 with bulging membranes at that time. FHR tracing was CAT I throughout first stage of labor. Treatment for GBS was started quickly and 2 doses were infused by the time she began to feel strong urge to push. At 0956 second stage huddle was held, FHR tracing CAT I and some increased risk for PPH due to fairly quick labor noted. During second stage, at approximately 1037 FHR was noted to be in 60's with patient pushing well and caput is noted. At 1040 there was more caput with patient being encouraged to push more effectively and FHR was in the 60-70 range. At that time OB physician was called to attend and pediatrics was notified to attend. Dr Landa responded to room at 1044 and helped to assess patient progress and FHR. Decision to continue without oper ative vaginal delivery was made based on patient's progress and occured at 1047 and delivery of a life male over intact perineum was achieved at 1048. Baby was placed on mother's abdomen where cord was double clamped and cut and baby was then transferred to pre-heated radiant warmer for further resuscitative efforts, see record. Placenta delivered spontaneously at 1055 and 10 units of pitocin was given IM as IV access was lost during last moments of pushing. Baby's weight was 6lb 12.5 oz, 3 vessel cord noted, scores 3/6/7 per pediatric team. Cord segment was set aside for gases but Pediatric provider does not believe it is needed. The couple are considering taking the placenta home with them. The placenta was inspected and marginal cord insertion was noted but otherwise intact. The baby was at breast nursing by 20 minutes of life and positive family bonding was noted. Macie is thinking non hormonal contraception. Expect normal PP course. Providers Doctor: Leslie Landa Nurse Mdm Sr: Cathy Granda Inspector Optical Instrument: Chata Maloney Nurse: Heidi Navarro RN Nurse: Manpreet Lucas Labor/Delivery Information Number of Babies in Womb: 1 Steroids Given: None Reason Steroids Not Administered: N/A Group Beta Strep: Positive Antibiotics Administered: Yes Number of Doses of Antibiotics: 2 Rubella Status: Nonimmune Blood Type: O+ Varicella Immunity: Immune Medication in Delivery: Nitrous Maternal Complications: None Shoulder Dystocia: No Stages of Labor Onset of Labor Date: 07/21/22 Onset of Labor Time: 04:00 Complete Dilatation Date: 07/21/22 Complete Dilatation Time: 09:56 Labor - Stage 1 Duration: 5 hours and 56 minutes ROM Baby A: 07/21/22 ROM Baby A: 09:28 ROM Total Time- Baby A: [id number] Infant Delivery Date-Baby A: 07/21/22 Delivery Time-Baby A: 10:48 Labor Stage 2 Duration: 52 minutes Placenta Delivery Date-Baby A: 07/21/22 Placenta Delivery Time-Baby A: 10:55 Labor-Stage 3 Duration: 7 minutes Total Length of Labor-Baby A: 6 hours and 48 minutes Placenta Cultured: Yes Placenta Status: Delivered Baby A Gender: Male Gestational Status: Term (39-41.6 wks) Gestational Age in Weeks/Days: 39 Weeks and 5 Days weight: 6 lb 12.467 oz Length-Baby A: 19 in Head Circumference-Baby A: 13.5 in Score-1 Minute Interval(Baby A) Heart Rate-1 minute: 100 BPM or Greater Respiratory Effort- 1 minute: No Spontaneous Effort Muscle Tone-1 minute: Limp Reflex Response-1 minute: No Response Color-1 minute: Bluish Hands or Feet Total Score-1 minute: 3 Score-5 Minute Interval(Baby A) Heart Rate- 5 minute: 100 BPM or Greater Respiratory Effort-5 minute: Slow Respiration/Weak Cry Muscle Tone-5 minute: Minimal Flexion/Extension Reflex Response-5 minute: Minimal Response Color-5 minute: Bluish Hands or Feet Total Score- 5 minute: 6
--- NOTE | 2022-07-21 13:18 | W.PM.OBPNV1 ---
Date of service: 07/21/22 Time of Service: 13:19 Assessment and Plan Assessment and plan (1) Left flank pain: Status: Acute Assessment and plan: 1. Pain noted after delivery, reports it started 2 weeks ago but was not noted while in labor but now feels pain is back. No relief from tylenol and ibuprofen. CVAT + will get renal US and straight cath urine culture and give Dilaudid 2mg PO prn every 4 hours if needed. Subjective Subjective Interval history: Patient began to report left sided rib pain after delivery. She was medicated with tylenol and ibuprofen without relief. On further assessment she is + for CVAT on left side without fever. Denies urine burning or UTI symptoms. Will medicate with Dilaudid as she has used that in the past without difficulty and get renal US as well as urine culture by straight catheter to assess for UTI. Exam Physical Exam Vital signs: Temp Pulse Resp BP Pulse Ox 97.3 F L 80 18 107/64 94 07/21/22 08:13 07/21/22 13:14 07/21/22 08:13 07/21/22 13:14 07/21/22 04:02 Vital Signs Reviewed: Yes Back/Spine/Pelvis Exam Back Exam: Abnormal (left sided CVAT) Results Hemoglobin/Hematocrit: Hgb 12.8 g/dL (11.2-15.7) 07/21/22 04:41 Hct 37.3 % (36.0-46.0) 07/21/22 04:41 Abnormal Lab Findings: Abnormal Labs 07/21/22 07/21/22 04:41 08:40 WBC 15.35 H MPV 11.7 H Ur THC Screen Positive A
[2022-07-21] MEDS: HYDROmorphone 2 MG TAB PO (20:04)
[2022-07-22] MEDS: HYDROmorphone 2 MG TAB PO (06:36)
[2022-07-22 07:45] VITALS: BP 104/60; PULSE 60; RESP 16; TEMP 36.8; O2SAT 99
--- NOTE | 2022-07-22 15:49 | DSE_ITS ---
Date of service: 07/22/22 Time of Service: 15:49 DS: Diagnosis Discharge Diagnosis (1) Left flank pain: Status: Acute Asessment and Plan: US done due to flank pain. Normal kidney US. Pain is mild and worsens with movement. Ibuprofen and rest recommended. call if no improvement. hot pack or bath recommended for comfort. (2) Term of male : Status: Acute Asessment and Plan: Caring for baby independently. Pain is managed well with oral analgesics. Voiding without difficulty. well. A - stable mother and baby , Post day 1, P - Discharge to home today. Routine post instructions. [facility] 2 and 6 weeks. Discharge Plan Disposition Patient Disposition: Home Condition: Good Discharge Details Reason For Visit: Uterine Contractions at Term Admit Date/Time: 07/21/22 04:16 Admit Provider: Cathy Granda Attending Provider: Cathy Granda Primary Care Provider: Lucero Braun Home Meds and New Rx's Prescriptions: Continued epinephrine [EpiPen 2-Fabián] 0.3 mg/0.3 mL auto-injector 0.3 mg IM ONCE Qty: 1 1RF Rx Instructions: inject into mid upper thigh for swelling of lips/tongue/throat or work of breathing associated with food allergy reaction prenat.vits,amy,bkw-oxuc-xedli Tablet 1 tab PO DAILY pantoprazole [Protonix] 40 mg tablet,delayed release (DR/EC) 40 mg PO DAILY Qty: 90 4RF Discharge Instructions Stand Alone Forms: Instructions, BC Post Vaginal Deliver Activity:: Activity as Tolerated Equipment/Supplies:: No Equipment Needed Diet:: As Tolerated Discharge Orders Discharge Orders: Discharge Order (Routine); Ordered 07/22/22 Ordered By: Cathy Jacob OB:DS Summary Summary Vaginal Delivery Method: Spontaneaous Episiotomy Description: None Laceration Description: None Laceration Extension: N/A Contraception Discussed Contraception Discussed: Yes Contraceptive Plan: Undecided, [place] Infant Gender-Baby A: Male weight: 6 lb 12.467 oz Status at Discharge Functional status at discharge: independent ambulation Overall status at discharge: patient is back to baseline Mental Status: mental status grossly normal Speech and Movement: speech and movement normal Mood: congruent mood Affect: normal affect Exam Physical Exam Vital signs: Temp Pulse Resp BP Pulse Ox 98.2 F 60 16 104/60 99 07/22/22 07:45 07/22/22 07:45 07/22/22 07:45 07/22/22 07:45 07/22/22 07:45 Respiratory Exam Respiratory Exam: Normal Cardiovascular Exam Cardiovascular Exam: Normal Fundal Exam Fundus: Below Umbilicus and Firm Extremities Exam Extremity Exam: Normal Skin Exam Skin Exam: Abnormal (petechii due to pushing) Psychiatric Exam Psychiatric Exam: Normal PFSH All Active Problems (Updated 07/22/22 @ 15:50 by Cathy Jacob CNM) Term of male (Acute) Left flank pain (Acute) Normal labor (Acute) Group B Streptococcus carrier, +RV culture, currently (Acute) Unspecified problems related to employment (Acute) Housing instability, currently housed, at risk for homelessness (Acute) Need for financial support (Acute) Other specified counseling (Acute) Rubella non-immune status, antepartum (Acute) Hip pain, bilateral (Acute) Chronic upper back pain (Acute) Low back pain (Acute) (Acute) Medical History Allergic rhinitis (03/30/13) ACTUALLY - POSTNASAL DRIP NOT RHINITIS. Pt. states she doesnt remember this Asthma (02/01/12) Attention deficit hyperactivity disorder (02/01/12) Great student; self-managed without pharmacotherapy Complicated UTI (urinary tract infection) Contusion of foot, left Eating disorder 2014 started; typically vomits after eating (either self-induced or automatic) Fever and chills History of pilonidal cyst x2, one excited in 03/2017; other one recommended removal Nicotine dependence Started 2019 Ovarian cyst Pilonidal cyst Pyelonephritis Smoker Varicella Surgical History History of excision of pilonidal cyst (~04/10/20) History of incision and drainage pilonidal cyst0-2016 [place] Family History Grandfather No problems noted. Grandmother Hypertension Father Diabetes Horseshoe kidney Paternal Grandfather Diabetes Alcohol use disorder Asthma Stroke Parkinsons disease Paternal Grandmother Diabetes Asthma Depression Self Anxiety Paternal Aunt Depression Sister Depression Other Breast cancer Substance abuse Social History Smoking/Tobacco Use Status: Former Tobacco Use Tobacco: How many years used: 1 Quit status: not considering quitting Second Hand Exposure: Yes Smoking risk assessment performed?: Yes Alcohol Intake: former Drug use: Daily Substance use type: marijuana Details: 04/05/20- alcohol Adopted: No Caregiver/Support person: No Foster care: No Household members: family Housing: apartment Communication Needs: None Do you need help understanding health information?: Never Pets and animals: Yes Pets and animals: cat(s) and dog(s) Sexually active: Yes Do you think of yourself as: bisexual Current gender identity: female What is your relationship status?: never How often do you talk on the phone with friends or family?: three or more times per week How often do you get together with friends or relatives?: decline to answer How often do you attend christian or hinduism services?: decline to answer Panel score (0-1 are the most socially isolated patients): 1 What type of physical activity do you participate in: aerobic and yoga Duration: 30-45 minutes/day Frequency: 5-6 times per week Iliana/Zoroastrian: Caodaism Special iliana needs: No Seatbelt use: sometimes Helmet use: No Drive 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 Do you feel safe at home: Yes Do you feel safe in your relationship?: Yes Female Reproductive History Menstrual control method: none History History 1 Para 0 Hx # Term Pregnancies 0 Multiple births 0 Hx # Pregnancies 0 Ectopic pregnancies 0 AB induced 0 Hx Number of Living Children 0 AB spontaneous 0 DS: Data Vitals/I&O Vitals and I&O: Vital Signs Temperature 98.2 F 07/22/22 07:45 Pulse 60 07/22/22 07:45 Pulse Rhythm Regular 07/22/22 08:00 Respiratory Rate 16 07/22/22 07:45 Respiratory Depth Normal 07/21/22 20:00 Blood Pressure 104/60 07/22/22 07:45 Blood Pressure Mean 74 07/22/22 07:45 Pulse Oximetry 99 07/22/22 07:45 Pain Level 2 07/21/22 23:00 Comment See vitals flowsheet 07/21/22 04:37 Intake & Output 07/21/22 07/22/22 07/22/22 23:59 11:59 23:59 Intake Total 1050 / 1515.833 Output Total 1850 / 1850 Balance -800 / -334.167 Intake: IV 1050 / 1515.833 Output: Urine 1849 Other: Urine Color [place]
[2022-07-22] MEDS: Measles, Mumps, & Rubella Vaccine 0.5 ML VIAL SC (16:11)
[2022-07-22 16:29] VITALS: BP 130/89; PULSE 77; RESP 16; TEMP 36.7; O2SAT 98
[2022-07-22] MEDS: Water,Injection,Sterile 10 ML VIAL (16:33)
== END 2022-07-22 19:28 | disposition home or self-care (01) | DRG 807 ==
PROVIDERS: Admitting Provider Advanced Practice Midwife; PCP Nurse Practitioner Adult Health; Visit Provider Advanced Practice Midwife
DX: O99.824 Streptococcus B carrier state complicating childbirth (principal); Z37.0 Single live birth; Z3A.39 39 weeks gestation of pregnancy; O99.324 Drug use complicating childbirth; F12.90 Cannabis use, unspecified, uncomplicated; O99.344 Other mental disorders complicating childbirth; O99.52 Diseases of the respiratory system complicating childbirth; J45.909 Unspecified asthma, uncomplicated; F90.9 Attention-deficit hyperactivity disorder, unspecified type; Z87.891 Personal history of nicotine dependence; O69.89X0 Labor and delivery complicated by other cord complications, not applicable or unspecified; R10.32 Left lower quadrant pain
CPT/HCPCS: 36415; 76770; 80307; 85027; 86850; 86900; 86901; 87635; 59025; J2540; J2590; J3490

== ENCOUNTER 2022-09-01 16:05 | Outpatient (REF) | payer MEDICAID, SELFPAY ==
--- NOTE | 2022-09-01 15:20 | PAPFT_PTH ---
PATIENT: Macie Adan LOC: [facility] U#:[id number] AGE/SX: 26/F ROOM: RE09/01/[address]: Cathy Granda CNM : 1995 BED: DIS: 09/01/2022 SPEC #: [id number] RECD: 09/01/22 17:51 STATUS: KATHLEEN REQ #: [id number] TERI: 09/01/22 15:[address]: Cathy Granda DEPT: [facility] Cytology RECD BY: Morelia Hay ENTERED: 09/01/22 17:51 SP TYPE: PAPFT OT DR: Lucero Braun APRN Tissues: 1 - CX/ENDOCX FOR PAP SMEARS Procedures: PAP THIN PREP/UVM Screening Comments: [id number]
== END 2022-09-01 16:06 | disposition home or self-care (01) ==
LOC: LBN 16:05
PROVIDERS: PCP Nurse Practitioner Adult Health; Visit Provider Advanced Practice Midwife
DX: Z12.4 Encounter for screening for malignant neoplasm of cervix (principal)
CPT/HCPCS: 88142

== ENCOUNTER 2023-02-04 10:25 | Outpatient (REF) | payer MEDICAID, SELFPAY | END 2023-02-04 10:26 | disposition home or self-care (01) | LOC: LBN 10:25 | PROVIDERS: PCP Nurse Practitioner Adult Health; Visit Provider Obstetrics & Gynecology | DX: N90.89 Other specified noninflammatory disorders of vulva and perineum (principal); N89.8 Other specified noninflammatory disorders of vagina | CPT/HCPCS: 87480; 87510; 87660 ==

== ENCOUNTER 2023-05-11 13:51 | Emergency (ER) | payer MEDICAID, SELFPAY ==
[2023-05-11 13:55] VITALS: BP 133/73; PULSE 106; RESP 18; TEMP 37.2; O2SAT 99
--- NOTE | 2023-05-11 14:20 | ED.GENADUL_ITS ---
Discharge Plan Disposition Patient Disposition: Home Discharge Details Clinical Impression: Plantar fasciitis, right Primary Care Provider: Lucero Braun ED Provider: Chico Cruz Home Meds and New Rx's Prescriptions: No Action epinephrine [EpiPen 2-Fabián] 0.3 mg/0.3 mL auto-injector 0.3 mg IM ONCE Qty: 1 1RF Rx Instructions: inject into mid upper thigh for swelling of lips/tongue/throat or work of breathing associated with food allergy reaction norethindrone (contraceptive) [Danuta-BE] 0.35 mg tablet 0.35 mg PO DAILY Qty: 84 3RF prenat.vits,amy,xkd-bocq-khcik Tablet 1 tab PO DAILY nystatin 100,000 unit/gram ointment 1 applic topical BID Qty: 30 1RF clobetasol [Temovate] 0.05 % ointment 1 applic topical BID Qty: 30 1RF Discharge Instructions Instructions: Plantar Fasciitis (ED) Additional Instructions: At this time your x-ray shows no evidence of large fracture, unfortunately there is irritation and a small fracture of the calcaneal spur. Your symptoms appear to be consistent with plantar fasciitis. Please remain nonweightbearing on the foot for the next 1 to 2 weeks. Please wear an extremely cushioned shoe with excellent arch support if you do begin to bear weight. Please apply the Voltaren gel 3-4 times per day to the tender area. Please ice the area 3-4 times per day. Please perform the plantar and Achilles stretches that I showed you. Please perform this 3-4 times per day at minimum. If you notice any worsening of your symptoms, or any new symptoms such as vomiting, diarrhea, fever, chills, shortness of breath, chest pain, numbness, weakness, or fainting , please return immediately to the emergency department for reevaluation. Please follow up with your primary care provider as soon as possible for reassessment and reevaluation. As always, it was a pleasure participating in your medical care today. Referrals: Lucero Braun, RESIDENCY PROGRAM COORDINATOR [Primary Care Provider] - Medical Decision Making 27-year-old female with past medical history of chronic hip pain and mobility restriction, presents today for right heel pain. About 5 to 7 days ago the patient stomped hard on the floor and had pain in her right heel. This pain is continued over the last 5 to 7 days. Whenever she walks or ambulates on it makes the pain worse. In addition to this her hip pain has been worse that she has been walking in an atypical fashion over the last few days. Pain in the heel is described as sharp and stabbing with even the lightest touch. She denies any pain in the knee or any significant new pain in the rest of the foot. She denies any numbness or tingling. She has not taken any NSAIDs for the pain. No other complaints at this time. No other modifying factors. She does not have crutches at home. Exam demonstrates a well-appearing female, point tenderness noted over the right calcaneus at the base of the foot. Mild tension noted to the Achilles tendon. No significant calf tenderness. No focal hip tenderness. Range of motion notably restricted for the hips which patient states is her baseline. She states she used to get physical therapy but has not been for quite some time. Symptoms appear clinically consistent with plantar fasciitis. Doubt fracture however we will get an x-ray to rule out osseous abnormality. Patient is notably hesitant to take oral medications, we will give Voltaren gel and crutches. We will place a referral for physical therapy on an outpatient nonemergent basis for her chronic hip mobility restriction. 3:12 PM X-ray results negative for evidence of fracture Of the large bone, however there is a small nondisplaced fracture of the plantar calcaneal spur. Symptoms appear consistent with plantar fasciitis. Patient has been current given crutches, Voltaren gel, recommendations for nonweightbearing for the next 1 to 2 weeks with a gradual transition with good arch support. Discussed stretching exercises, as well as importance of icing. Outpatient physical therapy referral has been placed. I have extensively reviewed the treatment plan and discharge instructions with the patient. I have addressed all patient concerns at this time. The patient was made aware of what symptoms to monitor for that would warrant a return to the emergency department. Discussed the plan with the patient, they demonstrate verbal understanding and agreement with our assessment and plan at this time. The documentation in this chart was dictated using [employer] dictation software. Please excuse any dictation errors. FINDINGS: BONES: There is a small plantar calcaneal spur. There is a fracture at the base of the spur which is nondisplaced. No additional fractures seen. No bony destructive lesion is seen. JOINTS: No dislocation present. SOFT TISSUE: Normal. IMPRESSION: Nondisplaced fracture at the plantar calcaneal spur. HPI General Date/Time Provider Initiated Documentation: 05/11/23 14:03 . HPI Narrative: 27-year-old female with past medical history of chronic hip pain and mobility restriction, presents today for right heel pain. About 5 to 7 days ago the patient stomped hard on the floor and had pain in her right heel. This pain is continued over the last 5 to 7 days. Whenever she walks or ambulates on it makes the pain worse. In addition to this her hip pain has been worse that she has been walking in an atypical fashion over the last few days. Pain in the heel is described as sharp and stabbing with even the lightest touch. She denies any pain in the knee or any significant new pain in the rest of the foot. She denies any numbness or tingling. She has not taken any NSAIDs for the pain. No other complaints at this time. No other modifying factors. She does not have crutches at home. Related Data Home Medications Medication Instructions Recorded Confirmed epinephrine 0.3 mg/0.3 mL 0.3 mg (0.3 mL) IM ONCE ##1 01/15/20 05/11/23 injection, auto-injector (EpiPen 2-Fabián) prenat.vits,amy,xno-otyq-elofx 1 tab PO DAILY 09/29/21 05/11/23 norethindrone (contraceptive) 0.35 0.35 mg PO DAILY #84 tabs 08/03/22 05/11/23 mg tablet (Danuta-BE) clobetasol 0.05 % topical ointment 1 applic topical BID #30 grams 02/16/23 05/11/23 (Temovate) nystatin 100,000 unit/gram topical 1 applic topical BID #30 grams 02/16/23 05/11/23 ointment Previous Rx's Medication Instructions Recorded epinephrine 0.3 mg/0.3 mL 0.3 mg (0.3 mL) IM ONCE ##1 01/15/20 injection, auto-injector (EpiPen 2-Fabián) norethindrone (contraceptive) 0.35 0.35 mg PO DAILY #84 tabs 02/27/23 mg tablet (Danuta-BE) clobetasol 0.05 % topical ointment 1 applic topical BID #30 grams 02/16/23 (Temovate) nystatin 100,000 unit/gram topical 1 applic topical BID #30 grams 02/16/23 ointment Allergies Allergy/AdvReac Type Severity Reaction Status Date / Time lavender (Lavandula Allergy Severe Skin Rash Verified 05/11/23 13:59 angustifolia) melon Allergy Severe tongue Verified 05/11/23 13:59 swelling and throat closing pineapple Allergy Severe tongue Verified 05/11/23 13:59 swells and throat closes latex Allergy Verified 05/11/23 13:59 oxycodone AdvReac Intermediate nausea and Verified 05/11/23 13:59 vomitting tramadol AdvReac Intermediate nausea and Verified 05/11/23 13:59 vomitting cantolope Allergy Severe throat Uncoded 05/11/23 13:59 closing and tongue swelling General Stated Complaint: Orthopedic ZINA: 4 Review of Systems All systems reviewed & are unremarkable except as noted in HPI and below PFSH All Active Problems (Updated 05/11/23 @ 15:11 by Chico Cruz DO) Plantar fasciitis, right (Acute) Vulvar irritation (Acute) Umbilicus discharge (Acute) Left flank pain (Acute) Unspecified problems related to employment (Acute) Housing instability, currently housed, at risk for homelessness (Acute) Need for financial support (Acute) Other specified counseling (Acute) Rubella non-immune status, antepartum (Acute) Hip pain, bilateral (Acute) Chronic upper back pain (Acute) Low back pain (Acute) Medical History Term of male Fever and chills Nausea/vomiting in Smoker Ovarian cyst Pyelonephritis Complicated UTI (urinary tract infection) Contusion of foot, left Pilonidal cyst History of pilonidal cyst x2, one excited in 03/2017; other one recommended removal Eating disorder 2014 started; typically vomits after eating (either self-induced or automatic) Allergic rhinitis (03/30/13) ACTUALLY - POSTNASAL DRIP NOT RHINITIS. Pt. states she doesnt remember this Asthma (02/01/12) Attention deficit hyperactivity disorder (02/01/12) Great student; self-managed without pharmacotherapy Varicella Nicotine dependence Started 2018 Surgical History History of excision of pilonidal cyst (~04/10/20) History of incision and drainage pilonidal cyst0-2016 [place] Family History Grandfather No problems noted. Grandmother Hypertension Father Diabetes Horseshoe kidney Paternal Grandfather Diabetes Alcohol use disorder Asthma Stroke Parkinsons disease Paternal Grandmother Diabetes Asthma Depression Self Anxiety Paternal Aunt Depression Sister Depression Other Breast cancer Substance abuse Social History Smoking/Tobacco Use Status: Former Tobacco Use Tobacco: How many years used: 1 Quit status: not considering quitting Second Hand Exposure: Yes Smoking risk assessment performed?: Yes Alcohol Intake: former Drug use: Daily Substance use type: marijuana Details: 04/05/20- alcohol Adopted: No Caregiver/Support person: No Foster care: No Household members: family Housing: apartment Communication Needs: None Do you need help understanding health information?: Never Pets and animals: Yes Pets and animals: cat(s) and dog(s) Sexually active: Yes Do you think of yourself as: bisexual Current gender identity: female What is your relationship status?: never How often do you talk on the phone with friends or family?: three or more times per week How often do you get together with friends or relatives?: decline to answer How often do you attend adventism or yarsanism services?: decline to answer Panel score (0-1 are the most socially isolated patients): 1 What type of physical activity do you participate in: aerobic and yoga Duration: 30-45 minutes/day Frequency: 5-6 times per week Iliana/Zoroastrianism: Holiness Special iliana needs: No Seatbelt use: sometimes Helmet use: No Drive 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 Date GA/Weeks # Preg Succ Route Wgt Sex Labor Lgth Anesth esia Location Prov Complic 07/21/22 39 No Yes vaginal 3075.923 g Male AvaFabienne[facility] CNM Exam Narrative Exam Narrative: 1.Const: Well-nourished, Well-developed, appearing stated age 2.Eyes: PERRL, no conjunctival injection, and symmetrical lids. 3.ENT: Atraumatic external nose and ears. Moist MM. Neck: Symmetric, trachea midline, No thyromegaly. 4.CVS: +S1/S2, No murmurs or gallops. Peripheral pulses 2+ and equal in all extremities. Brisk capillary refill in all extremities. 5.RESP: Unlabored respiratory effort. Clear to auscultation bilaterally. No wheezes rales or rhonchi 6.GI: Soft, Nontender/Nondistended, No hepatosplenomegaly. No guarding or rebound. 7.MSK: Normocephalic/Atraumatic, point tenderness over the base of the heel/calcaneus. Mild tension noted at the Achilles tendon. No significant pain throughout the rest of the foot. No ankle instability. Range of motion for internal and external rotation of the hips is notably limited. No focal tenderness. No signs of trauma. 8.Skin: Warm, Dry. No rashes or lesions. 9.Neuro: speech and hearing director II-XII grossly intact. Sensation grossly intact, no focal neurologic deficits. 10.Psych: (AAO) x3. Appropriate mood and affect Course Vital Signs Vital signs: Vital Signs Temperature 37.2 C 05/11/23 13:55 Pulse 106 H 05/11/23 13:55 Respiratory Rate 18 05/11/23 13:55 Blood Pressure 133/73 05/11/23 13:55 Pulse Oximetry 99 05/11/23 13:55 Temperature 37.2 C 05/11/23 13:55 Temperature Source Temporal Artery Scan 05/11/23 13:55 Pulse 106 H 05/11/23 13:55 Respiratory Rate 18 05/11/23 13:55 Respiratory Effort Normal, Non-Labored 05/11/23 14:00 Blood Pressure 133/73 05/11/23 13:55 Blood Pressure Position Supine 05/11/23 13:55 Pulse Oximetry 99 05/11/23 13:55 Oxygen Delivery Method Room Air 05/11/23 13:55 Oxygen Flow Rate 0 05/11/23 13:55
[2023-05-11] MEDS: Diclofenac 1% Gel 100 GM TUBE TP (14:24)
--- NOTE | 2023-05-11 14:56 | DI.RAD_ITS ---
Exam(s) XR FOOT RT COMPLETE EXAM: XR FOOT RT COMPLETE CLINICAL HISTORY: tenderness over calc after stomping heel. TECHNIQUE: 2D digital imaging was performed. Three views. COMPARISON: CR,XR XR FOOT LT COMPLETE from 12/04/2020 FINDINGS: BONES: There is a small plantar calcaneal spur. There is a fracture at the base of the spur which is nondisplaced. No additional fractures seen. No bony destructive lesion is seen. JOINTS: No dislocation present. SOFT TISSUE: Normal. IMPRESSION: Nondisplaced fracture at the plantar calcaneal spur. DATA REPOSITORY: RADIATION DOSE DELIVERED:
== END 2023-05-11 15:29 | disposition home or self-care (01) ==
PROVIDERS: Emergency Provider Student in an Organized Health Care Education/Training Program; PCP Nurse Practitioner Adult Health
DX: M79.671 Pain in right foot (principal); M72.2 Plantar fascial fibromatosis; M77.31 Calcaneal spur, right foot; Z87.891 Personal history of nicotine dependence
CPT/HCPCS: 81025; 99283; 73630

== ENCOUNTER 2023-08-03 16:12 | Outpatient (REF) | payer MEDICAID, SELFPAY | END 2023-08-03 16:13 | disposition home or self-care (01) | LOC: LBN 16:12 | PROVIDERS: PCP Nurse Practitioner Adult Health; Visit Provider Advanced Practice Midwife | DX: B37.31 Acute candidiasis of vulva and vagina (principal); N90.89 Other specified noninflammatory disorders of vulva and perineum | CPT/HCPCS: 87480; 87510; 87660 ==

== ENCOUNTER → 2023-11-29 01:46 | Outpatient (CLI) | payer MEDICAID, SELFPAY ==
--- NOTE | 2023-11-29 11:08 | DI.RAD_ITS ---
Exam(s) XR CERVICAL SPINE COMP 4-5V EXAM: XR CERVICAL SPINE COMP 4-5V CLINICAL HISTORY: r/o bony abnormality M54.2 CERVICALGIA. TECHNIQUE: 2D digital imaging was performed. Six images were obtained. AP, odontoid, lateral and matt ateral oblique images were obtained. COMPARISON: No exams were available for comparison FINDINGS: The odontoid is intact. The lateral masses are well aligned. There is normal alignment of the cervi amy spine. The vertebral bodies, disc spaces and posterior elements are well maintained. No acute f racture or subluxation is present. No significant neural foraminal stenosis is present. The cervical thoracic junction is well maintained. The prevertebral soft tissues are unremarkable. Lung apices a re clear. IMPRESSION: Unremarkable radiographs of the cervical spine. DATA REPOSITORY: RADIATION DOSE DELIVERED:
== END ==
PROVIDERS: PCP Nurse Practitioner Adult Health; Visit Provider Nurse Practitioner Adult Health
DX: M54.2 Cervicalgia (principal)
CPT/HCPCS: 72050

== ENCOUNTER 2023-12-15 02:26 | Outpatient (CLI) | payer MEDICAID, SELFPAY ==
[2023-12-15 14:31] LABS: C-Reactive Protein < 0.50 mg/dL (<or=0.5)
[2023-12-15 22:33] LABS: Rheumatoid Factor <8.6 IU/mL (<12.0)
[2023-12-16 10:01] LABS: Cyclic Citrullinated Peptide <2.5 U/mL (<5.0)
== END 2023-12-15 02:27 | disposition home or self-care (01) ==
LOC: LBO 02:26
PROVIDERS: Absent Provider Nurse Practitioner Adult Health; PCP Nurse Practitioner Adult Health; Referring Provider Nurse Practitioner Adult Health; Visit Provider Nurse Practitioner Adult Health
DX: M79.641 Pain in right hand (principal); M79.642 Pain in left hand
CPT/HCPCS: 36415; 86200; 86140; 86431

== ENCOUNTER 2024-06-13 13:44 | Emergency (ER) | payer MEDICAID, SELFPAY ==
[2024-06-13 14:06] VITALS: BP 139/82; PULSE 73; RESP 18; TEMP 36.4; O2SAT 100
[2024-06-13 14:48] LABS: Bilirubin Negative (Negative); Blood Large (Negative); Clarity Sl Cloudy (Clear); Glucose Negative (Negative); Ketones Negative (Negative); Leukocyte Esterase Negative (Negative); Nitrite Negative (Negative); Specific Gravity >= 1.030 (1.005-1.025); Urobilinogen 0.2 mg/dL (Up to 0.2); pH 5.5 (5-8)
[2024-06-13 14:58] LABS: WBC 0-2 HPF (0-5)
[2024-06-13 14:59] LABS: Bacteria Few HPF (Negative); Crystals Few Calcium Oxalate HPF (Negative); Epithelial Cells Few HPF (Negative)
[2024-06-13 15:00] LABS: C & S Indicated? No; Casts Negative LPF (Negative); Mucus Moderate (Negative)
[2024-06-13 15:14] VITALS: BP 119/77; PULSE 71; RESP 20; TEMP 37; O2SAT 100
--- NOTE | 2024-06-13 15:41 | ED.GENADUL_ITS ---
Discharge Plan Disposition Patient Disposition: Home Condition: Stable Discharge Details Clinical Impression: Abdominal pain of unknown cause Primary Care Provider: Lucero Braun ED Provider: [place] Dawn Home Meds and New Rx's Prescriptions: Continued epinephrine [EpiPen 2-Fabián] 0.3 mg/0.3 mL auto-injector 0.3 mg IM ONCE Qty: 1 1RF Rx Instructions: inject into mid upper thigh for swelling of lips/tongue/throat or work of breathing associated with food allergy reaction duloxetine 30 mg capsule,delayed release(DR/EC) 30 mg PO DAILY Qty: 30 1RF Rx Instructions: Chronic pain, anxiety Discharge Instructions Instructions: Viral gastroenteritis in adults, Ketorolac (Systemic), Ondansetron, Abdominal Pain, Adult ED Additional Instructions: You were seen in the emergency department for your stomach aches ongoing today with some diarrhea and vomiting. You likely have a viral stomach bug, your CAT scan is completely normal, if you continue to have right upper quadrant abdominal pain you may seek an ultrasound of the gallbladder but there was nothing seen today suggest gallbladder infection, sometimes gallstones do not show up on CT scan. I have sent you home with further ketorolac tablets as well as nausea tablets to take in about 6 hours before bed. Please stay well- hydrated and nourished, return for any severe increase in pain especially with fever, vomiting black or coffee-ground material, black or bloody diarrhea or complete constipation and inability to pass gas. Referrals: Lucero Braun, [employer] [Primary Care Provider] - Discharge Data Discharge Date/Time-TO BE ENTERED AT DEPARTURE: 06/13/24 19:06 HPI General Date/Time Provider Initiated Documentation: 06/13/24 13:50 . HPI Narrative: 28 year-old female presents to ED today by POV/ambulating with her spouse with a chief complaint of diffuse abdominal pain since 299 with nausea, one episode of vomiting, cramping central abdominal pain and diarrhea but also struggling to move bowels. Quality described as cramping/twisting, no radiation to fever, intractable vomiting, black/bloody diarrhea, chest pain, cough/URI symptoms, headache, body aches. Severity is described as moderate to severe. Palliating factors include nothing specific attempted. Provoking factors include nothing specific. Patient not anticoagulated. Related Data Home Medications ?Medication ?Instructions ?Recorded ?Confirmed epinephrine 0.3 mg/0.3 mL 0.3 mg (0.3 mL) IM ONCE ##1 01/15/20 06/13/24 injection, auto-injector (EpiPen 2-Fabián) duloxetine 30 mg capsule,delayed 30 mg PO DAILY #30 caps 03/23/24 06/13/24 release Previous Rx's ?Medication ?Instructions ?Recorded epinephrine 0.3 mg/0.3 mL 0.3 mg (0.3 mL) IM ONCE ##1 01/15/20 injection, auto-injector (EpiPen 2-Fabián) duloxetine 30 mg capsule,delayed 30 mg PO DAILY #30 caps 03/23/24 release Allergies Allergy/AdvReac Type Severity Reaction Status Date / Time lavender (Lavandula Allergy Severe Skin Rash Verified 06/13/24 14:10 angustifolia) melon Allergy Severe tongue Verified 06/13/24 14:10 swelling and throat closing pineapple Allergy Severe tongue Verified 06/13/24 14:10 swells and throat closes latex Allergy Other (See Verified 06/13/24 14:10 Comment) oxycodone AdvReac Intermediate nausea and Verified 06/13/24 14:10 vomitting tramadol AdvReac Intermediate nausea and Verified 06/13/24 14:10 vomitting cantolope Allergy Severe throat Uncoded 06/13/24 14:10 closing and tongue swelling General Stated Complaint: Abd Prob ZINA: 3 Review of Systems All systems reviewed & are unremarkable except as noted in HPI and below Exam Narrative Exam Narrative: GENERAL APPEARANCE: Well-nourished, non-toxic, awake and alert, atraumatic, no acute distress. SKIN: Warm, pink, dry, intact, without rashes/lesions/ulcerations. HEAD: Normocephalic, atraumatic, normal hair distribution for gender/age. EYES: Normal conjunctiva, no exudates on lids/lashes. ENT: Nares patent, no circumoral cyanosis, no facial swelling NECK: Supple, trachea midline, painless cervical ROM. LUNGS/CHEST: Lungs CTA bilaterally- no rhonchi/rales/wheezes diffusely, non- labored respirations, normal A/P diameter, symmetrical expansion, no chest wall deformity HEART (CV/PV): Regular rate and rhythm without murmur, no peripheral edema, no JVD. ABDOMEN: Soft, non-distended, no guarding, epigastric tenderness without Alvarez's sign, no CVA tenderness to percussion bilaterally. MSK: Normal ROM, no swelling/deformity to bilateral UEs or LEs, moving all extremities without weakness, no cyanosis, spine midline without tenderness, normal curvature. NEURO: Mental Status AAOx4 - alert to person, place, time, events No facial droop, no forehead involvement. Motor: No focal weakness - strength 5/5 in bilateral UEs and LEs, proximal and distal, symmetric. Sensory: sensation intact to light touch globally. Gait normal: patient ambulated without ataxia into ED room. PSYCH: euthymic, cooperative, pleasant, appropriate speech Course Vital Signs Vital signs: Vital Signs Temperature 36.4 C 06/13/24 14:06 Pulse 73 06/13/24 14:06 Respiratory Rate 18 06/13/24 14:06 Blood Pressure 139/82 06/13/24 14:06 Pulse Oximetry 100 06/13/24 14:06 Temperature 37.0 C 06/13/24 15:14 Temperature Source Temporal Artery Scan 06/13/24 15:14 Pulse 71 06/13/24 15:14 Pulse Rhythm Regular 06/13/24 15:14 Pulse Strength Normal 06/13/24 15:14 Respiratory Rate 20 06/13/24 15:14 Respiratory Effort Normal 06/13/24 15:14 Respiratory Depth Normal 06/13/24 15:14 Respiratory Pattern Normal 06/13/24 15:14 Blood Pressure 119/77 06/13/24 15:14 Blood Pressure Mean 91 06/13/24 15:14 Blood Pressure Position Supine 06/13/24 15:14 Pulse Oximetry 100 06/13/24 15:14 Oxygen Delivery Method Room Air 06/13/24 15:14 Oxygen Flow Rate 0 06/13/24 15:14 Pain Level 9 06/13/24 15:14 Lab/Test Results Lab/Test Results: Laboratory Tests Range/Units 06/13/24 14:18 Urine Color (Yellow) Yellow Urine Clarity (Clear) Sl Cloudy Urine pH (5-8) 5.5 Ur Specific [place] (1.005-1.025) >= 1.030 H Urine Protein (Neg-Trace) mg/dL 100 H Urine Ketones (Negative) mg/dL Negative Urine Blood (Negative) Large H Urine Nitrite (Negative) Negative Urine Bilirubin (Negative) Negative Urine Urobilinogen (Up to 0.2) mg/dL 0.2 Ur Leukocyte Esterase (Negative) Negative Urine RBC (0-2) HPF 10-20 H Urine WBC (0-5) HPF 0-2 Ur Epithelial Cells (Negative) HPF Few Urine Crystals (Negative) HPF Few Calcium Oxalate Urine Bacteria (Negative) HPF Few Urine Casts (Negative) LPF Negative Urine Mucus (Negative) Moderate Ur Culture Indicated? No Urine Glucose (Negative) mg/dL Negative Medical Decision Making This dictation utilizes [id number] dictation software and may contain unedited grammatical errors. 28 year-old female presents to ED today by POV/ambulating with her spouse with a chief complaint of diffuse abdominal pain since 299 with nausea, one episode of vomiting, cramping central abdominal pain and diarrhea but also struggling to move bowels. Quality described as cramping/twisting, no radiation to fever, intractable vomiting, black/bloody diarrhea, chest pain, cough/URI symptoms, headache, body aches. Severity is described as moderate to severe. Palliating factors include nothing specific attempted. Provoking factors include nothing specific. Patients' medical history: Pyelonephritis, UTI, ovarian cyst, asthma, chronic pain. Family and social history: noncontributory. Pertinent exam findings / vital signs include benign cardiopulmonary exam, afebrile, epigastric tenderness without Alvarez sign, no CVA tenderness to percussion. Differential / pathologies of concern include gastroenteritis, biliary colic, enteritis, unlikely SBO, GERD, gastritis, unlikely sepsis. Diagnostic studies of: -CBC, CMP, lipase, magnesium, UA, Upreg, CT ABD/Pelvis w Contrast. -CBC shows no leukocytosis, no anemia, no bandemia -CMP without actionable abnormality -Magnesium within normal limits -Lipase negative -UA shows no evidence of UTI -CT scan shows no acute findings Interventions of: -Toradol & Zofran to-go. ED Course/Assessment/Plan: Otherwise healthy 28-year-old male presents with crampy abdominal pain and diarrhea since 299 this morning-no evidence of severe acute pathology on laboratory workup or CT scan, I do suspect gastroenteritis and recommend she try conservative management at home, strict return criteria for intractable nausea or vomiting, black or bloody stools, worsening of pain with fever. Pain was well-controlled in the emergency department with Tylenol and Toradol patient was comfortably sleeping in visit Findings not consistent with biliary colic, electrolyte abnormality, pancreatitis, acute bowel pathology. Disposition of Abdominal Pain of Unknown Cause. Patient verbalized understanding of the plan and return to ED criteria and engaged in shared decision making. Medical Records Medical records reviewed: Yes I reviewed the patient's medical records. Imaging Data Radiologic Study: Attestation: I personally reviewed and interpreted this imaging study as follows: Imaging: CT Scan Radiologist's impression: EXAM: CT ABDOMEN PELVIS W CLINICAL HISTORY: RUQ tenderness, nausea. TECHNIQUE: Imaging Protocol: Axial computed tomography images with coronal and sagittal reformatted images were created and reviewed CONTRAST MATERIAL: Intravenous: Omnipaque-350 75cc Oral: None COMPARISON: CT CT ABDOMEN PELVIS W from 05/08/2021 FINDINGS: VISUALIZED LUNG BASES: No nodules nor pleural effusions evident. ABDOMEN: There is no ascites. LIVER: There are no focal hepatic lesions evident. No dilated intrahepatic ducts. GALLBLADDER/BILIARY: No obvious gallbladder pathology. CBD is not dilated. PANCREAS: No evidence of pancreatic mass nor dilatation of the pancreatic duct. SPLEEN: Spleen is not enlarged. No obvious intrasplenic lesions. Splenic and portal veins are patent. ADRENALS: There are no significant adrenal masses. KIDNEYS:No cysts evident. No solid renal masses. No calculi nor hydronephrosis.. ABDOMINAL AORTA: Abdominal aorta is not enlarged. LYMPH NODES:There is no retroperitoneal nor paraaortic adenopathy. ABDOMINAL WALL: No evidence of significant anterior abdominal wall nor inguinal hernia. GI: There is no evidence of bowel obstruction, free air, nor abscess. PELVIS: GI: No evidence of appendicitis.No evidence of sigmoid diverticulitis. LYMPH NODES: There is no intrapelvic nor inguinal adenopathy. REPRODUCTIVE: Uterus and ovaries appear unremarkable. Previously present cyst in the right ovary is no longer seen. Both ovaries appear unremarkable. Also no extraovarian adnexal masses. No free fluid in the pelvis. URINARY BLADDER: No calculi nor obvious masses evident. No evidence of urinary bladder wall thickening, as was evident on the May 2021 CT scan. OSSEOUS: No fractures and no significant osseous lesions. Sacroiliac joints appear unremarkable. IMPRESSION: 1. No significant findings in the abdomen and pelvis. 2. Right upper quadrant pain would recommend follow-up gallbladder ultrasound to determine if there are gallstones which are not visible on CT scan, as is sometimes the case. However, there is no gallbladder wall thickening nor pericholecystic fluid on today's study. Urinary bladder appears unremarkable on today's study with no evidence of cystitis, as was evident on the prior CT scan of 05/08/2021 Report called by myself to ER provider 06/13/2024 at 5:02 p.m. Lab Data Lab results reviewed: Yes I reviewed the patient's lab results. Labs: Laboratory Tests Range/Units 06/13/24 06/13/24 14:18 15:51 WBC (4.4-10.8) 10^3/uL 6.62 RBC (3.93-5.22) 10^6/uL 4.28 Hgb (11.2-15.7) g/dL 13.2 Hct (36.0-46.0) % 39.2 MCV (80-95) fL 92 MCH (27.0-33.0) pg 30.8 MCHC (32.0-36.0) % 33.7 RDW (11.7-14.6) % 11.1 L Plt Count (130-400) 10^3/uL 250 MPV (8.0-11.0) fL 10.5 Immature Gran % % 0.3 Neutrophils % % 84.6 Lymphocytes % % 6.8 Monocytes % % 7.7 Eosinophils % % 0.3 Basophils % % 0.3 Nucleated RBC % (0.0-0.3) % 0.0 Absolute Neutrophils (1.2-6.7) 10^3/uL 5.60 Absolute Lymphocytes (1.2-3.4) 10^3/uL 0.45 L Absolute Monocytes (0.1-0.8) 10^3/uL 0.51 Absolute Eosinophils (0.0-0.7) 10^3/uL 0.02 Absolute Basophils (0.0-0.2) 10^3/uL 0.02 Sodium (136-145) mmol/L 139 Potassium (3.5-5.1) mmol/L 3.7 Chloride (98-107) mmol/L 107 Carbon Dioxide (21.0-32.0) mmol/L 26.0 Anion Gap (3-11) mmol/L 6.0 BUN (7-18) mg/dL 8 Creatinine (0.55-1.02) mg/dL 0.8 Est GFR (CKD-EPI 2020) (mL/min/1.73m2) 103.50 Glucose (74-106) mg/dL 137 H Calcium (8.5-10.1) mg/dL 8.4 L Magnesium (1.8-2.4) mg/dL 1.8 Total Bilirubin (0.2-1.0) mg/dL 0.22 AST (15-37) U/L 10 L ALT (14-59) U/L 16 Alkaline Phosphatase (46-116) U/L 58 Total Protein (6.4-8.2) g/dL 7.3 Albumin (3.4-5.0) g/dL 3.7 Lipase (<78) U/L 33 Urine Color (Yellow) Yellow Urine Clarity (Clear) Sl Cloudy Urine pH (5-8) 5.5 Ur Specific [place] (1.005-1.025) >= 1.030 H Urine Protein (Neg-Trace) mg/dL 100 H Urine Ketones (Negative) mg/dL Negative Urine Blood (Negative) Large H Urine Nitrite (Negative) Negative Urine Bilirubin (Negative) Negative Urine Urobilinogen (Up to 0.2) mg/dL 0.2 Ur Leukocyte Esterase (Negative) Negative Urine RBC (0-2) HPF 10-20 H Urine WBC (0-5) HPF 0-2 Ur Epithelial Cells (Negative) HPF Few Urine Crystals (Negative) HPF Few Calcium Oxalate Urine Bacteria (Negative) HPF Few Urine Casts (Negative) LPF Negative Urine Mucus (Negative) Moderate Ur Culture Indicated? No Urine Glucose (Negative) mg/dL Negative Quality:SDOH Health Related Social Needs: No Data to Display PFSH All Active Problems (Updated 06/13/24 @ 18:39 by ANNY Wilburn) Abdominal pain of unknown cause (Acute) Musculoskeletal pain (Acute) Myofascial muscle pain (Acute) Lichen sclerosus (Acute) Vulvar irritation (Acute) Umbilicus discharge (Acute) Left flank pain (Acute) Unspecified problems related to employment (Acute) Housing instability, currently housed, at risk for homelessness (Acute) Need for financial support (Acute) Rubella non-immune status, antepartum (Acute) Hip pain, bilateral (Acute) Chronic upper back pain (Acute) Low back pain (Acute) Medical History Other specified counseling Term of male Fever and chills Nausea/vomiting in Smoker Ovarian cyst Pyelonephritis Complicated UTI (urinary tract infection) Contusion of foot, left Pilonidal cyst History of pilonidal cyst x2, one excited in 03/2017; other one recommended removal Eating disorder 2014 started; typically vomits after eating (either self-induced or automatic) Allergic rhinitis (03/30/13) ACTUALLY - POSTNASAL DRIP NOT RHINITIS. Pt. states she doesnt remember this Asthma (02/01/12) Attention deficit hyperactivity disorder (02/01/12) Great student; self-managed without pharmacotherapy Varicella Nicotine dependence Started 2018 Surgical History History of excision of pilonidal cyst (~04/10/20) History of incision and drainage pilonidal cyst-2016 [place] Family History Grandfather No problems noted. Grandmother Hypertension Father Diabetes [place] kidney Paternal Grandfather Diabetes Alcohol use disorder Asthma Stroke Parkinsons disease Paternal Grandmother Diabetes Asthma Depression Self Anxiety Paternal Aunt Depression Sister Depression Other Breast cancer Substance abuse Social History Smoking/Tobacco Use Status: Current-Occasional Tobacco Type: cigarettes Tobacco: How many years used: 1 Quit status: has quit before Second Hand Exposure: Yes Smoking risk assessment performed?: Yes Alcohol Intake: former Drug use: Daily Substance use type: marijuana Details: 04/05/20- alcohol Adopted: No Caregiver/Support person: No Foster care: No Household members: family Housing: apartment Communication Needs: None Do you need help understanding health information?: Never Pets and animals: Yes Pets and animals: cat(s) and dog(s) Sexually active: Yes Do you think of yourself as: bisexual Current gender identity: female What is your relationship status?: never How often do you talk on the phone with friends or family?: three or more times per week How often do you get together with friends or relatives?: decline to answer How often do you attend anglican or anabaptist services?: decline to answer Panel score (0-1 are the most socially isolated patients): 1 What type of physical activity do you participate in: aerobic and yoga Duration: 30-45 minutes/day Frequency: 5-6 times per week Iliana/Mandaeism: Yazidi Special iliana needs: No Seatbelt use: sometimes Helmet use: No 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 Date GA/Weeks # Preg Succ Route Wgt Sex Labor Lgth Anesth esia Location [facility] 07/21/22 39 No Yes vaginal 3075.923 g Male Marla meyer CNM
--- NOTE | 2024-06-13 15:45 | DI.CT_ITS ---
Exam(s) CT ABDOMEN PELVIS W EXAM: CT ABDOMEN PELVIS W CLINICAL HISTORY: RUQ tenderness, nausea. TECHNIQUE: Imaging Protocol: Axial computed tomography images with coronal and sagittal reformatted images were created and reviewed CONTRAST MATERIAL: Intravenous: Omnipaque-350 75cc Oral: None COMPARISON: CT CT ABDOMEN PELVIS W from 05/08/2021 FINDINGS: VISUALIZED LUNG BASES: No nodules nor pleural effusions evident. ABDOMEN: There is no ascites. LIVER: There are no focal hepatic lesions evident. No dilated intrahepatic ducts. GALLBLADDER/BILIARY: No obvious gallbladder pathology. CBD is not dilated. PANCREAS: No evidence of pancreatic mass nor dilatation of the pancreatic duct. SPLEEN: Spleen is not enlarged. No obvious intrasplenic lesions. Splenic and portal veins are paten t. ADRENALS: There are no significant adrenal masses. KIDNEYS:No cysts evident. No solid renal masses. No calculi nor hydronephrosis.. ABDOMINAL AORTA: Abdominal aorta is not enlarged. LYMPH NODES:There is no retroperitoneal nor paraaortic adenopathy. ABDOMINAL WALL: No evidence of significant anterior abdominal wall nor inguinal hernia. GI: There is no evidence of bowel obstruction, free air, nor abscess. PELVIS: GI: No evidence of appendicitis.No evidence of sigmoid diverticulitis. LYMPH NODES: There is no intrapelvic nor inguinal adenopathy. REPRODUCTIVE: Uterus and ovaries appear unremarkable. Previously present cyst in the right ovary is no longer seen. Both ovaries appear unremarkable. Also no extraovarian adnexal masses. No free flu id in the pelvis. URINARY BLADDER: No calculi nor obvious masses evident. No evidence of urinary bladder wall thickeni ng, as was evident on the May 2021 CT scan. OSSEOUS: No fractures and no significant osseous lesions. Sacroiliac joints appear unremarkable. IMPRESSION: 1. No significant findings in the abdomen and pelvis. 2. Right upper quadrant pain would recommend follow-up gallbladder ultrasound to determine if there a re gallstones which are not visible on CT scan, as is sometimes the case. However, there is no gallb ladder wall thickening nor pericholecystic fluid on today's study. Urinary bladder appears unremarkable on today's study with no evidence of cystitis, as was evident on the prior CT scan of 05/08/2021 Report called by myself to ER provider 06/13/2024 at 5:02 p.m. RADIATION DOSE DELIVERED: 408.48mGy.cm Total DLP DATA REPOSITORY: All CT scans at this facility are submitted to the National Radiology Data Registry (NRDR) Dose Index Registry (DIR) with the [employer] (ACR). RADIATION OPTIMIZATION: All CT scans at this facility use at least one of these dose optimization te chniques: automated exposure control; mA and/or kV adjustment per patient size (includes targeted exa ms where dose is matched to clinical indication); or iterative reconstruction.
[2024-06-13] MEDS: Ketorolac 15 MG/ML VIAL IVP (16:22)
[2024-06-13] MEDS: ACETAMINOPHEN 1,000 MG/100 ML BAG 400 MG IVPB (16:23)
[2024-06-13] MEDS: Omnipaque 350 MG/ML 100 ML BTL IJ (16:43)
[2024-06-13 16:57] LABS: Abs Immature Grans 0.02 10^3/uL (0.0-0.06); Absolute Basophil Count 0.02 10^3/uL (0.0-0.2); Absolute Eosinophil Count 0.02 10^3/uL (0.0-0.7); Absolute Lymphocyte Count 0.45 10^3/uL (1.2-3.4); Absolute Monocyte Count 0.51 10^3/uL (0.1-0.8); Basophils % 0.3 %; Eosinophils % 0.3 %; HCT 39.2 % (36.0-46.0); HGB 13.2 g/dL (11.2-15.7); Immature Grans % 0.3 %; Lymphocytes % 6.8 %; MCH 30.8 pg (27.0-33.0); MCHC 33.7 % (32.0-36.0); MCV 92 fL (80-95); MPV 10.5 fL (8.0-11.0); Monocytes % 7.7 %; Neutrophils % 84.6 %; Platelet Count 250 10^3/uL (130-400); RBC 4.28 10^6/uL (3.93-5.22); RDW 11.1 % (11.7-14.6); RDW-SD 37.4 fL; WBC 6.62 10^3/uL (4.4-10.8)
[2024-06-13 18:03] LABS: ALT 16 U/L (14-59); AST 10 U/L (15-37); Albumin 3.7 g/dL (3.4-5.0); Alkaline Phosphatase 58 U/L (46-116); BUN 8 mg/dL (7-18); Bilirubin, Total 0.22 mg/dL (0.2-1.0); CREATININE 0.8 mg/dL (0.55-1.02); Calcium 8.4 mg/dL (8.5-10.1); Chloride 107 mmol/L (98-107); Glucose 137 mg/dL (74-106); Lipase 33 U/L (<78); Magnesium 1.8 mg/dL (1.8-2.4); Potassium 3.7 mmol/L (3.5-5.1); Sodium 139 mmol/L (136-145); Total Protein 7.3 g/dL (6.4-8.2)
[2024-06-13 18:11] VITALS: BP 139/82; PULSE 73; RESP 20; TEMP 37; O2SAT 100
[2024-06-13] MEDS: Ketorolac 10 MG TAB 40 MG PO (18:54)
[2024-06-13] MEDS: Ondansetron O.D.T. 4 MG TABEF, 3 TABS/BTL PO (18:55)
[2024-06-13 19:07] VITALS: BP 139/82; PULSE 73; RESP 20; TEMP 37; O2SAT 100
== END 2024-06-13 19:06 | disposition home or self-care (01) ==
PROVIDERS: Emergency Medicine; Emergency Provider Physician Assistant; PCP Nurse Practitioner Adult Health
DX: R10.30 Lower abdominal pain, unspecified (principal); R19.7 Diarrhea, unspecified; R11.2 Nausea with vomiting, unspecified
CPT/HCPCS: 36415; 80053; 83690; 96365; 96375; 99285; 74177; 81003; 81015; 81025; 83735; 85025; 99284; J0131; J1885; J3490

== ENCOUNTER 2024-09-19 15:37 | Outpatient (REF) | payer MEDICAID, SELFPAY | END 2024-09-19 15:38 | disposition home or self-care (01) | LOC: LBN 15:37 | PROVIDERS: PCP Nurse Practitioner Adult Health; Visit Provider Nurse Practitioner Women's Health | DX: N76.0 Acute vaginitis (principal) | CPT/HCPCS: 87480; 87510; 87660 ==

== ENCOUNTER 2025-01-31 13:29 | Outpatient (REF) | payer MEDICAID, SELFPAY | END 2025-01-31 13:30 | disposition home or self-care (01) | LOC: LBN 13:29 | PROVIDERS: PCP Nurse Practitioner Adult Health; Visit Provider Obstetrics & Gynecology | DX: R30.0 Dysuria (principal) | CPT/HCPCS: 87086 ==